=== PATIENT | male | born 1980 | race Caucasian/White ===

== ENCOUNTER 2020-08-19 11:42 | Outpatient (CLI) | payer OTHER, SELFPAY ==
--- NOTE | 2020-08-19 11:58 | ECG_ITS ---
Measurements Intervals Henry Rate: 65 P: 16 AK: 143 QRS: 120 QRSD: 113 T: 74 QT: 409 QTc: 427 Interpretive Statements SINUS RHYTHM WITH SINUS ARRHYTHMIA DELAYED PRECORDIAL R/S TRANSITION BORDERLINE T WAVE ABNORMALITY- ANTEROLAT/HIGH LAT LEADS BORDERLINE ECG Electronically Signed On 08-19-2020 13:02:31 INFORMATICS EDUCATOR by Gabino Mercer D.O.
[2020-08-19 12:50] LABS: Hematocrit 43.5 % (42.0-52.0); Mean Corpuscular HGB Conc 32.2 g/dl (32-36); Mean Corpuscular Hemoglobin 28.8 pg (26-34); Mean Corpuscular Volume 89.5 fl (80-100); Mean Platelet Volume 10.3 fl (7.4-10.4); Platelet Count Result 278 k/mm3 (150-375); Red Blood Count 4.86 M/mm3 (4.6-6.20); Red Cell Distribution Width 13.6 % (11.5-14.5)
[2020-08-19 13:35] LABS: Prostate Specific Antigen 0.5 ng/mL (< OR = 4.0)
== END 2020-08-19 11:43 | disposition home or self-care (01) ==
LOC: ANHIMG 11:44
PROVIDERS: PCP Family Medicine; Visit Provider Physician Assistant Medical
DX: R07.9 Chest pain, unspecified (principal); I10 Essential (primary) hypertension; Z12.5 Encounter for screening for malignant neoplasm of prostate
CPT/HCPCS: 36415; 84153; 84443; 85027; 93005; G0103

== ENCOUNTER 2020-09-14 08:29 | Outpatient (CLI) | payer OTHER, SELFPAY ==
--- NOTE | 2020-09-14 08:53 | ECHO_ITS ---
Patient Info Name: Mike Alicea Age: 40 years : 1980 Gender: Male Ht: 74 in Wt: 300 lbs BSA: 2.72 m2 HR: 75 bpm BP: 150 / 101 mmHg Heart Rhythm: Sinus Rhythm Technical Quality: Fair Exam Date: 09/14/2020 9:14 AM Exam Location: [facility] Pulmonary Patient Status: Outpatient Admit Date: 09/14/2020 Staff Ordering Physician: Kristy Guardado PAC Automatic Print Developer: Cooper Stafford RDCS Attending Provider: Kristy Guardado Referring Physician: Geo FLEMING; Exam Type: CA echo doppler color flow Study Info Indications R07.9 - Chest pain, unspecified Complete two-dimensional, color flow and Doppler transthoracic echocardiogram is performed. History/Risk Factors Chest pain; HTN. Summary 1. Complete two-dimensional, color flow and Doppler transthoracic echocardiogram is performed. 2. Left ventricular chamber dimension is normal. 3. Left ventricular systolic function is normal, estimated at 60-65%. 4. The left ventricular diastolic function is normal. Left Ventricle Left ventricular chamber dimension is normal. Left ventricular systolic function is normal, estimated at 60-65%. The left ventricular diastolic function is normal. Right Ventricle Right ventricular chamber dimension is normal. Right ventricular systolic function is normal. Left Atria Left atrial chamber dimension is normal. Right Atria Right atrial chamber dimension is normal. Aortic Valve The aortic valve is trileaflet. There is no aortic valve stenosis. There is no aortic valve regurgitation. Pulmonic Valve There is no pulmonic regurgitation. Mitral Valve There is no mitral valve stenosis. There is no mitral valve regurgitation. Tricuspid Valve There is no tricuspid valve regurgitation. Pericardium/Pleural There is no pericardial effusion. Inferior Vena Cava Normal inferior vena cava with >50% collapse upon inspiration consistent with normal right atrial pressure, 5 mmHg. Aorta The aortic root size at the sinus of Valsalva is normal. Left Ventricular Outflow Tract Name Value Normal LVOT 2D LVOT Diameter 2.0 cm LVOT Doppler LVOT Peak Velocity 130 cm/s LVOT Peak Gradient 7 mmHg LVOT Mean Gradient 3 mmHg LVOT VTI 26 cm LVOT VTI/AV VTI Ratio 0.8 LVOT Stroke Volume 81 ml LVOT CO 4.1 l/min LVOT CI 1.5 l/min/m2 Mitral Valve Name Value Normal MV Doppler MV Decel [place] 388 cm/s2 MV PHT 69 ms MV Area (PHT) 3.2 cm2 4.0-5.0 MV Diastolic Function
--- NOTE | 2020-09-14 08:53 | EST_ITS ---
Patient Info Name: Mike Alicea Age: 40 years : 1980 Gender: Male Ht: 74 in Wt: 300 lbs BSA: 2.72 m2 Exam Date: 09/14/2020 10:07 AM Exam Location: [facility] Stress Patient Status: Outpatient Admit Date: 09/14/2020 Staff Ordering Physician: Kristy Guardado PAC Attending Provider: Kristy Guardado Exercise Technologist: Panfilo Fink RDCS, RT Exercise Physician: Gabino Mercer DO Exam Type: CA stress test treadmill Study Info A treadmill exercise stress test was performed. Summary 1. 1. Negative Royer exercise stress test for ischemic ST changes by ECG criteria. However, he achieved only 81% MPHR for age group which decreases sensitivity of the test. He is limited by shortness of breath. 2. 2. Poor functional capacity, achieving 7 METs of workload. 3. 3. Hypertensive response to exercise. 4. 4. Appropriate HR response to exercise. 5. 5. Appropriate HR recovery at 1 minute post exercise. 6. 6. No imaging with stress testing. 7. 7. Patient informed of the above results. Protocol: Royer Stress ECG Details Stage: REST Duration (min): 2 min : 15 sec Speed (mph): 0.0 Grade (%): 0 HR (bpm): 75 SBP (mmHg): 137 DBP (mmHg): 90 METS: --- Stage: REST Duration (min): 4 min : 15 sec Speed (mph): 0.0 Grade (%): 0 HR (bpm): 82 SBP (mmHg): 137 DBP (mmHg): 90 METS: --- Stage: STAGE 1 Duration (min): 1 min : 0 sec Speed (mph): 1.7 Grade (%): 10 HR (bpm): 108 SBP (mmHg): 137 DBP (mmHg): 90 METS: --- Stage: STAGE 1 Duration (min): 2 min : 0 sec Speed (mph): 1.7 Grade (%): 10 HR (bpm): 118 SBP (mmHg): 137 DBP (mmHg): 90 METS: --- Stage: STAGE 1 Duration (min): 3 min : 0 sec Speed (mph): 1.7 Grade (%): 10 HR (bpm): 125 SBP (mmHg): 212 DBP (mmHg): 91 METS: --- Stage: STAGE 2 Duration (min): 1 min : 0 sec Speed (mph): 2.5 Grade (%): 12 HR (bpm): 136 SBP (mmHg): 212 DBP (mmHg): 91 METS: --- Stage: STAGE 2 Duration (min): 1 min : 47 sec Speed (mph): 2.5 Grade (%): 12 HR (bpm): 144 SBP (mmHg): 225 DBP (mmHg): 97 METS: --- Stage: RECOVERY Duration (min): 0 min : 12 sec Speed (mph): 1.5 Grade (%): 0 HR (bpm): 145 SBP (mmHg): 225 DBP (mmHg): 97 METS: --- Stage: RECOVERY Duration (min): 1 min : 12 sec Speed (mph): 0.0 Grade (%): 0 HR (bpm): 133 SBP (mmHg): 225 DBP (mmHg): 97 METS: --- Stage: RECOVERY Duration (min): 2 min : 12 sec Speed (mph): 0.0 Grade (%): 0 HR (bpm): 119 SBP (mmHg): 225 DBP (mmHg): 97 METS: --- Stage: RECOVERY Duration (min): 3 min : 12 sec Speed (mph): 0.0 Grade (%): 0 HR (bpm): 111 SBP (mmHg): 213 DBP (mmHg): 96 METS: --- Stage: RECOVERY Duration (min): 4 min : 12 sec Speed (mph): 0.0 Grade (%): 0 HR (bpm): 103 SBP (mmHg): 213 DBP (mmHg): 96
== END 2020-09-14 08:30 | disposition home or self-care (01) ==
PROVIDERS: PCP Family Medicine; Visit Provider Physician Assistant Medical
DX: R07.9 Chest pain, unspecified (principal); I10 Essential (primary) hypertension
CPT/HCPCS: 93017; 93306

== ENCOUNTER 2020-09-26 13:02 | Outpatient (CLI) | payer OTHER, SELFPAY ==
--- NOTE | ~2020-09-26 | XR_ITS ---
XR chest 2V 09/26/2020 13:28 Indication: Chest pain, shortness of breath and cough Procedure: PA and lateral views of the chest Comparison: Comparison to multiple prior studies sequentially, with oldest reviewed study dated 12/30. Findings: Heart size is normal. There is calcified granuloma left lower lung zone. There is a side pl ate and screws transfixing the left clavicle. No acute osseous abnormality. No focal air space diseas e, pulmonary edema, pleural effusion or suspected pneumothorax. Impression: 1: No acute cardiopulmonary disease. Reviewed, dictated and finalized at location A. CTION CONTROL PRACTITIONER Impression: 1: No acute cardiopulmonary disease.
[2020-09-26 13:26] LABS: Hematocrit 45.5 % (42.0-52.0); Hemoglobin 14.9 g/dL (14.0-18.0); Mean Corpuscular HGB Conc 32.7 g/dl (32-36); Mean Corpuscular Hemoglobin 28.7 pg (26-34); Mean Corpuscular Volume 87.7 fl (80-100); Mean Platelet Volume 9.6 fl (7.4-10.4); Platelet Count Result 297 k/mm3 (150-375); Red Blood Count 5.19 M/mm3 (4.6-6.20); Red Cell Distribution Width 13.9 % (11.5-14.5); White Blood Count 11.2 K/mm3 (4.5-10.0)
[2020-09-26 13:37] LABS: Alanine Aminotransferase 45 U/L (4-50); Albumin Level 3.8 g/dL (3.5-5.1); Alkaline Phosphatase 127 U/L (38-126); Anion Gap 4 mmol/L (8-16); Aspartate Amino Transferase 45 U/L (17-59); Bilirubin,Total 0.4 mg/dL (0.2-1.3); Blood Urea Nitrogen 8 mg/dL (9-20); Carbon Dioxide 27 mmol/L (22-30); Chloride 106 mmol/L (98-107); Cholesterol 205 mg/dL (0-200); Estimated Glomerular Filt Rate > 60; Glucose 109 mg/dL (75-110); HDL Direct 25 mg/dL; Potassium 4.1 mmol/L (3.4-5.0); Sodium 137 mmol/L (137-145); Triglycerides 154 mg/dL (<150)
[2020-09-26 13:48] LABS: LDL Cholesterol Direct 176 mg/dL
[2020-09-26 14:32] LABS: Vitamin D 25 Hydroxy 13.2 ng/mL
== END 2020-09-26 13:03 | disposition home or self-care (01) ==
LOC: ANHLAB 13:05
PROVIDERS: Physician Assistant Medical; PCP Family Medicine; Visit Provider Nurse Practitioner Family
DX: R20.2 Paresthesia of skin (principal); E55.9 Vitamin D deficiency, unspecified; I10 Essential (primary) hypertension; Z13.220 Encounter for screening for lipoid disorders; R07.9 Chest pain, unspecified; Z12.5 Encounter for screening for malignant neoplasm of prostate
CPT/HCPCS: 36415; 71046; 80053; 80061; 82306; 82607; 85027

== ENCOUNTER 2021-10-30 09:31 | Outpatient (CLI) | payer BC, SELFPAY ==
--- NOTE | ~2021-10-30 | US_ITS ---
EXAMINATION: US abdomen complete EXAM DATE: 10/30/2021 11:22 INDICATION: R10.12 - Left upper quadrant pain. TECHNIQUE: Multiple grayscale and Doppler images of the complete abdomen were obtained (by a technolo gist who performed the scan) and subsequently reviewed. Correlation is made to right upper quadrant s on2012. FINDINGS: Suboptimal exam due to patient's body habitus. The abdominal aorta is normal in caliber. Visualized portion IVC is patent. The pancreatic head a nd body are normal in appearance. The pancreatic tail is not visualized. There is echogenic liver parenchyma with poor penetration, hepatic steatosis. There are no focal philippe er lesions identified. There is no evidence of intrahepatic biliary duct dilation. Portal venous f low was seen in the hepatopedal, normal direction and has normal Doppler waveform. Common bile duct measures 5 mm, which is normal. The gallbladder fossa is unremarkable. Right kidney: There is normal contour and echogenicity. It measures 11.8 x 5.7 x 5.0 centimeters. There are no focal renal lesions identified. There is no hydronephrosis. Left kidney: There is normal contour and echogenicity. It measures 13.6 x 6.5 x 8.4 centimeters. T here are no focal renal lesions identified. There is no hydronephrosis. Spleen suboptimally visualized but dimensions provided at 15.5 x 4.6 cm. IMPRESSION: 1. Hepatic steatosis. 2. Borderline splenomegaly. Reviewed, dictated and finalized at location G. BUSINESS INTELLIGENCE CONSULTANT
== END 2021-10-30 09:32 | disposition home or self-care (01) ==
LOC: ANHIMG 09:37
PROVIDERS: PCP Family Medicine; Visit Provider Nurse Practitioner Family
DX: R10.12 Left upper quadrant pain (principal); K76.0 Fatty (change of) liver, not elsewhere classified
CPT/HCPCS: 76700

== ENCOUNTER 2021-12-14 15:04 | Outpatient (CLI) | payer BC, SELFPAY ==
[2021-12-14 15:53] LABS: Iron 41 ug/dL (49-181)
[2021-12-14 16:03] LABS: Percent Iron Saturation 12 % (20-50)
[2021-12-18 13:12] LABS: Mitochondrial (M2) Ab (IgG) <=20.0 U (<=20.0)
[2021-12-20 11:33] LABS: Tissue Transglutaminase IgA Ab <1.0 U/mL (<15.0)
[2021-12-20 12:32] LABS: Tissue Transglutaminase IgG Ab <1.0 U/mL (<15.0)
[2021-12-21 11:46] LABS: Ceruloplasmin 40 mg/dL (18-36)
[2021-12-28 23:41] LABS: ALT 38 U/L (9-46); Alpha-2-Macroglobulin 163 mg/dL (106-279); Apolipoprotein A1 107 mg/dL (94-176); Fibrosis Score 0.11; Fibrosis Stage F0; GGT 52 U/L (3-95); Haptoglobin 329 mg/dL (43-212); Necroinflammat Act Grade A0; Total Bilirubin 0.3 mg/dL (0.2-1.2)
== END 2021-12-14 15:05 | disposition home or self-care (01) ==
LOC: ANHLAB 15:08
PROVIDERS: PCP Family Medicine; Visit Provider Internal Medicine Gastroenterology
DX: R74.8 Abnormal levels of other serum enzymes (principal)
CPT/HCPCS: 36415; 81596; 82104; 82390; 82728; 83516; 83520; 83540; 83550

== ENCOUNTER 2024-02-05 17:45 | Emergency (ER) | payer BC, SELFPAY ==
[2024-02-05 17:54] VITALS: BP 149/104; PULSE 73; RESP 16; TEMP 36.4; O2SAT 98
--- NOTE | 2024-02-05 17:59 | ED.URI ---
HPI - URI/Sore Throat General Chief Complaint: Upper Respiratory Infection Stated Complaint: SORE IN TOP OF MOUTH/SINUS PAIN Time Seen by Provider: 02/05/24 17:55 Source: patient and RN notes reviewed Mode of arrival: ambulatory Limitations: no limitations History of Present Illness HPI Narrative: 43-year-old male presents with concern for sinus pain this started this morning in the sore on top of his mouth this started 2 days ago. Reports some nasal drainage. Reports general malaise. Denies fever, aches, chills. Denies taking any medication for his symptoms other than zinc and vitamin-C. MD elicited complaint: sinus pain Related Data Allergies Allergy/AdvReac Type Severity Reaction Status Date / Time sertraline Allergy Unknown Unknown Verified 02/05/24 18:06 Review of Systems Review of Systems: CONSTITUTIONAL: Reports malaise. Denies chills, sweats, or fever. EYES: Denies visual changes, redness, or discharge. ENT: Reports rhinorrhea, congestion, sinus pain CARDIOVASCULAR: Denies chest pain, palpitations, or edema. RESPIRATORY: Denies cough. Denies dyspnea. GASTROINTESTINAL: Denies abdominal pain, nausea, vomiting, diarrhea SKIN: Denies rash or itching. MUSCULOSKELETAL: Denies myalgia. NEUROLOGIC: Denies headache. All systems reviewed & are unremarkable except as noted in HPI and below PMFSH Past Medical History Medical History BMI 38.0-38.9,adult Hepatic steatosis Left sided abdominal pain Morbid obesity Splenomegaly Tobacco abuse Family History Family History Father Hypertension Family history of alcoholism Cerebrovascular accident Family history of coronary artery disease Mother Family history of lung cancer Sibling No problems noted. Other Family history of malignant neoplasm Social History Social History Smoking packs per day: 2 Smoking cigarettes per day: 40.0 Years smoked: 22 Smoking pack-years: 44.00 Alcohol intake: current Comments At time of signature, agree with nursing past medical, surgical, social and family history. There is no relevant family history pertinent to the presenting complaint Exam Narrative: GENERAL: Well-appearing, well-nourished, and in no acute distress. HEAD: Normocephalic EYES: PERRLA, conjunctivae clear ENT: Nares clear. Mucous membranes moist. TM pearly marroquin with dull light reflex bilaterally; no tragal tenderness. Oropharynx not erythematous without lesions. Tonsils not enlarged and without exudate, no drooling, no hoarseness, no trismus, uvula midline. NECK: Supple. No lymphadenopathy CHEST: Clear to auscultation, breath sounds equal. No wheezing, rhonchi, rales, or stridor. No respiratory distress, speaks in full sentences. HEART: Regular rate and rhythm. No murmur heard. SKIN: Warm, dry, no rash. NEURO: Alert and oriented x3. PSYCH: Normal mood and affect Course Course Emergency Course: Patient is aware of diagnosis, understands and agrees to treatment plan. Anticipatory guidance given. Patient agrees to follow-up as directed and is aware of reasons to seek care at the emergency department. Portions of this record may have been created with voice recognition software Level of Care: Express Care Visit Vital Signs Vital signs: Vital Signs Temperature 97.6 F 02/05/24 17:54 Pulse Rate 73 02/05/24 17:54 Respiratory Rate 16 02/05/24 17:54 Blood Pressure 149/104 H 02/05/24 17:54 Pulse Oximetry 98 02/05/24 17:54 Temperature 97.6 F 02/05/24 17:54 Pulse Rate 73 02/05/24 17:54 Respiratory Rate 16 02/05/24 17:54 Blood Pressure 149/104 H 02/05/24 17:54 Pulse Oximetry 98 02/05/24 17:54 Reviewed. MDM - URI/Sore Throat MDM Narrative Medical decision making narrative: Differential diagnosi
== END 2024-02-05 18:26 | disposition home or self-care (01) ==
PROVIDERS: Emergency Provider Nurse Practitioner; PCP Family Medicine
DX: J06.9 Acute upper respiratory infection, unspecified (principal); F17.210 Nicotine dependence, cigarettes, uncomplicated; K76.0 Fatty (change of) liver, not elsewhere classified; E66.01 Morbid (severe) obesity due to excess calories; Z68.41 Body mass index [BMI] 40.0-44.9, adult
CPT/HCPCS: 87804; 99213; G0463

== ENCOUNTER 2024-12-19 20:19 | Emergency (ER) | payer SELFPAY ==
--- NOTE | ~2024-12-19 | CT_ITS ---
Clinical Indication: Dyspnea CT Scan of the Chest with Contrast: Technique: Contiguous sections were acquired throughout the chest after intravenous administration of 100 cc of Omnipaque 350. Dose reduction technique was used on this scan by utilizing automated expos ure control and iterative reconstruction technique. The dose-length product (DLP) was 984.44 mGy-cm. Findings: There is no evidence of any significant mediastinal, hilar or axillary lymphadenopathy. Large calcifi ed left hilar lymph node present. There is no filling defect in the pulmonary arterial tree to sugges t pulmonary embolus. There is no evidence of aortic dissection or aneurysm. There is no evidence of pleural or pericardial effusion. 7 mm pleural-based nodule present in the posterior left lower lobe (axial image 99). Calcified left l ower lobe granulomas present. Images through the upper abdomen reveal 3.5 cm low-density left adrenal nodule, compatible adenoma. S hotty epigastric/peripancreatic lymph nodes are present. Impression: No evidence of pulmonary embolus, aortic dissection, or aortic aneurysm. 7 mm pleural-based nodule left lower lobe. According to Fleischner Society criteria, for a low-risk p atient, recommend follow-up CT scan in 6-12 months, then consider additional 18-[address] For a hi gh-risk patient, follow-up CT scans at both 6-12 months and 18-24 months are recommended. Evidence of prior granulomatous disease. Reviewed, dictated and finalized at [facility]. Impression: No evidence of pulmonary embolus, aortic dissection, or aortic aneurysm. 7 mm pleural-based nodule left lower lobe. According to Fleischner Society crit erlilia, for a low-risk patient, recommend follow-up CT scan in 6-12 months, then consider additional 18-[address] For a high-risk patient, follow-up CT scans at both 6-12 months and 18-24 months are recommended. Evidence of prior granulomatous disease.
--- NOTE | ~2024-12-19 | XR_ITS ---
XR chest 2V Ordering provider: Kiran Phillips MD History: 44 years Male with . SOB . Comparison: September 26, 2020 FINDINGS: MEDIASTINUM: The cardiac silhouette is not enlarged. Left hilar opacity is noted which is unchanged f rom previous examination LUNGS: No effusions or pneumothorax. Opacification in the left lung base is seen suggestive of atelec tasis versus pneumonia. OTHER: No free air under the diaphragm. Postoperative changes in the left clavicle IMPRESSION: Atelectasis versus pneumonia in the left lung base. Follow-up advised. Left hilar opacity unchanged from previous examination. Reviewed, dictated and finalized at location A. STICS TEAM LEAD
[2024-12-19 20:21] VITALS: BP 224/95; PULSE 103; RESP 18; TEMP 36.4; O2SAT 99
--- NOTE | 2024-12-19 20:21 | ECG_ITS ---
Test Date: 2024-12-19 20:29:41 Measurements Intervals [place] Rate: 81 P: 36 MI: 165 QRS: 241 QRSD: 109 T: 80 QT: 382 QTc: 444 Interpretive Statements SINUS RHYTHM INDETERMINATE AXIS INCOMPLETE RIGHT BUNDLE BRANCH BLOCK ABNORMAL ECG No previous ECG available for comparison Electronically Signed On 12-20-2024 07:57:29 CDT by Vijay Saravia M.D.
[2024-12-19 20:43] LABS: Basophils Absolute Auto 0.1 K/mm3 (0.0-0.1); Basophils Percent Auto 1.1 % (0.2-1.2); Eosinophils Absolute Auto 0.2 K/mm3 (0-0.3); Eosinophils Percent Auto 2.2 % (0-4.4); Hematocrit 44.7 % (42.0-52.0); Hemoglobin 14.8 g/dL (14.0-18.0); Immature Granulocyte Absolute 0.03 K/mm3 (0.00-0.031); Immature Granulocyte Percent A 0.4 % (0-0.5); Lymphocytes Absolute Auto 2.55 K/mm3 (0.9-3.2); Lymphocytes Percent Auto 29.8 % (18.3-44.2); Mean Corpuscular HGB Conc 33.1 g/dl (32-36); Mean Corpuscular Hemoglobin 29.2 pg (26-34); Mean Corpuscular Volume 88.2 fl (80-100); Mean Platelet Volume 10.2 fl (7.4-10.4); Monocytes Absolute Auto 0.4 K/mm3 (0.1-0.6); Monocytes Percent Auto 5.1 % (2.6-8.5); Neutrophils Absolute Auto 5.3 K/mm3 (1.3-6.7); Neutrophils Percent Auto 61.4 % (45.5-73.1); Platelet Count Result 224 k/mm3 (150-375); Red Blood Count 5.07 M/mm3 (4.6-6.20); Red Cell Distribution Width 13.6 % (11.5-14.5); White Blood Count 8.6 K/mm3 (4.5-10.0)
[2024-12-19 20:54] LABS: Alanine Aminotransferase 52 U/L (6-50); Albumin Level 4.5 g/dL (3.5-5.1); Alkaline Phosphatase 101 U/L (38-126); Anion Gap 10 mmol/L (4-12); Aspartate Amino Transferase 39 U/L (17-59); Bilirubin,Total 0.5 mg/dL (0.2-1.3); Blood Urea Nitrogen 11 mg/dL (9-20); Calcium 9.5 mg/dL (8.4-10.2); Carbon Dioxide 29 mmol/L (22-30); Chloride 102 mmol/L (98-107); Estimated CRCL calculation 156 ml/min; Estimated Glomerular Filt Rate > 60; Glucose 119 mg/dL (65-110); Potassium 3.8 mmol/L (3.4-5.0); Sodium 141 mmol/L (137-145)
--- NOTE | 2024-12-19 21:11 | ED.SOB ---
HPI - SOB/Dyspnea General Chief Complaint: Shortness of Breath/Dyspnea Stated Complaint: Shortness of breath, hands tingling, HTN Time Seen by Provider: 12/19/24 20:54 Source: patient Mode of arrival: ambulatory Limitations: no limitations History of Present Illness HPI Narrative: This is a 44-year-old male reports a history pre diabetes, who presents to the emergency department complaining of dyspnea on exertion and shortness of breath for the past week. The patient states he has felt short of breath after walking approximately 2-3 blocks. He states while at rest today he felt some shortness of breath. He denies chest pain or loss of consciousness. States he has had lower extremity swelling for years that is not recently changed. He denies any known sick contacts or recent travel. He has no other complaints at this time. Related Data Allergies Allergy/AdvReac Type Severity Reaction Status Date / Time sertraline Allergy Unknown Unknown Verified 12/19/24 20:20 Review of Systems Review of Systems: All systems reviewed & are unremarkable except as noted in HPI and below PMFSH Past Medical History Medical History Hepatic steatosis Splenomegaly Left sided abdominal pain Morbid obesity Tobacco abuse BMI 38.0-38.9,adult Family History Family History Father Hypertension Family history of alcoholism Cerebrovascular accident Family history of coronary artery disease Mother Family history of lung cancer Sibling No problems noted. Other Family history of malignant neoplasm Social History Social History Smoking packs per day: 2 Smoking cigarettes per day: 40.0 Years smoked: 22 Smoking pack-years: 44.00 Alcohol intake: current Exam Narrative: GENERAL: Well-developed, well-nourished, and in no acute distress. HEAD: Normocephalic, atraumatic. EYES: PERRLA and EOMI. NECK: Supple. No JVD CHEST: Clear to auscultation. No respiratory distress. No wheezes rales or rhonchi HEART: Regular rate and rhythm. No murmur heard. Normal peripheral pulses. ABDOMEN: Soft, nontender, nondistended, normal active bowel sounds. EXTREMITIES: Normal range of motion. Trace bilateral lower extremity edema SKIN: Warm, dry, no rash. NEURO: Alert and oriented x3. No focal deficit. Moving all 4 limbs spontaneously PSYCH: Normal mood and affect. Course Course Emergency Course: 21:13 - CBC unremarkable. Chemistries within normal limits. Chest x-ray showed consolidation in left lower lobe concerning for atelectasis versus pneumonia. Concerning the patient's symptoms I have increased suspicion for pneumonia. EKG not concerning for ischemia. 00:14 - D-dimer positive. Stat rad interpretation of CTA chest was degraded by motion. There is ?no large or central pulmonary embolism. Limited evaluation for small distal pulmonary emboli due to motion.? No other acute findings are noted. By my review, there appears to be a nodule versus granuloma in the left hilum. BNP and troponin negative. I do not suspect CHF or ACS cause of the patient's symptoms. Will treat for pneumonia with recommendation for primary care follow-up. On review of the patient's monitor, his blood pressure improved to 150s over 80s. I discussed the findings and recommendations with the patient. Discussed return and emergency precautions including signs/symptoms of ACS and respiratory distress. The patient voiced understanding and agreement with the plan. All questions answered to his satisfaction. Vital Signs Vital signs: Vital Signs Temperature 97.6 F 12/19/24 20:21 Pulse Rate 103 H 12/19/24 20:21 Respiratory Rate 18 12/19/24 20:21 Blood Pressure 224/95 H 12/19/24 20:21 Pulse Oximetry 99 12/19/24 20:21 Oxygen Delivery Room Air 12/19/24 20:21 Temperature 97.6 F 12/19/24 20:21 Pulse Rate 76 12/20/24 00:33 Respiratory Rate 20 12/20/24 00:33 Blood Pressure 156/92 H 12/20/24 00:33 Pulse Oximetry 97 12/20/24 00:33 Oxygen Delivery Room Air 12/19/24 21:40 MDM - SOB/Dyspnea MDM Narrative Medical decision making narrative: Plan: Labs, EKG, troponin, BNP, blood pressure control, imaging, reassess Differential Diagnosis Differential diagnosis: Likely congestive heart failure and other (Pneumonia, COVID, influenza, RSV, ACS, metabolic abnormality, other) Lab Data 12/19/24 20:37 12/19/24 20:37 Labs: Lab Results 03/08/25 03/08/25 Range/Units 20:36 20:37 WBC 8.6 (4.5-10.0) K/mm3 RBC 5.07 (4.6-6.20) M/mm3 Hgb 14.8 (14.0-18.0) g/dL Hct 44.7 (42.0-52.0) % MCV 88.2 (80-100) fl MCH 29.2 (26-34) pg MCHC 33.1 (32-36) g/dl RDW 13.6 (11.5-14.5) % Plt Count 224 (150-375) k/mm3 MPV 10.2 (7.4-10.4) fl Immature Gran % (Auto) 0.4 (0-0.5) % Neut % (Auto) 61.4 (45.5-73.1) % Lymph % (Auto) 29.8 (18.3-44.2) % Atkinson % (Auto) 5.1 (2.6-8.5) % Eos % (Auto) 2.2 (0-4.4) % Baso % (Auto) 1.1 (0.2-1.2) % Lymph # (Auto) 2.55 (0.9-3.2) K/mm3 Atkinson # (Auto) 0.4 (0.1-0.6) K/mm3 Eos # (Auto) 0.2 (0-0.3) K/mm3 Baso # (Auto) 0.1 (0.0-0.1) K/mm3 Abs Immat Gran (auto) 0.03 (0.00-0.031) K/mm3 Absolute Neuts (auto) 5.3 (1.3-6.7) K/mm3 Absolute Nucleated RBC 0.000 (0.0-0.012) K/mm3 Nucleated RBC % 0.0 (0.0-0.2) % D-Dimer 0.66 H (<0.48) ug/mL Sodium 141 (137-145) mmol/L Potassium 3.8 (3.4-5.0) mmol/L Chloride 102 (98-107) mmol/L Carbon Dioxide 29 (22-30) mmol/L Anion Gap 10 (4-12) mmol/L BUN 11 (9-20) mg/dL Creatinine 0.79 (0.7-1.3) mg/dL Estim Creat Clear Calc 156 ml/min Estimated GFR > 60 (59 - ) Glucose 119 H (65-110) mg/dL Calcium 9.5 (8.4-10.2) mg/dL Total Bilirubin 0.5 (0.2-1.3) mg/dL AST 39 (17-59) U/L ALT 52 H (6-50) U/L Alkaline Phosphatase 101 (38-126) U/L Troponin I < 0.012 (0.000-0.034) ng/mL NT-Pro-B Natriuret Pep < 20 (19.9-100) pg/mL Total Protein 8.0 (6.3-8.2) g/dL Albumin 4.5 (3.5-5.1) g/dL ECG Data EKG #1: Attestation: I personally reviewed and interpreted this ECG as follows: ECG completion date: 12/19/24 ECG completion time: 20:29 Prior ECG tracings: available for review Interpretation: Sinus rhythm, rate 81, left axis deviation, incomplete right bundle-branch block, no ST segment elevations or T-wave inversions concerning for ischemia, normal intervals with QTC of 444 Discharge Plan Discharge Clinical Impression: Elevated blood pressure reading, Dyspnea on exertion, Consolidation of left lower lobe of lung Patient Disposition: Home, Self-Care Condition: Stable Instructions: Antibiotic Form, Dyspnea (ED) Additional Instructions: You were seen in the emergency department. Your labs and EKG are not concerning for injury to the heart. A BNP was not concerning for heart failure. Chest x-ray showed changes that may be consistent with pneumonia in the left lung base. A CT scan did not demonstrate an obvious pulmonary embolism though appears to demonstrate a lung nodule. I recommend a course of antibiotics and follow-up with your primary care doctor. If you develop no worsening difficulty breathing, chest pain, loss of consciousness, or if you have other emergent concerns for life, limb, or eyesight, return to the emergency department. Patient Language: Czech Prescriptions: New amlodipine [Norvasc] 10 mg tablet 10 mg PO DAILY Qty: 30 0RF azithromycin 250 mg tablet 250 mg PO DAILY 4 Days Qty: 4 0RF Rx Instructions: start on day 2 of therapy No Action pseudoephedrine HCl [12 Hour Decongestant] 120 mg tablet extended release 120 mg PO Q12H PRN (Reason: nasal congestion) Qty: 12 0RF fluticasone propionate [Flonase Allergy Relief] 50 mcg/actuation spray,suspension 2 spray NASAL DAILY 14 Days Qty: 15.8 0RF Rx Instructions: administer into each nostril Follow-up/Referrals: Samy Hendrickson MD [Primary Care Provider] - 1 Week Time of Disposition: 00:18
[2024-12-19] MEDS: amLODIPine BESYLATE 10 MG TABLET PO (21:15)
[2024-12-19 21:38] LABS: D Dimer 0.66 ug/mL (<0.48)
[2024-12-19 21:40] VITALS: O2SAT 97
[2024-12-19 21:47] LABS: NT Pro B Type Natriuretic Pept < 20 pg/mL (19.9-100); Troponin I < 0.012 ng/mL (0.000-0.034)
[2024-12-20 00:08] VITALS: BP 163/86; PULSE 71; RESP 18; O2SAT 97
[2024-12-20 00:09] VITALS: PULSE 74
[2024-12-20] MEDS: AZITHROMYCIN 250 MG TABLET 500 MG PO (00:32)
[2024-12-20 00:33] VITALS: BP 156/92; PULSE 76; RESP 20; O2SAT 97
== END 2024-12-20 00:35 | disposition home or self-care (01) ==
PROVIDERS: Emergency Provider Preventive Medicine Aerospace Medicine; PCP Family Medicine
DX: J18.1 Lobar pneumonia, unspecified organism (principal); R03.0 Elevated blood-pressure reading, without diagnosis of hypertension; R06.00 Dyspnea, unspecified; F17.210 Nicotine dependence, cigarettes, uncomplicated; E66.01 Morbid (severe) obesity due to excess calories; Z68.41 Body mass index [BMI] 40.0-44.9, adult
CPT/HCPCS: 36415; 71046; 71275; 80053; 83880; 84484; 85025; 85380; 93005; 99284; A9270; Q9967

== ENCOUNTER 2025-01-13 12:56 | Outpatient (CLI) | payer BC, SELFPAY ==
--- NOTE | 2025-01-13 17:31 | WPDPFTINT ---
PFT Procedure Performed PFT Procedure Performed Spirometry with Pre/Post Bronchodilator Plethysmography (Lung Vol) Diffusing Cap (DLCO) Flow Vol Loop PFT Interpretation This is a pulmonary function test with pre and post-bronchodilator spirometry, plethysmography and diffusing capacity. The test was performed and results interpreted in accordance with the 2019 and 2005 ATS/ERS Task Force guidelines respectively using the Global Lung Function Initiative-2012 reference equations. Patient demonstrated good effort and cooperation. Reproducibility criteria were met. The quality of the pre bronchodilator spirometry maneuver was Grade A and post bronchodilator spirometry maneuver was Grade A. Findings: Spirometry: The contour the inspiratory and expiratory flow tracing are normal. The pre bronchodilator FVC is 4.66 L, 79% predicted. The pre bronchodilator FEV1 is 3.36 L, 73% predicted. The pre bronchodilator FEV1: FVC ratio 72%. The post bronchodilator FVC is 5.00 L, representing a 7% increase. The post bronchodilator FEV1 is 3.65 L, representing a 9% increase. The post bronchodilator FEV1: FVC ratio is 73%. Plethysmography: The total lung capacity is 7.50 L, 97% predicted. The functional residual capacity is 3.62 L, 91% predicted. The residual volume is 2.80 L, 130% predicted. Diffusing capacity: The diffusing capacity unadjusted for hemoglobin and carboxyhemoglobin is 27.0, 81% predicted. The diffusing capacity adjusted for alveolar volume is 4.11, 92% predicted. Impression: The FEV1 is less than 80% predicted and the FEV1: FVC ratio is greater than 70% consistent with Preserved Ratio Impaired Spirometry (PRISm) with a normal FVC. The spirometry is normal without evidence of an obstructive abnormality. There is no significant improvement after inhaling a single dose of albuterol. The lung volumes are normal. The diffusing capacity is normal. There are no prior studies for comparison
== END 2025-01-13 12:57 | disposition home or self-care (01) ==
LOC: ANHCARD 12:58
PROVIDERS: PCP Family Medicine; Visit Provider Physician Assistant Medical
DX: R00.2 Palpitations (principal); R06.02 Shortness of breath
CPT/HCPCS: 93242; 94060; 94726; 94729

== ENCOUNTER 2025-05-17 18:54 | Emergency (ER) | payer BC, SELFPAY ==
--- NOTE | 2025-05-17 19:00 | ED_ITS ---
HPI - Dental/Oral General Chief complaint: Dental/Oral Stated complaint: Tooth Pain Time Seen by Provider: 05/17/25 19:00 Source: patient, RN notes reviewed and old records reviewed Mode of arrival: ambulatory Limitations: no limitations History of Present Illness HPI Narrative: 44-year-old male presents to [facility] with complaints of dental pain. Symptoms started 1-2 days ago. Swelling started this morning. Very poor dentition, swelling to the right lower jaw. Related Data Allergies Allergy/AdvReac Type Severity Reaction Status Date / Time sertraline Allergy Unknown Unknown Verified 05/17/25 18:58 Review of Systems Review of Systems: All systems reviewed & are unremarkable except as noted in HPI and below Constitutional: Constitutional: Reports no additional constitutional complaints ENT: Reports as per HPI and Reports dental pain Cardiovascular: Cardiovascular: Reports no additional cardiovascular complaints, Denies chest pain and Denies dyspnea Respiratory: Respiratory: Reports no additional respiratory complaints, Denies chest congestion, Denies cough and Denies dyspnea Musculoskeletal: Musculoskeletal: Reports no additional musculoskeletal complaints Integumentary/Breasts: Skin/Breast: Reports system reviewed and no additional complaints, except as docu PMFSH Past Medical History Medical History Hepatic steatosis Splenomegaly Left sided abdominal pain Morbid obesity Tobacco abuse BMI 38.0-38.9,adult Family History Family History Father Hypertension Family history of alcoholism Cerebrovascular accident Family history of coronary artery disease Mother Family history of lung cancer Sibling No problems noted. Other Family history of malignant neoplasm Social History Social History Smoking packs per day: 2 Smoking cigarettes per day: 40.0 Years smoked: 22 Smoking pack-years: 44.00 Smoking status: Current every day smoker Alcohol intake: current Comments At the time of my signature, I reviewed and agree with the nursing past medical, surgical, social, and family history. There is no relevant family history pertinent to the patient complaint. Exam Const: General: cooperative, healthy appearing, comfortable, no acute distress, well developed, alert and well nourished Nutritional Appearance: well nourished and obese Orientation/consciousness: patient oriented x3 Limitations: no limitations HENMT: Head: normal to inspection Mouth: Yes Normal oral and palatal mucosa present, Yes lip normal, Yes tongue normal and Yes moist mucous membranes Teeth and gingiva: gingiva abnormal edematous (Right lower) and poor dentition Other: Multiple decayed teeth, swelling to the gingiva. Swelling to the jaw line without increased erythema. Eyes: General: appearance normal, both eyes and all related structures Alignment and Position: alignment normal Neck: Neck: normal visual inspection, full ROM, no lymphadenopathy and no meningeal signs Chest: Chest palpation & inspection: normal inspection of the chest Resp: Effort & Inspection: normal respiratory effort and able to speak in c omplete sentences Auscultation: clear to auscultation bilaterally, no crackles, no rales, no rhonchi and no wheezes Cardio: Rate: regular rate Skin: General skin exam: normal color and no rashes or lesions noted Neuro: General: patient oriented x3, gait normal, moves all extremities and no meningeal signs Cognition (Neuro): normal cognition Speech: normal speech Gait exam (Neuro): Normal gait present Extrem: General: normal to inspection, full ROM, capillary refill normal and normal gait Psych: Appearance: grossly normal and well kempt Mental Status: mental status grossly normal Speech and movement: Normal speech and movement present and Clear speech present Affect: normal affect Attitude: cooperative Course Course Level of Care: Express Care Visit Vital Signs Vital signs: Vital Signs Temperature 97.2 F L 05/17/25 19:01 Pulse Rate 81 05/17/25 19:01 Respiratory Rate 20 05/17/25 19:01 Blood Pressure 173/106 H 05/17/25 19:01 Pulse Oximetry 98 05/17/25 19:01 Oxygen Delivery Room Air 05/17/25 19:01 Temperature 97.2 F L 05/17/25 19:01 Pulse Rate 81 05/17/25 19:01 Respiratory Rate 20 05/17/25 19:01 Blood Pressure 173/106 H 05/17/25 19:01 Pulse Oximetry 98 05/17/25 19:01 Oxygen Delivery Room Air 05/17/25 19:01 Reviewed MDM - Dental/Oral MDM Narrative Medical decision making narrative: Patient sitting exam room. Patient is nontoxic, vitals stable. Patient presents with jaw swelling that started this morning dental pain started yesterday. Patient appropriate for outpatient treatment with close follow-up, antibiotics Dental list given Has a follow-up with primary care provider tomorrow Discharge instructions reviewed with patient, as well as provided in writing per nursing staff. The instructions also include specific and strict return/GO TO THE ER as well as f/u information. All questions have been answered, and the patient deny any further questions with discharge and discharge plan. Some parts of this dictation were generated by voice recognition software and may contain typographical and/or grammatical inaccuracies. Differential Diagnosis Differential diagnosis: Likely gingival abscess, dental caries, toothache and dental abscess Critical Care Time Critical Care Time Critical Care Time: No Discharge Plan Discharge Clinical Impression: Dental decay, Dental infection Patient Disposition: Home Condition: Stable Instructions: Dental Abscess (ED) Additional Instructions: Finish the entire course of antibiotics Good oral hygiene, brushing her teeth twice a day and using a good mouthwash at least twice a day is very important Apply ice to face to help with pain. Take Tylenol alternating with Motrin as needed for pain. You can alternate every 4 hours Contact your dry transfer man let them know about the dental infection. Follow-up with your primary care provider. Today your blood pressure was 173/106. You need to follow-up with a dental provider as soon as possible for further e valuation and treatment. A list of dental providers has been given to you Follow up with a Primary Care Provider (PCP) about medical needs. A PCP can help keep you healthy by preventive medicine and screening. Go to the ER for New or worsening symptoms. Patient Language: Algerian Prescriptions: New penicillin V potassium 500 mg tablet 500 mg PO QID 7 Days Qty: 28 0RF No Action amlodipine [Norvasc] 10 mg tablet 10 mg PO DAILY Qty: 90 0RF Follow-up/Referrals: Samy Hendrickson MD [Primary Care Provider] - 1 Week (express care follow up dental infection and blood pressure check) Stand Alone Forms: Work/School Release IP Time of Disposition: 19:07
[2025-05-17 19:01] VITALS: BP 173/106; PULSE 81; RESP 20; TEMP 36.2; O2SAT 98
== END 2025-05-17 19:10 | disposition home or self-care (01) ==
PROVIDERS: Emergency Provider Nurse Practitioner; PCP Family Medicine
DX: K02.9 Dental caries, unspecified (principal); K04.7 Periapical abscess without sinus; F17.210 Nicotine dependence, cigarettes, uncomplicated
CPT/HCPCS: 99213; G0463

== ENCOUNTER 2025-06-07 00:43 | Day surgery (SDC) | payer BC, SELFPAY ==
[2025-06-04 15:35] VITALS: BMI 45.0
[2025-06-07] VITALS (16 sets, daily range): BP systolic 132–180; BP diastolic 65–93; PULSE 77–89; RESP 14–18; TEMP 36.4; O2SAT 92–98; BMI 42.6
--- OUTSIDE RECORDS SUMMARY | 2025-06-07 00:46 | XMS_ITS | Clinical Summary ---
Author Organization [facility] [address] [place] [address] Address [address] [facility] [address] [place] [address] Care Team Providers Care Student Financial Aid Manager Name Role Phone Samy Hendrickson MD Primary Care Provider [phone] Allergies No known active allergies Medications amLODIPine (NORVASC) 10 mg tablet Take 1 tablet (10 mg total) by mouth daily 02/27/2025 Active Active Problems Problem Noted Date Diagnosed Date Chest pain 03/19/2025 Shortness of breath 03/19/2025 Supraventricular tachycardia, unspecified 2024 Encounters Date Type Department Care Team Description 05/12/2025 Telephone [facility] Cardiology at [address] [place] [address] Vijay Saravia MD 05/11/2025 11:15 AM CDT Office Visit [facility] Cardiology at [address] [place] [address] Vijay Saravia MD Abnormal cardiovascular stress test (Primary Dx) 05/11/2025 Telephone [facility] Cardiology [address] [place] [address] [address] [place] [address] Vijay Saravia MD Cardiac Cath Order ; Hypertension 03/23/2025 11:00 AM CDT Ancillary Procedure [facility] Cardiology at [address] [place] [address] Chest pain, unspecified type; Shortness of breath 03/19/2025 10:00 AM CDT Office Visit [facility] Cardiology [address] [facility] [address] [facility] [place] [address] Vijay Saravia MD Lipid screening (Primary Dx); Chest pain, unspecified type; Cardiac arrhythmia due to premature depolarization, unspecified type; Supraventricular tachycardia, unspecified; Shortness of breath from Last 3 Months Family History Medical History Relation Name Comments Heart disease Father Lung cancer Mother Relation Name Status Comments Father Mother Social History Tobacco Use Types Packs/Day Years Used Date Smoking Tobacco: Every Day Cigarettes Tobacco Cessation:Ready to Q uit: Not Asked; Counseling Given: Not Answered Sex and Gender Information Value Date Recorded Sex Assigned at Not on file Legal Sex Male 12:00 PM CDT Gender Identity Not on file Sexual Orientation Not on file Obstetrics History Last Filed Vital Signs Vital Sign Reading Time Taken Comments Blood Pressure 152/90 05/11/2025 11:10 AM CDT Pulse 101 05/11/2025 11:10 AM CDT Temperature - - Respiratory Rate 18 03/19/2025 10:05 AM CDT Oxygen Saturation 96% 05/11/2025 11:10 AM CDT Inhaled Oxygen Concentration - - Weight 156 kg (343 lb 14.4 oz) 05/11/2025 11:10 AM CDT Height 188 cm (6' 2) 05/11/2025 11:10 AM CDT Body Mass Index 44.15 05/11/2025 11:10 AM CDT Plan of Treatment Health Maintenance Due Date Last Done Comments Colon Cancer Screening-Colonoscopy 1980 Depression Screening 1979 Hepatitis C Screening 1979 Hepatitis B Screening 1997 Regular Well Visit/Exam 18-64 1997 Pneumococcal vaccine <65 (1 of 2 - PCV) 1998 DTaP/Tdap/Td Vaccine (1 - Tdap) 04/20/2004 4 HPV Vaccines (1 - 3-dose SCDM series) 2006 Covid-19 Vaccine (3 - season) 2024, 08/10/2021 Influenza Vaccine (#1) 2025 08/10/2021 Procedures Procedure Name Priority Date/Time Associated Diagnosis Comments NM MPI SPECT (REST AND/OR STRESS) MULTIPLE STUDIES Schedule Routine, Read Routine (OP Routine) 03/26/2025 8:39 AM CDT Chest pain, unspecified type Shortness of breath POCT LIPID PANEL Routine 03/19/2025 10:16 AM CDT Lipid screening ELECTROCARDIOGRAM REPORT Routine 03/19/2025 10:09 AM CDT Supraventricular tachycardia, unspecified from Last 3 Months Results * NM MPI SPECT (Rest and/or Stress) Multiple Studies (03/26/2025 8:39 AM CDT) Anatomical Region Laterality Modality Body N/A Electrocardiogra phy 03/23/2025 1:02 PM CDT Narrative 03/23/2025 6:02 PM CDT [facility] Cardiology [address] [facility] [address] [address] [address] [facility] [address], [place] [address] [address] [place] [address] P:[phone] P:[phone] MPI Imaging Report Patient Name: WANDA ALICEA : 1980 Study Date: 03/23/2025 1:02:00 PM Gender: M [facility] Location: [facility] Provider: VIJAY SARAVIA Height(Cm): 188 BSA: Weight(Kg): 156.5 Heart Rate: 149 BMI: 44.28 Order Provider: VIJAY SARAVIA PHYSICIAN: Primary Care Physician: Dr. Hendrickson. [facility] Physician: Vijay Saravia M.D.,F.A.C.C. Stress Supervision: Darshan Li M.D. Stress Interpreting Physician: Darshan Li M.D. Image Interpreting Physician: Darshan Li M.D. PROCEDURES: Pharmacologic SPECT Report: Myocardial perfusion imaging with Tc99M Sestamibi SPECT at rest and stress post regadenoson (Lexiscan) infusion. INDICATIONS: Hypertension, Diabetes, Family Hx CAD, High Cholesterol, Smoker, R07.9 Chest pain, unspecified, and R06.02 Shortness of breath. FINDINGS: Procedural Findings: One day rest/stress was used. Tc99m Sestamibi injected IV at rest was 11.7 millicuries 34.9 millicuries of Tc99M Sestamibi injected IV during Lexiscan stress Lexiscan 0.4mg given IV over 10 seconds with low level exercise: 1.2 MPH Patient had no symptoms during stress test. Baseline heart rate was 71 BPM Maximum Heart Rate Achieved was: 115 BPM Baseline blood pressure was 138/88 mmHg Post Stress Blood Pressure was 140/86 mmHg Termination: Protocol complete. Resting ECG: Normal sinus rhythm, IVCD, RAD. Post ECG: Less than 1 mm horizontal inf/lat ST depression. Findings are borderline/equivocal for ischemia. Arrhythmia: No arrhythmias seen. Perfusion Findings: Abnormal perfusion imaging - see below. Technical quality of study is excellent. Left ventricle cavity size at rest is normal. Left ventricle cavity size with stress is unchanged. A TID of 0.91 was automatically calculated. defect 1: Size is medium. Severity is moderate. Location of defect is in the mid inferolateral segment, apical lateral segment and apex. Reversibility is full. Type of defect is ischemia. LV Function: Global left ventricular function is normal. Left ventricular ejection fraction is 61 %. CONCLUSIONS: Stress ECG shows less than 1 mm horizontal inf/lat ST depression. Findings are borderline/equivocal for ischemia. Global left ventricular function is normal. Left ventricular ejection fraction is 61 %. Size is medium. Severity is moderate. Location of defect is in the mid inferolateral segment, apical lateral segment and apex. Reversibility is full. Type of defect is ischemia. Myocardial perfusion imaging is abnormal. Ischemia present. Attenuation correction utilized for the interpretation of this study. Electronically Signed By: Immanuel Li MD 03/23/2025 5:04:44 PM CDT Electronically Signed By: Immanuel Li MD 03/23/2025 5:04:44 PM CDT Procedure Note Immanuel Li MD - 03/23/2025 [facility] Cardiology [address], [place] [address] [address] [facility] [address], [place] [address], [place] [address] P:[phone] P:[phone] MPI Imaging Report Patient Name: WANDA ALICEA : 1980 Study Date: 03/23/2025 1:02:00 PM Gender: M Tech: NANCY LE Location: [facility] Provider: VIJAY SARAVIA Height(Cm): 188 BSA: Weight(Kg): 156.5 Heart Rate: 149 BMI: 44.28 Order Provider: VIJAY SARAVIA PHYSICIAN: Primary Care Physician: Dr. Hendrickson. [facility] Physician: Vijay Saravia M.D.,F.A.C.C. Stress Supervision: Darshan Li M.D. Stress Interpreting Physician: Darshan Li M.D. Image Interpreting Physician: Darshan Li M.D. PROCEDURES: Pharmacologic SPECT Report: Myocardial perfusion imaging with Tc99M Sestamibi SPECT at rest and stresspost regadenoson (Lexiscan) infusion. INDICATIONS: Hypertension, Diabetes, Family Hx CAD, High Cholesterol, Smoker, R07.9Chest pain, unspecified, and R06.02 Shortness of breath. FINDINGS: Procedural Findings: One day rest/stress was used. Tc99m Sestamibi injected IV at rest was 11.7 millicuries 34.9 millicuries of Tc99M Sestamibi injected IV during Lexiscan stress Lexiscan 0.4mg given IV over 10 seconds with low level exercise: 1.2MPH Patient had no symptoms during stress test. Baseline heart rate was 71 BPM Maximum Heart Rate Achieved was: 115 BPM Baseline blood pressure was 138/88 mmHg Post Stress Blood Pressure was 140/86 mmHg Termination: Protocol complete. Resting ECG: Normal sinus rhythm, IVCD, RAD. Post ECG: Less than 1 mm horizontal inf/lat ST depression. Findings areborderline/equivocal for ischemia. Arrhythmia: No arrhythmias seen. Perfusion Findings: Abnormal perfusion imaging - see below. Technical quality of study isexcellent. Left ventricle cavity size at rest is normal. Left ventricle cavity size withstress is unchanged. A TID of 0.91 was automatically calculated. defect 1: Size is medium. Severity is moderate. Location of defect is in the midinferolateral segment, apical lateral segment and apex. Reversibility is full. Type ofdefect is ischemia. LV Function: Global left ventricular function is normal. Left ventricular ejectionfraction is 61 %. CONCLUSIONS: Stress ECG shows less than 1 mm horizontal inf/lat ST depression. Findingsare borderline/equivocal for ischemia. Global left ventricular function is normal. Left ventricular ejectionfraction is 61 %. Size is medium. Severity is moderate. Location of defect is in the midinferolateral segment, apical lateral segment and apex. Reversibility is full. Type ofdefect is ischemia. Myocardial perfusion imaging is abnormal. Ischemia present. Attenuation correction utilized for the interpretation of this study. Electronically Signed By: Immanuel Li MD 03/23/2025 5:04:44 PM CDT Electronically Signed By: Immanuel Li MD 03/23/2025 5:04:44 PM CDT Vijay Saravia MD [facility] PROCEDURES Final Result * (ABNORMAL) POCT lipid panel (03/19/2025 10:16 AM CDT) Cholesterol, POC 227 <200 MG/DL HDL, POC 22(A) >=40 mg/dL Triglycerides, POC 276(A) <=149 mg/dL LDL Cholesterol POC 150(A) <=129 mg/dL Chol/HDL Ratio, POC 10.3 NONE Non-HDL Cholesterol, POC 205 NONE mg/dL Cholesterol Total, POC 227(A) 30 - 199 mg/dL Capillary blood 03/19/2025 1 0:16 AM CDT Vijay Saravia MD POINT OF CARE TEST ORDER ALBERTO Final Result * Electrocardiogram Report (03/19/2025 10:09 AM CDT) Vijay Saravia MD ECG ORDERABLES Final Re sult from Last 3 Months Insurance [employer] Care Teams Student Financial Aid Manager Relationship Specialty Start Date End Date Samy Hendrickson MD [address] [address] PCP - General Family Medicine 02/22/25
--- NOTE | 2025-06-07 08:53 | P.SEDATION_ITS ---
Moderate Sedation Note-Pt Data Patient Data Allergies Allergy/AdvReac Type Severity Reaction Status Date / Time sertraline Allergy Unknown Unknown Verified 06/07/25 08:39 Home Medications ?Medication ?Instructions ?Recorded ?Confirmed ?Type amlodipine 10 mg tablet (Norvasc) 10 mg PO DAILY #90 t abs 02/28/25 06/07/25 Rx metoprolol succinate 25 mg 25 mg PO DAILY #90 tabs 05/0706/07/25 Rx tablet,extended release 24 hr aspirin 81 mg tablet,delayed 81 mg PO DAILY 06/07/25 0 06/07/25 History release (Adult Low Dose Aspirin) Sedation/Anesthesia: No previous sedation/anesthesia problems (including family history). [facility] Past Medical History Medical History Hepatic steatosis Splenomegaly Left sided abdominal pain Morbid obesity Tobacco abuse BMI 38.0-38.9,adult Family History Family History Father Hypertension Family history of alcoholism Cerebrovascular accident Family history of coronary artery disease Mother Family history of lung cancer Sibling No problems noted. Other Family history of malignant neoplasm Social History Social History Smoking packs per day: 2 Smoking cigarettes per day: 40.0 Years smoked: 22 Smoking pack-years: 44.00 Smoking status: Current every day smoker Tobacco type: cigarettes Alcohol intake: current Substance use: never Living arrangements: with family Spiritual care concerns: No Mod Sed Physical Exam Physical Exam Pre Procedural Exam: Normal: Lungs, Heart Size, Heart Rate and Heart Rhythm Hours since solid foods: 12 Hours since liquid intake: 12 Mallampati Classification: class III Internal Medicine - PN: Obj Da Vital Signs Vital Signs: Vital Signs - 24 hr 06/07/25 08:41 Temperature 36.4 C Pulse Rate 86 Respiratory Rate 14 Blood Pressure 153/93 H Pulse Oximetry 98 Oxygen Delivery Room Air ASA Classification/Sedation ASA Classification/Sedation ASA Class: III Emergent: No Risks: Risks, benefits and alternatives explained and patient/family accepted plan for sedation. Patient re-evaluated immediately prior to sedation.
--- NOTE | 2025-06-07 08:53 | WPDHPUPDATE1 ---
History and Physical Update Update Date/Time: 06/07/25 08:53 History and Physical has been reviewed, including an updated exam of the patient. There are NO changes in the patient's condition. Risks, benefits, and alternatives have been discussed and questions answered. Patient agrees to proceed with procedure.
[2025-06-07 09:13] LABS: Hematocrit 42.0 % (42.0-52.0); Hemoglobin 13.8 g/dL (14.0-18.0); Immature Granulocyte Percent A 0.3 % (0-0.5); Lymphocytes Absolute Auto 2.74 K/mm3 (0.9-3.2); Mean Corpuscular HGB Conc 32.9 g/dl (32-36); Mean Corpuscular Hemoglobin 29.3 pg (26-34); Mean Corpuscular Volume 89.2 fl (80-100); Nucleated Red Blood Cells Absolute Auto 0.000 K/mm3 (0.0-0.012); Nucleated Red Blood Cells Perc 0.0 % (0.0-0.2); Platelet Count Result 237 k/mm3 (150-375); Red Blood Count 4.71 M/mm3 (4.6-6.20); White Blood Count 10.6 K/mm3 (4.5-10.0)
[2025-06-07 09:35] LABS: Anion Gap 6 mmol/L (4-12); Blood Urea Nitrogen 13 mg/dL (9-20); Calcium 9.4 mg/dL (8.4-10.2); Carbon Dioxide 27 mmol/L (22-30); Chloride 106 mmol/L (98-107); Estimated CRCL calculation 167 ml/min; Estimated Glomerular Filt Rate > 60; Glucose 107 mg/dL (65-110); Potassium 3.7 mmol/L (3.4-5.0); Sodium 139 mmol/L (137-145)
--- NOTE | 2025-06-07 10:52 | P.PCNCC_ITS ---
Cardiac Cath Procedure Note Date of procedure:: 06/07/25 Performing physician:: CATHETERIZATION LABORATORY REPORT Procedure Date: 06/07/2025 Referring Physician: Dr. Saravia Anesthesia: Versed and Fentanyl were ordered and given in my presence at 1035, procedure ended at 1047. Supervision of nurse, Panfilo Neff monitored moderate sedation with 2mg Versed and 100mcg Fentanyl was provided for 12 minutes. Pre-op Diagnosis: Abnormal nuclear stress test Post-op Diagnosis: Abnormal nuclear stress test Procedure(s): Left heart catheterization with coronary angiography Access Site: Right radial artery Brief History and Clinical Indications: All risks, benefits and alternatives to left heart catheterization with or without percutaneous coronary intervention was discussed at length with the patient. Risk of complications including but not limited to bleeding, infection, arrhythmia, stroke, worsening kidney function, blood loss, groin hematoma, limb loss, emergency coronary artery bypass grafting, and even were discussed with the patient and all questions were answered. The patient understood and wished to proceed. Time out called, patient name, date of , medical record number, allergies, procedure performed, identify Automation Test Engineer, patient and staff member concurred with accurate data, procedure carried on. Findings: LEFT HEART CATHETERIZATION FINDINGS: 1. Left main: The left main coronary artery is long with diffuse 20% stenosis. 2. Left anterior descending: The LAD at its ostium has 90% stenosis. The mid LAD has 70% stenosis. The remainder of the vessel has luminal irregularities. The 1st diagonal branch is moderate caliber vessel with luminal irregularities. 3. Left circumflex: The left circumflex artery and the main marginal branches have diffuse 10-30% stenosis. 4. Right coronary artery: The RCA is a large dominant vessel. The proximal RCA has 40% stenosis. The mid RCA has 60% stenosis at the takeoff of a marginal branch. The remainder of the vessels and its branches have luminal irregularities. 5. Left ventricle: A. End-diastolic pressure 14 mmHg. B. LV gram deferred. C. No significant gradient across aortic valve on catheter pullback. 6. Opening AO pressure 110/70 and closing AO pressure 112/78 Description of Procedure: Informed consent signed and placed in the chart. Patient transferred to manager cath lab room. Prepped and draped in usual sterile fashion. 2% lidocaine injected subcutaneously in right wrist area. 22-gauge venipuncture catheter used to access the right radial artery with the Seldinger technique. 6-FR slender sheath placed in right radial artery. Nitroglycerin 200mcg, Verapamil 2.5mg, and Heparin 5000U was given intraarterial through the sheath. J wire advanced under fluoroscopy. 5F Ultra diagnostic catheter engaged Left Main Coronary Artery and Right Coronary Artery. Multiple orthogonal angiogram obtained and reviewed. The same 5F Ultra diagnostic catheter crossed aortic valve to obtain LVEDP, LV angiogram deferred. Hemostasis was achieved by application of TR band. Assessment: Two vessel CAD Post Operative Condition: Stable No significant blood loss Disposition: Home Plan: The patient will be monitored in the recovery area. Will refer for surgical revascularization given the location of the LAD lesion. The above findings were discussed with the referring physician. Continue aggressive medical therapy and risk factor modification. Aaron Em Interventional Cardiology
[2025-06-07] MEDS: SODIUM CHLORIDE 0.9% IV 1,000 ML 125 ML IV CONT (11:21)
== END 2025-06-07 14:51 | disposition home or self-care (01) ==
PROVIDERS: PCP Family Medicine; Visit Provider Internal Medicine
PROC: 4A023N7 Measurement of Cardiac Sampling and Pressure, Left Heart, Percutaneous Approach (ICD-10-PCS; CPT 93452; principal; 2025-06-07 10:00)
DX: I25.10 Atherosclerotic heart disease of native coronary artery without angina pectoris (principal); F17.210 Nicotine dependence, cigarettes, uncomplicated; Z79.82 Long term (current) use of aspirin; Z80.1 Family history of malignant neoplasm of trachea, bronchus and lung; Z82.49 Family history of ischemic heart disease and other diseases of the circulatory system
CPT/HCPCS: 36415; 80048; 85025; 93458; C1769; C1887; C1894; J1644; J2003; J2250; J2305; J3010; J7030; J7040

== ENCOUNTER 2025-08-22 09:07 | Emergency (ER) | payer BC, SELFPAY ==
--- NOTE | ~2025-08-22 | XR_ITS ---
Examination: XR chest 2V Clinical History: SOB, pt had double bypass surgery 07/16/25 Comparison: 12/19/2024 Technique: PA and Lateral Findings: Cardiomediastinal silhouette normal size and configuration. Lungs clear. No acute bony abnormality. IMPRESSION: 1. No acute cardiopulmonary findings. Reviewed, dictated and finalized at location R. HODRAMATIST
--- NOTE | ~2025-08-22 | CT_ITS ---
CTA CHEST CLINICAL HISTORY: d dimer, bypass surgery 07/16 . COMPARISON: Chest x-ray today CTA chest 12/19/2024 TECHNIQUE: Helical CTA performed from thoracic inlet to upper abdomen IV contrast information not listed in PACS Coronal, sagittal reformats. Multiplanar MIPS CT images acquired with automatic exposure control for dose reduction DLP: 1181 mGy-cm FINDINGS: Significant respiratory motion artifact. Pulmonary arteries: No PE identified. Thoracic Aorta: No dissection or aneurysm. Heart/pericardium: Moderate pericardial fluid. RV/LV ratio: Normal. Lungs/Pleura: Unchanged 7 mm pleural-based nodule posterior left lower lobe. Tracheobronchial tree: Patent. Nodes: No enlarged nodes. Large calcification left hilum. Bones: No acute bony abnormality. Soft tissues: Unremarkable. Visualized upper abdomen: Hepatomegaly, with steatosis, and nodular contour. Hepatic vein contrast reflux. IMPRESSION: 1. No PE. 2. Moderate pericardial fluid. 3. Suspect right heart dysfunction. 4. Unchanged 7 mm nodule left lung. Recommend repeat CT chest in 18 months. Reviewed, dictated and finalized at location [facility]
--- OUTSIDE RECORDS SUMMARY | 2025-08-22 09:10 | XMS_ITS | Clinical Summary ---
Author Organization [facility] [address] Address [address] [place] [address] Care Team Providers Care Manager Ems Name Role Phone Samy Hendrickson MD Primary Care Provider [phone] Vijay Saravia MD Unavailable [phone] Allergies Active Allergy Reactions Criticality Noted Date Comments Sertraline Unknown 07/02/2025 Medications atorvastatin (LIPITOR) 40 mg tabletIndicatio ns:coronary artery disease Take 1 tablet by mouth daily 06/07/20 25 Active omega 3-rvu-uro-fish oil 1,200 (144-216) mg capsuleIndicati ons:hypertrigly ceridemia Take 1 capsule by mouth daily Active multivitamin with minerals tabletIndicatio ns:Vitamin Deficiency Prevention Take 1 tablet by mouth daily Active aspirin 81 mg chewable tabletIndicatio ns:Myocardial Reinfarction Prevention Take 1 tablet by mouth daily Active clopidogreL (PLAVIX) 75 mg tabletIndicatio ns:Myocardial Reinfarction Prevention Take 1 tablet (75 mg total) by mouth daily 30 tablet 11 07/20/20 25 026 Active acetaminophen 500 mg capsuleIndicati ons:Pain Take 2 capsules (1,000 mg total) by mouth every 6 (six) hours 07/20/20 25 Active metoprolol tartrate (LOPRESSOR) 50 mg immediate release tabletIndicatio ns:hypertension Take 1 tablet (50 mg total) by mouth 2 (two) times a day 60 tablet 1 07/20/20 25 025 Active metFORMIN (GLUCOPHAGE) 500 mg tabletIndicatio ns:type 2 diabetes mellitus Take 1 tablet (500 mg total) by mouth 2 (two) times a day with meals 60 tablet 07/20/20 Active Additional Information Patient taking differently:500 mg oralDaily, 1 tablet daily, Indications: type 2 diabetes mellitus, Reported on 08/18/2025 semaglutide (OZEMPIC) 0.25 mg or 0.5 mg (2 mg/3 mL) pen injector injectionIndica tions:Weight Loss Management for Obese Patient (BMI >= 30) Inject 0.25 mg under the skin once a week. Indications: weight loss management for a person with obesity 08/13/20 Active Accu-Chek Guide test strips strip 07/26/20 Active Accu-Chek Guide Glucose Meter misc 07/26/20 Active Accu-Chek Softclix Lancets lancets 07/26/20 Active gabapentin (NEURONTIN) 300 mg capsuleIndicati ons:Postoperati ve Acute Pain Take 1 capsule (300 mg total) by mouth 3 (three) times a day 90 capsule 08/20/20 25 Active dextromethorpha n-guaiFENesin (ROBITUSSIN-DM) 2-20 mg/mL liquidIndicatio ns:Cough Take 10 mL by mouth every 4 (four) hours as needed for cough 07/20/20 25 Discontinu ed(Therapy completed) furosemide (LASIX) 40 mg tabletIndicatio ns:Edema Take 1 tablet (40 mg total) by mouth daily for 7 days 7 tablet 07/20/20 25 Discontinu ed(Therapy completed) gabapentin (NEURONTIN) 300 mg capsuleIndicati ons:Postoperati ve Acute Pain Take 1 capsule (300 mg total) by mouth 3 (three) times a day 90 capsule 07/20/20 25 025 Discontinu ed(Reorder ) hydrocortisone (ANUSOL-HC) 25 mg suppositoryIndi cations:Hemorrh oids Insert 1 suppository (25 mg total) into the rectum 2 (two) times a day for 6 days 12 suppository 07/20/20 25 025 Discontinu ed(Therapy completed) methocarbamoL (ROBAXIN) 750 mg tabletIndicatio ns:Muscle Spasm Take 1 tablet (750 mg total) by mouth 3 (three) times a day as needed for muscle spasms for up to 10 days 30 tablet 07/20/20 25 Discontinu ed(Reorder ) oxyCODONE (ROXICODONE) 5 mg immediate release tabletIndicatio ns:Pain Take 1 tablet (5 mg total) by mouth every 6 (six) hours as needed for pain for up to 5 days 20 tablet 07/20/20 25 Discontinu ed(Therapy completed) polyethylene glycol (MIRALAX) 17 gram packetIndicatio ns:constipation Take 1 packet (17 g total) by mouth daily 07/20/20 25 Discontinu ed(Therapy completed) potassium chloride ER (KLOR-CON) 20 mEq CR tablet Take 2 tablets (40 mEq total) by mouth daily for 7 days 14 tablet 07/20/20 25 Discontinu ed(Therapy completed) methocarbamoL (ROBAXIN) 750 mg tabletIndicatio ns:Muscle Spasm Take 1 tablet (750 mg total) by mouth 3 (three) times a day as needed for muscle spasms for up to 22 days 30 tablet 07/28/20 25 025 Additional Information Patient not taking.Reported on 08/18/2025 Active Problems Problem Noted Date Diagnosed Date Tobacco abuse 07/16/2025 Morbid obesity 07/16/2025 Hx of CABG 07/16/2025 Hypertension 07/16/2025 Hepatic steatosis 07/16/2025 Prediabetes 07/16/2025 Coronary artery disease 07/06/2025 Chest pain 03/19/2025 Shortness of breath 03/19/2025 Supraventricular tachycardia, unspecified 2024 Encounters Date Type Department Care Team Description 08/20/2025 8:30 AM BUTTER FAT TESTER Home Care Visit [facility] [address] [address] [address] [place] [address] Emily Simpson, PT PT HOME VISIT 08/20/2025 Orders Only [facility] Medicine Cardiology [address] [facility] [address] 8th [place] [address] [place] [address] Clary Bo NP 08/18/2025 1:30 PM BUTTER FAT TESTER Office Visit [facility] Medical Group Cardiology [address] [facility] [address] [address] Radha Mary NP Coronary artery disease involving coronary bypass graft of ho-chunk heart without angina pectoris (Primary Dx); Primary hypertension; Tobacco abuse; Mixed hyperlipidemia 08/17/2025 3:30 PM BUTTER FAT TESTER Home Care Visit [address] [address] [address] [place] [address] Emily Simpson, PT PT HOME VISIT 08/13/2025 8:30 AM CDT Home Care Visit [address] [address] [place] [address] Emily Simpson, PT PT HOME VISIT 08/11/2025 10:00 AM CDT Home Care Visit [address] [address] [place] [address] Emily Sipmson, PT PT HOME VISIT 08/10/2025 Telephone [facility] [address] [place] [address] Office [address], [address] [place] [address] Elen Oconnell CMA 08/06/2025 9:30 AM CDT Home Care Visit [address] [address] [address] [place] [address] Emily Simpson, PT PT HOME VISIT 08/05/2025 11:00 AM CDT Office Visit [facility] [address] [place] [address] Office [address], [address] [place] [address] Fabien Galeas, JARVIS Follow-up examination following surgery (Primary Dx); S/P CABG x 2 08/05/2025 10:48 AM CDT - 08/05/2025 11:59 PM CDT Hospital Encounter [facility] Cardiac Testing [address] [place] [address] Coronary artery disease involving ho-chunk coronary artery of ho-chunk heart with refractory angina pectoris Discharge Disposition: Discharge to home or self care 08/05/2025 10:14 AM CDT - 08/05/2025 11:59 PM CDT Hospital Encounter [facility] Diagnostic Imaging [address] [place] [address] Coronary artery disease involving ho-chunk coronary artery of ho-chunk heart with refractory angina pectoris Discharge Disposition: Discharge to home or self care 08/04/2025 10:00 AM CDT Home Care Visit [address] [place] [address] Sandro Blank, RN SN DISCIPLINE DISCHARGE 08/03/2025 10:30 AM CDT Home Care Visit [address] [place] [address] Emily Simpson, PT PT HOME VISIT 08/02/2025 9:30 AM CDT Home Care Visit [address] [place] [address] Sandro Blank, HECTOR SN HOME VISIT 07/30/2025 [facility] [address] [place] [address] [address], [address] [place] [address] Sade Lee MA 07/29/2025 12:30 PM CDT Home Care Visit [address] [place] [address] Sandro Blank RN SN HOME VISIT 07/29/2025 9:00 AM CDT Home Care Visit [address] [place] [address] Emily Simpson, PT PT HOME VISIT 07/29/2025 Telephone [facility] [address] [place] [address] Office [address], [address] [place] [address] Fabien Galeas, PRICE LISTER 07/29/2025 Telephone [facility] [address] [place] [address] Office [address], [address] [place] [phone] Fabien Galeas, PRICE LISTER 07/28/2025 Orders Only [facility] [address] Medical Office Building 2, [address] [place] [address] Fabien Galeas, JARVIS Acute post-operative pain (Primary Dx) 07/27/2025 Home Care Visit [address] [address] [place] [address] Sandro Blank, RN CASE COMMUNICATION 07/26/2025 12:30 PM CDT Home Care Visit [address] [address] [place] [address] Emily Simpson, PT PT INITIAL EVALUATION 07/26/2025 Home Care Visit [address] [address] [place] [address] Rosina Burnett, RN WOCN CONSULT 07/26/2025 Orders Only [facility] Medicine Cardiothoracic Surgery [address] 8[address] Room [address] [place] [phone] Fabien Galeas, JARVIS Coronary artery disease involving ho-chunk coronary artery of ho-chunk heart with refractory angina pectoris (Primary Dx) 07/25/2025 9:30 AM CDT Home Care Visit [address] [place] [address] Renetta Lee, HECTOR SN OASIS START OF CARE 07/25/2025 Plan of Care Documentation [address] [address] [place] [address] 07/21/2025 Telephone [facility] Home Care Services [address] [place] [address] [address] [place] [address] Thania Bo 07/21/2025 Telephone [facility] Home Care Services [address] [place] [address] [address] [place] [address] Thania Bo 07/16/2025 7:30 AM CDT - 07/16/2025 2:33 PM CDT Surgery [facility] OR [facility] [place] [address] Faby Medina MD MEDIAN STERNOTOMY, CORONARY ARTERY BYPASS GRAFT TIMES TWO, BILATERAL INTERNAL MAMMARY ARTERIES, LEFT ATRIAL APPENDAGE LIGATION [[id number] (CPT )] 07/16/2025 7:30 AM CDT Anesthesia Event [facility] OR [address] [place] [address] Immanuel Canales MD Taylor-White, Carlotta A., NP 07/16/2025 6:30 AM CDT Ancillary Procedure [facility] OR [address] [place] [address] 07/16/2025 5:26 AM CDT - 07/20/2025 5:05 PM CDT Hospital Encounter [address] [address] Faby Medina MD Saravanan, Pathanjali, MD Saturno Arias, MD Jose C Mishra, Saad Veronica MD Coronary artery disease involving ho-chunk coronary artery of ho-chunk heart, unspecified whether angina present (Primary Dx); Coronary artery disease involving coronary bypass graft of ho-chunk heart, unspecified whether angina present; Chest pain due to myocardial ischemia, unspecified ischemic chest pain type Discharge Disposition: Discharge to home or self care 07/15/2025 8:06 AM CDT - 07/15/2025 11:59 PM CDT Hospital Encounter [facility] [address] [place] [phone] Encounter for preprocedural cardiovascular examination Discharge Disposition: Discharge to home or self care 07/15/2025 8:00 AM CDT - 07/15/2025 11:59 PM CDT Hospital Encounter [facility] [address] [place] [phone] Encounter for other preprocedural examination Discharge Disposition: Discharge to home or self care 07/09/2025 Telephone [facility] [address] [facility] Medical Office Building 2, [address] [place] [address] Elen Oconnell CMA 07/08/2025 10:18 AM CDT - 07/08/2025 11:59 PM CDT Hospital Encounter [facility] ED Diagnostic Imaging [address] [place] [phone] Discharge Disposition: Discharge to home or self care 07/08/2025 10:00 AM CDT Pre-Admission Testing [facility] PreAdmission Testing [address] [place] [address] Pre-op testing (Primary Dx); 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; Pre-diabetes; Morbid obesity (HCC) 07/08/2025 8:00 AM CDT - 07/08/2025 11:59 PM CDT Hospital Encounter [facility] Cardiac Testing [address] [place] [address] Coronary artery disease, unspecified vessel or lesion type, unspecified whether angina present, unspecified whether ho-chunk or transplanted heart Discharge Disposition: Discharge to home or self care 07/07/2025 Orders Only [facility] PreAdmission Testing [address] [place] [address] Melania Lee RN Pre-op testing (Primary Dx) 07/06/2025 11:30 PM CDT Office Visit [facility] [address] [place] [address] Office [address], [address] [place] [address] Faby Medina MD Coronary artery disease involving ho-chunk coronary artery of ho-chunk heart with refractory angina pectoris (Primary Dx) 07/06/2025 Telephone [facility] [address] [place] [address] Office [address], [address] [place] [address] Elen Oconnell [facility] 07/06/2025 Telephone [facility] [address] [place] [address] Office [address], [address] [place] [address] Elen Oconnell CMA 07/06/2025 Orders Only [facility] [address] [place] [address] Office [address], [address] [place] [address] Faby Medina MD Encounter for preprocedural cardiovascular examination (Primary Dx); Encounter for other preprocedural examination 07/06/2025 Orders Only [facility] [address] Medical Office Building 2, [address] [place] [address] Fabien Galeas NP 07/05/2025 [facility]phone [facility] [address] [place] [address] Medical Office Building 2, [address] [place] [address] Elen Oconnell CMA 07/02/2025 Telephone [facility] [address] [place] [address] Medical Office Building 2, [address] [place] [address] Elen Oconnell CMA 07/02/2025 Orders Only [facility] [address] [place] [address] Medical Office [address] 2, [address] [place] [address] Faby Medina MD 07/02/2025 Orders Only [facility] [address] [place] [address] Medical Office Building 2, [address] [place] [phone] Faby Medina MD Coronary artery disease, unspecified vessel or lesion type, unspecified whether angina present, unspecified whether ho-chunk or transplanted heart (Primary Dx) 07/01/2025 Telephone [facility] [address] [place] [address] Medical Office [address] 2, [address] [place] [address] Elen Oconnell CMA 06/30/2025 9:53 AM CDT - 06/30/2025 11:59 PM CDT Hospital Encounter [facility] Radiology [facility] [address] [place] [address] Discharge Disposition: Discharge to home or self care 06/30/2025 Orders Only [facility] [address] [place] [address] Medical Office [address] 2, [address] [place] [address] Faby Medina MD 06/28/2025 Telephone [facility] Medicine Cardiothoracic Surgery [address] [facility] 8th Floor [address] [place] [address] Elen Oconnell CMA 06/09/2025 Orders Only [facility] Medical Group Cardiology [address] [place] [address] Aaron Em MD 06/08/2025 Telephone [facility] Medical Group Cardiology [address] [place] [address] Aarno Em MD 06/07/2025 Orders Only [facility] Health Information Management [address] [place] [address] Scanning, Provider from Last 3 Months Surgical History Surgery Date Site/Laterality Comments CARDIAC CATHETERIZATION 06/07/2025 LAPAROSCOPIC CHOLECYSTECTOMY 10/14/2013 - 10/13/2014 ORIF CLAVICLE FRACTURE 10/14/2010 - 10/13/2011 Left CORONARY ARTERY BYPASS GRAFT 07/16/2025 Chest/N/A Procedure: MEDIAN STERNOTOMY, CORONARY ARTERY BYPASS GRAFT TIMES TWO, BILATERAL INTERNAL MAMMARY ARTERIES, LEFT ATRIAL APPENDAGE LIGATION; Surgeon: Faby Medina MD; Location: [facility]; Service: Cardiothoracic; Laterality: N/A; Medical devices from this surgery are in the Medical Devices section. Medical History Medical History Date Comments Hepatic steatosis Splenomegaly Morbid obesity (HCC) Tobacco abuse Hypertension Pneumonia Pre-diabetes Dyspnea on exertion Palpitations Pulmonary nodule Supraventricular tachycardia Sleep apnea Abnormal cardiovascular stress test Family History Medical History Relation Name Comments Alcohol abuse Father Coronary artery disease Father Heart disease Father Hypertension Father Stroke Father Lung cancer Mother Relation Name Status Comments Father Mother Social History Tobacco Use Types Packs/Day Years Used Date Smoking Tobacco: Every Day Cigarettes 2 22.9 Started: 2002 Tobacco Cessation:Ready to Q uit: Not Asked; Counseling Given: Not Answered Alcohol Use Standard Drinks/Week Comments Never 0 (1 standard drink = 0.6 oz pur e alcohol) OASIS D0700: Social Isolation Answer Da te Recorded Frequency of experiencing loneliness or isolatio n Never 07/25/2025 OASIS A1250: Transportation Answer Date Recorded Lack of Transportation (Medical) No 07/25/2025 Lack of Transportation (Non-Medical) No 07/25/2025 Patient Unable or Declines to Respond No 07/25/2025 OASIS B1300: Health Literacy Answer Yahir e Recorded Frequency of needing help to read materials from doctor or pharmacy Never 07/25/2025 Social Connection and Isolation Panel Answer Date Recorded In a typical week, how many times do you talk on the phone with family, friends, or neighbors? Three times a week 07/19/2025 How often do you get togethe r with friends or relatives? Three times a week 07/19/2025 How often do you attend chur ch or buddhism services? Never 07/19/2025 Do you belong to any clubs o r organizations such as hinduism groups, unions, fraternal or athletic groups, or school groups? No 07/19/2025 How often do you attend meet ings of the clubs or organizations you belong to? Never 07/19/2025 Are you , , di vorced, , never , or living with a partner? Never 07/19/2025 AUDIT-C Answer Date Recorded Q1: How often do you have a drink containing alcohol? Never 07/08/2025 Q2: How many drinks containi ng alcohol do you have on a typical day when you are drinking? Patient does not drink Q3: How often do you have si x or more drinks on one occasion? Never 07/08/2025 Overall Financial Resource Strain (CARDIA) Answe r Date Recorded How hard is it for you to pa y for the very basics like food, housing, medical care, and heating? Not very hard 07/19/2025 Hunger Vital Sign Answer Date Recorded Within the past 12 months, y ou worried that your food would run out before you got the money to buy more. Never true 07/19/20 25 Within the past 12 months, t he food you bought just didn't last and you didn't have money to get more. Never true 07/19/2025 PRAPARE - Transportation Answer Date Re corded In the past 12 months, has l ack of transportation kept you from medical appointments or from getting medications? No 03/2025 In the past 12 months, has l ack of transportation kept you from meetings, work, or from getting things needed for daily living? No 07/19/2025 Housing Stability Vital Sign Answer Yahir e Recorded In the last 12 months, was t here a time when you were not able to pay the mortgage or rent on time? No 07/19/2025 In the past 12 months, how m any times have you moved where you were living? 0 07/19/2025 At any time in the [facility] 12 [facility], were you homeless or living in a senior care (including now)? No 07/19/2025 [facility] Utilities Answer Date Recorded In the past 12 months has th [employer] electric, gas, oil, or water company threatened to shut off services in your home? No 07/19/2025 Personal Safety Answer Date Recorded Have you ever been in or are you currently in a harmful physical or emotional relationship or is someone making you feel afraid or unsafe? Denies 07/16/2025 Sex and Gender Information Value Date Recorded Sex Assigned at Not on file Legal Sex Male 12:00 PM CDT Gender Identity Not on file Sexual Orientation Not on file Last Filed Vital Signs Vital Sign Reading Time Taken Comments Blood Pressure 128/70 08/20/2025 8:44 AM BUTTER FAT TESTER Pulse 63 08/20/2025 8:44 AM BUTTER FAT TESTER Temperature 36.4 C (97.5 F) 08/20/2025 8:44 AM BUTTER FAT TESTER Respiratory Rate 18 08/20/2025 8:44 AM BUTTER FAT TESTER Oxygen Saturation 95% 08/20/2025 8:44 AM BUTTER FAT TESTER Inhaled Oxygen Concentration - - Weight 150.1 kg (331 lb) 08/18/2025 1:28 PM BUTTER FAT TESTER Height 188 cm (6' 2) 08/18/2025 1:28 PM BUTTER FAT TESTER Body Mass Index 42.5 08/18/2025 1:28 PM BUTTER FAT TESTER Plan of Treatment Health Maintenance Due Date Last Done Comments Colon Cancer Screening-Colonoscopy 1979 Depression Screening 1979 Hepatitis C Screening 1979 Hepatitis B Screening 1997 Regular Well Visit/Exam 18-64 1997 Pneumococcal vaccine <65 (1 of 2 - PCV) 1998 DTaP/Tdap/Td Vaccine (1 - Tdap) 04/20/2004 04/19/2004 Covid-19 Vaccine (3 - 2024-2 6 season) 2025 08/31/2021, 08/10/2021 Influenza Vaccine (#1) 2025 08/10/2021 HPV Vaccines Aged Out No longer eligi ble based on patient's age to complete this topic Medical Devices Implanted Type Area Administrative Staff Supervisor Device Identifier Shelf Expiration Date Model / Serial / Lot Atricure Device Left Atrial Appendage Malleable Shaft 180 Degree Rotation White Atriclip Flex V 35mm [id number] [id number] - [id number] Implanted:Qty: 1 on 07/16/2025 by Faby Medina MD at [facility] N/A: Heart Atricure [id number] 04/13/2028 [id number] / / [id number] Abyrx Putty Bone Cardio [address] Resorbable Hemostatic Syn [id number] - [id number] Implanted:Qty: 1 on 07/16/2025 by Faby Medina MD at [facility] N/A: Sternum Abyrx [id number] 01/12/2028 [id number] 1CT / [employer] Device Closure Fibertape Sternal Cerclage Cutting Needle [id number] - [id number] Implanted:Qty: 3 on 07/16/2025 by Faby Medina MD at [facility] N/A: Sternum [employer] [id number] 05/13/2030 [id number] / / [id number] Procedures Procedure Name Priority Date/Time Associated Diagnosis Comments ECG 12-LEAD Routine 08/05/2025 10:54 AM CDT Coronary artery disease involving ho-chunk coronary artery of ho-chunk heart with refractory angina pectoris XR CHEST PA LATERAL 2 VIEWS Schedule Routine, Read Routine (OP Routine) 08/05/2025 10:23 AM CDT Coronary artery disease involving ho-chunk coronary artery of ho-chunk heart with refractory angina pectoris INFECTION PREVENTION THAIS AURIS PCR, SURVEILLANCE Routine 07/20/2025 4:25 PM CDT POCT GLUCOSE DEVICE Routine 07/20/2025 11:50 AM CDT XR CHEST PA LATERAL 2 VIEWS IP Routine 07/20/2025 9:29 AM CDT POCT GLUCOSE DEVICE Routine 07/20/2025 8 :12 AM CDT EGFR Routine 07/20/2025 2:35 AM CDT PHOSPHORUS Routine 07/20/2025 2:35 AM CDT MAGNESIUM Routine 07/20/2025 2:35 AM CDT BASIC METABOLIC PANEL Routine 07/20/2025 2:35 AM CDT CBC WITHOUT DIFFERENTIAL Routine 07/20/2025 2:35 AM CDT POCT GLUCOSE DEVICE Routine 07/19/2025 8 :01 PM CDT POCT GLUCOSE DEVICE Routine 07/19/2025 4 :19 PM CDT PHOSPHORUS Routine 07/19/2025 2:14 PM CDT POCT GLUCOSE DEVICE Routine 07/19/2025 11:25 AM CDT POCT GLUCOSE DEVICE Routine 07/19/2025 7 :33 AM CDT XR CHEST 1 VIEW IP Routine 07/19/2025 5:43 AM CDT POCT GLUCOSE DEVICE Routine 07/19/2025 5 :18 AM CDT EGFR Routine 07/19/2025 2:49 AM CDT DIFFERENTIAL AUTO Routine 07/19/2025 2:4 9 AM CDT COMPREHENSIVE METABOLIC PANEL Routine 07/19/2025 2:49 AM CDT CBC WITH AUTO DIFFERENTIAL Routine 07/19/2025 2:49 AM CDT PHOSPHORUS Routine 07/19/2025 2:49 AM CDT MAGNESIUM Routine 07/19/2025 2:49 AM CDT POCT GLUCOSE DEVICE Routine 07/19/2025 12:14 AM CDT POCT GLUCOSE DEVICE Routine 07/18/2025 9 :03 PM CDT POCT GLUCOSE DEVICE Routine 07/18/2025 4 :28 PM CDT POCT GLUCOSE DEVICE Routine 07/18/2025 11:15 AM CDT POCT GLUCOSE DEVICE Routine 07/18/2025 8 :30 AM CDT POC BLOOD GAS AND CHEMISTRIES, ARTERIAL Routine 07/18/2025 8:27 AM CDT CRITICAL CARE Routine 07/18/2025 7:30 AM CDT Coronary artery disease involving ho-chunk coronary artery of ho-chunk heart, unspecified whether angina present XR CHEST 1 VIEW IP Routine 07/18/2025 5:03 AM CDT EGFR Routine 07/18/2025 2:35 AM CDT PHOSPHORUS Routine 07/18/2025 2:35 AM CDT MAGNESIUM Routine 07/18/2025 2:35 AM CDT BASIC METABOLIC PANEL Routine 07/18/2025 2:35 AM CDT CBC WITHOUT DIFFERENTIAL Routine 07/18/2025 2:35 AM CDT CRITICAL CARE Routine 07/18/2025 1:59 AM CDT Coronary artery disease involving ho-chunk coronary artery of ho-chunk heart, unspecified whether angina present POCT GLUCOSE DEVICE Routine 07/17/2025 8 :26 PM CDT POCT GLUCOSE DEVICE Routine 07/17/2025 5 :22 PM CDT POCT GLUCOSE DEVICE Routine 07/17/2025 11:30 AM CDT LIPID PANEL STAT 07/17/2025 11:26 AM CDT POCT GLUCOSE DEVICE Routine 07/17/2025 10:01 AM CDT POCT GLUCOSE DEVICE Routine 07/17/2025 7 :53 AM CDT CRITICAL CARE Routine 07/17/2025 7:30 AM CDT Coronary artery disease involving ho-chunk coronary artery of ho-chunk heart, unspecified whether angina present POCT GLUCOSE DEVICE Routine 07/17/2025 6 :58 AM CDT POCT GLUCOSE DEVICE Routine 07/17/2025 5 :54 AM CDT XR CHEST 1 VIEW IP Routine 07/17/2025 5:42 AM CDT POC BLOOD GAS AND CHEMISTRIES, ARTERIAL Routine 07/17/2025 5:08 AM CDT EGFR Routine 07/17/2025 4:17 AM CDT PHOSPHORUS Routine 07/17/2025 4:17 AM CDT MAGNESIUM Routine 07/17/2025 4:17 AM CDT BASIC METABOLIC PANEL Routine 07/17/2025 4:17 AM CDT CBC WITHOUT DIFFERENTIAL Routine 07/17/2025 4:17 AM CDT POCT GLUCOSE DEVICE Routine 07/17/2025 3 :53 AM CDT POCT GLUCOSE DEVICE Routine 07/17/2025 3 :06 AM CDT POCT GLUCOSE DEVICE Routine 07/17/2025 2 :12 AM CDT POCT GLUCOSE DEVICE Routine 07/17/2025 1 :14 AM CDT POCT GLUCOSE DEVICE Routine 07/16/2025 11:53 PM CDT POCT GLUCOSE DEVICE Routine 07/16/2025 11:00 PM CDT POCT GLUCOSE DEVICE Routine 07/16/2025 10:08 PM CDT POCT GLUCOSE DEVICE Routine 07/16/2025 9 :19 PM CDT POCT GLUCOSE DEVICE Routine 07/16/2025 8 :25 PM CDT CRITICAL CARE Routine 07/16/2025 7:50 PM CDT Coronary artery disease involving ho-chunk coronary artery of ho-chunk heart, unspecified whether angina present POCT GLUCOSE DEVICE Routine 07/16/2025 7 :24 PM CDT POC BLOOD GAS AND CHEMISTRIES, ARTERIAL Routine 07/16/2025 5:55 PM CDT POCT GLUCOSE DEVICE Routine 07/16/2025 5 :51 PM CDT POCT GLUCOSE DEVICE Routine 07/16/2025 4 :47 PM CDT XR KUB ED Urgent/IP Urgent 07/16/2025 4:19 PM CDT POCT GLUCOSE DEVICE Routine 07/16/2025 3 :41 PM CDT ECG 12-LEAD STAT 07/16/2025 2:51 PM CDT POC BLOOD GAS AND CHEMISTRIES, ARTERIAL Routine 07/16/2025 2:40 PM CDT POCT GLUCOSE DEVICE Routine 07/16/2025 2 :33 PM CDT XR CHEST 1 VIEW ED Urgent/IP Urgent 07/16/2025 2:27 PM CDT POC BLOOD GAS AND CHEMISTRIES, ARTERIAL Routine 07/16/2025 1:52 PM CDT POCT GLUCOSE DEVICE Routine 07/16/2025 1 :41 PM CDT EGFR STAT 07/16/2025 1:37 PM CDT APTT STAT 07/16/2025 1:37 PM CDT PROTIME-INR STAT 07/16/2025 1:37 PM CDT CBC WITHOUT DIFFERENTIAL STAT 07/16/2025 1:37 PM CDT MAGNESIUM STAT 07/16/2025 1:37 PM CDT BASIC METABOLIC PANEL STAT 07/16/2025 1:37 PM CDT PHOSPHORUS Routine 07/16/2025 1:37 PM CDT POC BLOOD GAS AND CHEMISTRIES, ARTERIAL Routine 07/16/2025 12:58 PM CDT CRITICAL CARE Routine 07/16/2025 12:45 PM CDT POC BLOOD GAS AND CHEMISTRIES, ARTERIAL Routine 07/16/2025 12:16 PM CDT POCT ACTIVATED CLOTTING TIME, HIGH RANGE Routine 07/16/2025 12:13 PM CDT POC BLOOD GAS AND CHEMISTRIES, ARTERIAL Routine 07/16/2025 11:41 AM CDT POCT ACTIVATED CLOTTING TIME, HIGH RANGE Routine 07/16/2025 11:39 AM CDT POC BLOOD GAS AND CHEMISTRIES, ARTERIAL Routine 07/16/2025 11:14 AM CDT POCT ACTIVATED CLOTTING TIME, HIGH RANGE Routine 07/16/2025 11:11 AM CDT POC BLOOD GAS AND CHEMISTRIES, ARTERIAL Routine 07/16/2025 10:52 AM CDT POCT ACTIVATED CLOTTING TIME, HIGH RANGE Routine 07/16/2025 10:50 AM CDT POC BLOOD GAS AND CHEMISTRIES, ARTERIAL Routine 07/16/2025 10:15 AM CDT POCT ACTIVATED CLOTTING TIME, HIGH RANGE Routine 07/16/2025 10:12 AM CDT OR AN PROCEDURE PLACEHOLDER Routine 07/16/2025 10:05 AM CDT OR AN CENTRAL LINE DOUBLE LUMEN Routine 07/16/2025 10:05 AM CDT OR AN PROCEDURE PLACEHOLDER Routine 07/16/2025 10:03 AM CDT POC BLOOD GAS AND CHEMISTRIES, ARTERIAL Routine 07/16/2025 9:53 AM CDT OR AN PROCEDURE PLACEHOLDER Routine 07/16/2025 9:14 AM CDT OR AN ELECTIVE ENDOTRACHEAL AIRWAY Routine 07/16/2025 9:14 AM CDT POC BLOOD GAS AND CHEMISTRIES, ARTERIAL Routine 07/16/2025 8:53 AM CDT POCT ACTIVATED CLOTTING TIME, HIGH RANGE Routine 07/16/2025 8:51 AM CDT PREPARE RBC STAT 07/16/2025 7:44 AM CDT OR CABG W/ARTERIAL GRAFT TWO ARTERIAL GRAFTS 07/16/2025 7:30 AM CDT 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 PREPARE RBC Timed 07/16/2025 6:36 AM CDT RAJESH DURING CASE NO INTERP W/O CONTRAST [id number] Routine 07/16/2025 6:25 AM CDT B ABO / RH CONFIRMATION TESTING Routine 07/16/2025 6:06 AM CDT US VEIN MAPPING DUPLEX LOWER EXTREMITY BILATERAL Schedule Routine, Read Routine (OP Routine) 07/15/2025 8:51 AM CDT Encounter for preprocedural cardiovascular examination US CAROTIDS DUPLEX BILATERAL Schedule Routine, Read Routine (OP Routine) 07/15/2025 8:51 AM CDT Encounter for other preprocedural examination URINALYSIS AND REFLEX TO MICROSCOPIC AND CULTURE Routine 07/08/2025 11:16 AM CDT Pre-op testing XR CHEST PA LATERAL 2 VIEWS Schedule Routine, Read Routine (OP Routine) 07/08/2025 10:28 AM CDT Pre-op testing CROSSMATCH Routine 07/08/2025 10:16 AM CDT 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 Pre-op testing Pre-diabetes Morbid obesity (HCC) EGFR Routine 07/08/2025 10:16 AM CDT 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 Pre-op testing Pre-diabetes Morbid obesity (HCC) DIFFERENTIAL AUTO Routine 07/08/2025 10:16 AM CDT 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 Pre-op testing Pre-diabetes Morbid obesity (HCC) ANTIBODY SCREEN Routine 07/08/2025 10:16 AM CDT 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 Pre-op testing Pre-diabetes Morbid obesity (HCC) ABO/RH Routine 07/08/2025 10:16 AM CDT 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 Pre-op testing Pre-diabetes Morbid obesity (HCC) CBC WITH AUTO DIFFERENTIAL Routine 07/08/2025 10:16 AM CDT 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 Pre-op testing Pre-diabetes Morbid obesity (HCC) TYPE AND SCREEN 14 DAY Routine 07/08/2025 10:16 AM CDT 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 Pre-op testing Pre-diabetes Morbid obesity (HCC) APTT Routine 07/08/2025 10:16 AM CDT 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 Pre-op testing Pre-diabetes Morbid obesity (HCC) PROTIME-INR Routine 07/08/2025 10:16 AM CDT 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 Pre-op testing Pre-diabetes Morbid obesity (HCC) HEMOGLOBIN A1C Routine 07/08/2025 10:16 AM CDT 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 Pre-op testing Pre-diabetes Morbid obesity (HCC) COMPREHENSIVE METABOLIC PANEL Routine 07/08/2025 10:16 AM CDT 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 Pre-op testing Pre-diabetes Morbid obesity (HCC) MRSA ONLY (STAPHYLOCOCCUS AUREUS) PCR Routine 07/08/2025 10:16 AM CDT Pre-op testing ECG 12-LEAD Routine 07/08/2025 10:03 AM CDT 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 Pre-op testing Pre-diabetes Morbid obesity (HCC) TRANSTHORACIC ECHO (TTE) COMPLETE W DOPPLER/CF WO CONTRAST Routine 07/08/2025 9:00 AM CDT Coronary artery disease, unspecified vessel or lesion type, unspecified whether angina present, unspecified whether ho-chunk or transplanted heart IR OUTSIDE REFERENCE Routine 06/30/2025 9:53 AM CDT CARDIOLOGY DOCUMENT SCAN Routine 06/07/2025 9:42 AM CDT CARDIOLOGY DOCUMENT SCAN 06/07/2025 SCAN - LABS 06/07/2025 from Last 3 Months Results * ECG 12 lead (08/05/2025 10:54 AM CDT) Ventricular Rate EKG/Min 65 BPM [facility] Atrial Rate 65 BPM [facility] OR-Interval (MSEC) 158 ms [facility] QRS-Interval (MSEC) 100 ms [facility] QT-Interval (MSEC) 396 ms [facility] QTc 411 ms [facility] P [place] 29 degrees [facility] R [place] 90 degrees [facility] T [place] 111 degrees [facility] Diagnosis Normal sinus rhythm Rightward axis Incomplete right bundle branch block Septal infarct , age undetermined T wave abnormality, consider lateral ischemia Abnormal ECG When compared with ECG of 16-JUL-2025 14:51, Sinus rhythm has replaced Junctional rhythm Nonspecific T wave abnormality now evident in Inferior leads T wave inversion now evident in Lateral leads QT has shortened Confirmed by JANELLE COBB M.D. ([id number]) on 08/05/2025 11:11:33 AM [facility] 08/05/2025 10:5 4 AM CDT 08/05/2025 11:11 AM CDT Fabien Galeas PRICE LISTER ECG ORDERABLES Final Resu lt [facility] * XR Chest Pa Lateral 2 Views (08/05/2025 10:23 AM CDT) Anatomical Region Laterality Modality Body, Chest N/A Computed Radiogr aphy 08/05/2025 12:1 8 PM CDT Impressions 08/05/2025 12:18 PM CDT 1. Grossly stable mild patchy bibasilar airspace opacities, which is likely related to compressive subsegmental atelectasis/scarring and less likely airspace disease. 2. Small bilateral pleural effusions, mildly increased in comparison to the prior study. Electronically signed by: Rikki Tolbert D.O. Narrative 08/05/2025 12:18 PM CDT STUDY DESCRIPTION: XR CHEST PA LATERAL 2 VIEWS ORDERING HEALTHCARE PROVIDER: FABIEN GALEAS CLINICAL INDICATIONS: Status Post Heart Surgery. COMPARISON: 07/20/2025 TECHNIQUE: 2 radiographic views of the chest. FINDINGS: There is mild cardiomegaly. Postsurgical changes of midline sternotomy wires are noted. The pulmonary vasculature mediastinum are grossly stable. There is no definite evidence of a pneumothorax. There are small bilateral pleural effusions, mildly increased in comparison to the prior study. There are grossly stable mild patchy airspace opacities. The osseous structures are acutely grossly stable. Procedure Note Rikki Tolbert, DO - 08/05/2025 STUDY DESCRIPTION: XR CHEST PA LATERAL 2 VIEWS ORDERING HEALTHCARE PROVIDER: FABIEN GALEAS CLINICAL INDICATIONS: Status Post Heart Surgery. COMPARISON: 07/20/2025 TECHNIQUE: 2 radiographic views of the chest. FINDINGS: There is mild cardiomegaly. Postsurgical changes of midline sternotomy wires are noted. The pulmonary vasculature mediastinum are grossly stable. There is no definite evidence of a pneumothorax. There are small bilateral pleural effusions, mildly increased in comparison to the prior study. There are grossly stable mild patchy airspace opacities. The osseous structures are acutely grossly stable. IMPRESSION: 1. Grossly stable mild patchy bibasilar airspace opacities, which is likely related to compressive subsegmental atelectasis/scarring and less likely airspace disease. 2. Small bilateral pleural effusions, mildly increased in comparison to the prior study. Electronically signed by: Rikki Tolbert D.O. Fabien Galeas PRICE LISTER IMG XR PROCEDURES Final Re sult * Infection Prevention Thais auris PCR, surveillance Axilla/Groin (07/20/2025 4:25 PM CDT) Thais auris DNA Not Detected Not Detected [facility] Comment: Interpretive Data Testing performed by [facility] Disease [facility] using the Jennifer charlie 6800 Thais auris assay. This assay detects DNA from Thais auris using Real-Time PCR. This assay is laboratory developed and is not cleared by the [place] Food and Drug Administration. The performance characteristics have been verified by the [facility] Disease [facility]. Testing performed by: [facility], [address], [place]., [address] Axilla/Groin 07/20/2025 4:25 PM CDT 07/20/2025 7:36 PM CDT Narrative DELIA - 07/21/2025 1:53 PM CDT Order placed by OPA due to ring surveillance. us Instant Order Generic Provider LAB MICROBIOLOGY - GENERAL ORDERABLES Final Result Performing Organization Address [facility]/ZIP Co de Phone Number DELIA [address] [place] [address] [facility] * POCT glucose (07/20/2025 11:50 AM CDT) [facility] Glucose, POC 107 70 - 199 mg/dL Blood 07/20/2025 11:5 0 AM CDT 07/20/2025 11:50 AM CDT Saad Woodall MD LAB POCT ORDERABLES - DEV ICE Final Result Performing Organization Address [facility] Co de Phone Number [address]RA[address] [place] [address] * XR Chest Pa Lateral 2 Views (07/20/2025 9:29 AM CDT) Anatomical Region Laterality Modality Body, Chest N/A Computed Radiogr aphy 07/20/2025 9:50 AM CDT Narrative 07/20/2025 9:54 AM CDT EXAM DESCRIPTION: XR CHEST PA LATERAL 2 VIEWS REASON FOR STUDY: Pleural effusion Follow up pleural effusion, post CABG TECHNIQUE: 2 radiographic view(s) of the chest. COMPARISON: 07/19/2025 FINDINGS: LUNGS: Small bilateral pleural effusions are not significantly changed. No evidence of pneumothorax. No focal consolidation. HEART/MEDIASTINUM: Cardiac silhouette normal in size. Mediastinal and hilar contours appear normal. An atrial appendage occlusion device is present. LINES/TUBES: None. BONES: No acute osseous abnormality. Median sternotomy wires. Internal fixation of the left clavicle. IMPRESSION: Stable small bilateral pleural effusions. THIS IS AN ELECTRONICALLY VERIFIED FINAL REPORT 07/20/2025 9:54 AM - Electronically signed by Moises JACOBS T: Report ID: [id number] Reading Location: [id number] Procedure Note Mosies Kasper MD - 07/20/2025 EXAM DESCRIPTION: XR CHEST PA LATERAL 2 VIEWS REASON FOR STUDY: Pleural effusion Follow up pleural effusion, post CABG TECHNIQUE: 2 radiographic view(s) of the chest. COMPARISON: 07/19/2025 FINDINGS: LUNGS: Small bilateral pleural effusions are not significantly changed. No evidence of pneumothorax. No focal consolidation. HEART/MEDIASTINUM: Cardiac silhouette normal in size. Mediastinal andhilar contours appear normal. An atrial appendage occlusion device is present. LINES/TUBES: None. BONES: No acute osseous abnormality. Median sternotomy wires. Internal fixation of the left clavicle. IMPRESSION: Stable small bilateral pleural effusions. THIS IS AN ELECTRONICALLY VERIFIED FINAL REPORT 07/20/2025 9:54 AM - Electronically signed by Moises JACOBS T: Report ID: [id number] Reading Location: [place] [address] Sudha SEGUNDO IMG XR PROCEDURES Final Result * POCT glucose (07/20/2025 8:12 AM CDT) Glucose, POC 108 70 - 199 mg/dL Blood 07/20/2025 8:12 AM CDT 07/20/2025 8:12 AM CDT Saad Woodall MD LAB POCT ORDERABLES - DEV ICE Final Result [facility] [address] [facility] Department of Laboratories [place], [place] [id number] * eGFR (07/20/2025 2:35 AM CDT) Pathologist [facility] eGFR >90 >=60 mL/min/1. 73 m2 Comment: Interpretive Data Reference Interval Normal >/= 90 mL/min/1.73m2 Mildly decreased* 60 - 89 mL/min/1.73m2 Mildly to moderately decreased 45 - 59 mL/min/1.73m2 Moderately to severely decreased 30 - 44 mL/min/1.73m2 Severely decreased 15 - 29 mL/min/1.73m2 Kidney Failure < 15 mL/min/1.73m2 *Relative to young adult level Estimated glomerular filtration rate is determined by the 2020 CKD-EPI equation recommended by the National Kidney Foundation (A Unifying Approach to GFR Estimation: Recommendations of the NKF-ASK Task Force on Reassessing the Inclusion of Race in Diagnosing Kidney Disease, JASN 2020). The CKD-EPI equation should not be used for patients with unstable renal function and has not been validated in children and those over 70. Current interpretive data was last reviewed 2021. Blood 07/20/2025 2:35 AM CDT 07/20/2025 3:16 AM CDT us Stacie Zamora NP LAB BLOOD ORDERABLES [facility] Result [facility] [address] [facility] [place] [address] * (ABNORMAL) CBC without differential (07/20/2025 2:35 AM CDT) [facility] WBC 13.86(H) 3.80 - 9.90 K/cumm Hgb 11.3(L) 13.0 - 17.5 g/dL [facility] Hct 34.5(L) 38.9 - 50.3 % [facility] Plt 232 150 - 400 K/cumm [facility] MPV 11.0 9.1 - 12.3 fL [facility] RBC 3.89(L) 4.30 - 5.80 M/cumm [facility] MCV 88.7 81.3 - 96.4 fL [facility] MCH 29.0 27.1 - 33.3 pg [facility] MCHC 32.8 32.3 - 35.7 g/dL [facility] RDW CV 14.1 11.1 - 14.9 % [facility] RDW SD 45.0 35.7 - 48.1 fL [facility] NRBC abs 0.00 0.00 - 0.01 K/cumm [facility] Blood 07/20/2025 2:35 AM CDT 07/20/2025 3:17 AM CDT Stacie Zamora PRICE LISTER LAB BLOOD ORDERABLES Fi nal Result Performing Organization Address City/[facility] Co de Phone Number [address] [place] [address] * Phosphorus (07/20/2025 2:35 AM CDT) Pathologist [facility] Phosphorus, pl 2.5 2.3 - 4.5 mg/dL Blood 07/20/2025 2:35 AM CDT 07/20/2025 3:16 AM CDT Stacie Zamora PRICE LISTER LAB BLOOD ORDERABLES Fi nal Result Performing Organization Address [facility] de Phone Number [address] [place] [address] * Magnesium (07/20/2025 2:35 AM CDT) Pathologist [facility] Magnesium 2.0 1.4 - 2.5 mg/dL Blood 07/20/2025 2:35 AM CDT 07/20/2025 3:16 AM CDT Stacie Zamora PRICE LISTER LAB BLOOD ORDERABLES Fi nal Result Performing Organization Address City/[facility] Co de Phone Number [address] [place] [address] * (ABNORMAL) Basic metabolic panel (07/20/2025 2:35 AM CDT) Pathologist [facility] Sodium 138 135 - 145 mmol/L Potassium, pl 3.3 3.3 - 4.9 mmol/L [facility] Chloride 103 97 - 110 mmol/L [facility] CO2 25 22 - 32 mmol/L [facility] Anion gap 10 2 - 15 mmol/L [facility] BUN 17 6 - 25 mg/dL [facility] Creatinine 0.59(L) 0.80 - 1.30 mg/dL [facility] Glucose 108 70 - 199 mg/dL [facility] Comment: Interpretive Data Fasting glucose >/= 126 mg/dl is diagnostic for diabetes. Fasting is defined as no caloric intake for at least 8 hours. Fasting glucose between 100 mg/dl to 125 mg/dl is diagnostic of prediabetes. In a patient with classic symptoms of hyperglycemia or hyperglycemic crisis, a random glucose >/= 200 mg/dl is diagnostic for diabetes. In the absence of unequivocal hyperglycemia, results should be confirmed by repeat testing. The classification and Diagnosis of Diabetes Diabetes Care 2021; 46: S19-S40. Current interpretive data was last revised 2022. Calcium 9.0 8.5 - 10.3 mg/dL [facility] Blood 07/20/2025 2:35 AM CDT 07/20/2025 3:16 AM CDT Stacie Zamora PRICE LISTER LAB BLOOD ORDERABLES Fi nal Result Performing Organization Address [facility] Co de Phone Number [address] [place] [address] * POCT glucose (07/19/2025 8:01 PM CDT) [facility] Glucose, POC 101 70 - 199 mg/dL Blood 07/19/2025 8:01 PM CDT 07/19/2025 8:01 PM CDT Mike Schneider MD LAB POCT ORDERABLES - DEVICE Final Result Performing Organization Address City/[facility] Co de Phone Number [address] [place] [address] * POCT glucose (07/19/2025 4:19 PM CDT) Glucose, POC 99 70 - 199 mg/dL Glucose comment 1 RN/ Notified DELIA Blood 07/19/2025 4:19 PM CDT 07/19/2025 4:19 PM CDT Mike Schneider MD LAB POCT ORDERABLES - DEVICE Final Result [address] [place] [address] * (ABNORMAL) Phosphorus (07/19/2025 2:14 PM CDT) Phosphorus, pl 2.2(L) 2.3 - 4.5 mg/dL Blood 07/19/2025 2:14 PM CDT 07/19/2025 2:28 PM CDT Mike Schneider MD LAB BLOOD ORDERABLES Final Result Performing Organization Address City/[facility] Co de Phone Number [address] [place] [address] * POCT glucose (07/19/2025 11:25 AM CDT) Glucose, POC 111 70 - 199 mg/dL Glucose comment 1 RN/ Notified DELIA Blood 07/19/2025 11:2 5 AM CDT 07/19/2025 11:25 AM CDT Mike Schneider MD LAB POCT ORDERABLES - DEVICE Final Result Performing Organization Address City/[facility] Co de Phone Number [address] [place] [address] * POCT glucose (07/19/2025 7:33 AM CDT) Glucose, POC 124 70 - 199 mg/dL Glucose comment 1 RN/ Notified DELIA Blood 07/19/2025 7:33 AM CDT 07/19/2025 7:33 AM CDT us Mike Schneider MD LAB POCT ORDERABLES - DEVICE Final Result DELIA ALLEN [address] [facility] [place] [address] * XR Chest 1 View - in AM (07/19/2025 5:43 AM CDT) Anatomical Region Laterality Modality Body, Chest N/A Computed Radiogr aphy 07/19/2025 6:17 AM CDT Narrative 07/19/2025 6:20 AM CDT EXAM DESCRIPTION: XR CHEST 1 VIEW REASON FOR STUDY: Pleural effusion Post op CABG x 2 07/16/25; daily TECHNIQUE: AP and lateral radiographic view(s) of the chest. COMPARISON: 07/18/2025 and 07/17/2025 FINDINGS: LUNGS: Interstitial prominence is noted. Small bilateral pleural effusions, stable. Associated opacities in the lung bases which could reflect atelectasis or mild airspace disease. No pneumothorax HEART/MEDIASTINUM: Cardiac silhouette is mildly enlarged likely magnified by technique. Pulmonary vascularity is borderline enlarged. LINES/TUBES: Interval removal of right internal jugular central venous catheter. There is fixation hardware again demonstrated at the left clavicle. BONES: No acute osseous abnormality. IMPRESSION: Small bilateral pleural effusions, similar to prior examination with adjacent opacity favored to represent atelectasis as opposed to pneumonia. Correlate clinically. Interstitial prominence, similar. THIS IS AN ELECTRONICALLY VERIFIED FINAL REPORT 07/19/2025 6:20 AM - Electronically signed by Luna Rosenthal M.D. TW T: Report ID: [id number] Reading Location: [id number] Procedure Note Luna Rosenthal MD - 07/19/2025 EXAM DESCRIPTION: XR CHEST 1 VIEW REASON FOR STUDY: Pleural effusion Post op CABG x 2 07/16/25; daily TECHNIQUE: AP and lateral radiographic view(s) of the chest. COMPARISON: 07/18/2025 and 07/17/2025 FINDINGS: LUNGS: Interstitial prominence is noted. Small bilateralpleural effusions, stable. Associated opacities in the lung bases which couldreflect atelectasis or mild airspace disease. No pneumothorax HEART/MEDIASTINUM: Cardiac silhouette is mildly enlarged likely magnifiedby technique. Pulmonary vascularity is borderline enlarged. LINES/TUBES: Interval removal of right internal jugular central venous catheter. There is fixation hardware again demonstrated at the leftclavicle. BONES: No acute osseous abnormality. IMPRESSION: Small bilateral pleural effusions, similar to priorexamination with adjacent opacity favored to represent atelectasis as opposed to pneumonia. Correlate clinically. Interstitial prominence, similar. THIS IS AN ELECTRONICALLY VERIFIED FINAL REPORT 07/19/2025 6:20 AM - Electronically signed by Luna Rosenthal M.D. TW T: Report ID: [id number] Reading Location: [place] [address] Stacie Zamora PRICE LISTER IMG XR PROCEDURES Final Result * POCT glucose (07/19/2025 5:18 AM CDT) Pathologist [facility] Glucose, POC 122 70 - 199 mg/dL Glucose comment 1 RN/MD Notified DELIA ALLEN Blood 07/19/2025 5:18 AM CDT 07/19/2025 5:18 AM CDT Dorian Magdaleno MD LAB POCT ORDERABLES - DE VICE Final Result DELIA ALLEN [address] [facility] [place] [address] * eGFR (07/19/2025 2:49 AM CDT) Pathologist [facility] eGFR >90 >=60 mL/min/1. 73 m2 Comment: Interpretive Data Reference Interval Normal >/= 90 mL/min/1.73m2 Mildly decreased* 60 - 89 mL/min/1.73m2 Mildly to moderately decreased 45 - 59 mL/min/1.73m2 Moderately to severely decreased 30 - 44 mL/min/1.73m2 Severely decreased 15 - 29 mL/min/1.73m2 Kidney Failure < 15 mL/min/1.73m2 *Relative to young adult level Estimated glomerular filtration rate is determined by the 2020 CKD-EPI equation recommended by the National Kidney Foundation (A Unifying Approach to GFR Estimation: Recommendations of the NKF-ASK Task Force on Reassessing the Inclusion of Race in Diagnosing Kidney Disease, JASN 2020). The CKD-EPI equation should not be used for patients with unstable renal function and has not been validated in children and those over 70. Current interpretive data was last reviewed 2021. Blood 07/19/2025 2:49 AM CDT 07/19/2025 4:51 AM CDT Dorian Magdaleno MD LAB BLOOD ORDERABLES Fin al Result [facility] [address] [facility] [place] [address] * (ABNORMAL) Differential, auto (07/19/2025 2:49 AM CDT) Pathologist [facility] Neutrophil abs 11.65(H) 1.50 - 6.50 K/cumm Imm gran abs 0.04 0.00 - 0.10 K/cumm [facility] Lymphocyte abs 1.74 0.80 - 3.30 K/cumm [facility] Monocyte abs 1.09(H) 0.20 - 0.80 K/cumm [facility] Eosinophil abs 0.03 0.00 - 0.50 K/cumm [facility] Basophil abs 0.05 0.00 - 0.10 K/cumm [facility] Neutrophil pct 79.8 % [facility] Comment: Interpretive Data Percent cell count reference ranges are not reported, since discordance with absolute values may lead to misinterpretation of CBC data. Current Interpretive Data was last revised on 2018. Imm gran pct 0.3 % [facility] Comment: Interpretive Data Percent cell count reference ranges are not reported, since discordance with absolute values may lead to misinterpretation of CBC data. Current Interpretive Data was last revised on 2018. Lymphocyte pct 11.9 % [facility] Comment: Interpretive Data Percent cell count reference ranges are not reported, since discordance with absolute values may lead to misinterpretation of CBC data. Current Interpretive Data was last revised on 2018. Monocyte pct 7.5 % [facility] Comment: Interpretive Data Percent cell count reference ranges are not reported, since discordance with absolute values may lead to misinterpretation of CBC data. Current Interpretive Data was last revised on 2018. Eosinophil pct 0.2 % [facility] Comment: Interpretive Data Percent cell count reference ranges are not reported, since discordance with absolute values may lead to misinterpretation of CBC data. Current Interpretive Data was last revised on 2018. Basophil pct 0.3 % [facility] Comment: Interpretive Data Percent cell count reference ranges are not reported, since discordance with absolute values may lead to misinterpretation of CBC data. Current Interpretive Data was last revised on 2018. Blood 07/19/2025 2:49 AM CDT 07/19/2025 4:51 AM CDT us Dorian Magdaleno MD LAB BLOOD ORDERABLES Fin al Result [facility] [address] [facility] [place] [address] * (ABNORMAL) CBC with auto differential (07/19/2025 2:49 AM CDT) WBC 14.60(H) 3.80 - 9.90 K/cumm Hgb 11.4(L) 13.0 - 17.5 g/dL [facility] Hct 34.7(L) 38.9 - 50.3 % [facility] Plt 210 150 - 400 K/cumm [facility] MPV 10.9 9.1 - 12.3 fL [facility] RBC 3.92(L) 4.30 - 5.80 M/cumm [facility] MCV 88.5 81.3 - 96.4 fL [facility] MCH 29.1 27.1 - 33.3 pg [facility] MCHC 32.9 32.3 - 35.7 g/dL [facility] RDW CV 13.9 11.1 - 14.9 % [facility] RDW SD 44.6 35.7 - 48.1 fL [facility] NRBC abs 0.00 0.00 - 0.01 K/cumm [facility] Blood 07/19/2025 2:49 AM CDT 07/19/2025 4:51 AM CDT Dorian Magdaleno MD LAB BLOOD ORDERABLES Fin al Result Performing Organization Address [facility] Co de Phone Number [address] [place] [address] * (ABNORMAL) Phosphorus (07/19/2025 2:49 AM CDT) [facility] Phosphorus, pl 1.4(C) 2.3 - 4.5 mg/dL Comment:Critical Result call ed to and read back by [email or web address], DATE: 2025-07-19 05:21:39 BY: [email or web address] Blood 07/19/2025 2:49 AM CDT 07/19/2025 4:51 AM CDT Stacie Zamora NP LAB BLOOD ORDERABLES Fi nal Result Performing Organization Address [facility] de Phone Number [address] [address] * Magnesium (07/19/2025 2:49 AM CDT) [facility] Magnesium 1.8 1.4 - 2.5 mg/dL Blood 07/19/2025 2:49 AM CDT 07/19/2025 4:51 AM CDT Stacie Zamora PRICE LISTER LAB BLOOD ORDERABLES Fi nal Result Performing Organization Address [facility] Co de Phone Number [address] [place] [address] * (ABNORMAL) Comprehensive metabolic panel (07/19/2025 2:49 AM CDT) Sodium 138 135 - 145 mmol/L Potassium, pl 3.5 3.3 - 4.9 mmol/L [facility] Chloride 103 97 - 110 mmol/L [facility] CO2 25 22 - 32 mmol/L [facility] Anion gap 10 2 - 15 mmol/L [facility] BUN 14 6 - 25 mg/dL [facility] Creatinine 0.55(L) 0.80 - 1.30 mg/dL [facility] Glucose 117 70 - 199 mg/dL [facility] Comment: Interpretive Data Fasting glucose >/= 126 mg/dl is diagnostic for diabetes. Fasting is defined as no caloric intake for at least 8 hours. Fasting glucose between 100 mg/dl to 125 mg/dl is diagnostic of prediabetes. In a patient with classic symptoms of hyperglycemia or hyperglycemic crisis, a random glucose >/= 200 mg/dl is diagnostic for diabetes. In the absence of unequivocal hyperglycemia, results should be confirmed by repeat testing. The classification and Diagnosis of Diabetes Diabetes Care 2021; 46: S19-S40. Current interpretive data was last revised 2022. Calcium 8.9 8.5 - 10.3 mg/dL [facility] Bilirubin, total 1.1 0.1 - 1.2 mg/dL [facility] Protein, pl 6.5 6.5 - 8.5 g/dL [facility] Albumin 3.5 3.5 - 5.0 g/dL [facility] Alk phos 104 40 - 130 Units/L [facility] ALT 68(H) 7 - 55 Units/L [facility] AST 78(H) 10 - 50 Units/L [facility] Blood 07/19/2025 2:49 AM CDT 07/19/2025 4:51 AM CDT us Dorian Magdaleno MD LAB BLOOD ORDERABLES Fin al Result [facility]IA [address] [facility] Department [place] [address] * POCT glucose (07/19/2025 12:14 AM CDT) Pathologist [facility] Glucose, POC 113 70 - 199 mg/dL Glucose comment 1 RN/ Notified DELIA Blood 07/19/2025 12:1 4 AM CDT 07/19/2025 12:14 AM CDT Dorian Magdaleno MD LAB POCT ORDERABLES - DE VICE Final Result Performing Organization Address [facility] Co de Phone Number [address] [place] [address] * POCT glucose (07/18/2025 9:03 PM CDT) Glucose, POC 112 70 - 199 mg/dL Glucose comment 1 RN/ Notified DELIA Blood 07/18/2025 9:03 PM CDT 07/18/2025 9:03 PM CDT Dorian Magdaleno MD LAB POCT ORDERABLES - DE VICE Final Result Performing Organization Address [facility] Co de Phone Number [address] [place] [address] * POCT glucose (07/18/2025 4:28 PM CDT) Glucose, POC 100 70 - 199 mg/dL Glucose comment 1 RN/ Notified DELIA Blood 07/18/2025 4:28 PM CDT 07/18/2025 4:28 PM CDT Dorian Magdaleno MD LAB POCT ORDERABLES - DE VICE Final Result Performing Organization Address [facility] Co de Phone Number [address] [place] [address] * POCT glucose (07/18/2025 11:15 AM CDT) Glucose, POC 124 70 - 199 mg/dL Blood 07/18/2025 11:1 5 AM CDT 07/18/2025 11:15 AM CDT Dorian Magdaleno MD LAB POCT ORDERABLES - DE VICE Final Result Performing Organization Address [facility] Co de Phone Number DELIA [address] [place] [address] * POCT glucose (07/18/2025 8:30 AM CDT) Glucose, POC 122 70 - 199 mg/dL Blood 07/18/2025 8:30 AM CDT 07/18/2025 8:30 AM CDT Result [facility] Faby Medina MD LAB POCT ORDERABLES - DEVIC E Final Result Performing Organization Address [facility] Phone Number DELIA [address] [place] [address] * (ABNORMAL) POC Blood Gas and Chemistries, Arterial - (07/18/2025 8:27 AM CDT) pH, art POC 7.46(H) 7.35 - 7.45 pCO2, art POC 39 35 - 45 mmHg [facility] pO2, art POC 61(L) 83 - 108 mmHg [facility] HCO3, art (Calc) POC 28 20 - 30 mmol/L [facility] Base excess, art POC 4 mmol/L [facility] Comment: Interpretive Data No reference range established. Current interpretive data was last revised 2020. O2 Sat, art (Calc) POC 94 94 - 98 % [facility] Oxy Hgb, art POC 91.8 90.0 - 95.0 % [facility] Met Hgb, art POC 0.5 0.0 - 1.9 % [facility] Carboxy Hgb, art POC 1.9 0.0 - 2.9 % [facility] Hemoglobin, art POC 12.5(L) 13.0 - 17.5 g/dL [facility] Blood 07/18/2025 8:27 AM CDT 07/18/2025 8:27 AM CDT Result [facility] Faby Medina MD LAB POCT ORDERABLES - DEVIC E Final Result DELIA [address] [facility] [place] [address] * Critical Care (07/18/2025 7:30 AM CDT) Narrative Link, Natalia Carrolln, DO - 07/18/2025 7:30 AM CDT Link, Natalia Lashawn, DO 07/18/2025 11:00 AM Critical Care Performed by: Stcaie Zamora NP Authorized by: Stacie Zamora NP CRITICAL CARE: Team: JASWANT Shift: AM Level of Billing: Subsequent Hospital Visit Level 3 My time spent with this patient was 60 minutes: Critical Provider Statement: I have seen and examined the patient on this day of service. I have reviewed and confirmed the history, physical exam, laboratory, and radiographic data as documented in the ICU note. I have reviewed and discussed my treatment plan with the patient's team and other medical/hearing consultant staff. This time was in addition to and separate from care provided by other practitioners on this day of service. Stacie Zamora PRICE LISTER IN CLINIC/BEDSIDE ORDER ALBERTO Final Result * XR Chest 1 View - in AM (07/18/2025 5:03 AM CDT) Anatomical Region Laterality Modality Body, Chest N/A Computed Radiogr aphy 07/18/2025 5:19 AM CDT Narrative 07/18/2025 5:22 AM CDT EXAM DESCRIPTION: XR CHEST 1 VIEW REASON FOR STUDY: Pleural effusion CABG times 2 with GARVEY-LAD, MAMTA-mid RCA on AUG 07 TECHNIQUE: Single radiographic view of the chest. COMPARISON: Chest x-ray of July 17, 2025. FINDINGS: LUNGS/PLEURA: Lungs are hypoventilatory with mild bibasilar atelectasis and a small right pleural effusion, new from previous. HEART/MEDIASTINUM: Cardiac silhouette is within normal limits for AP hypoventilatory view. Remaining mediastinal silhouettes are unremarkable. HARDWARE/LINES/TUBES: EKG leads overlie the film. There are sequelae of sternotomy. Left atrial appendage occlusion device is seen in place. Right internal jugular central venous catheter is present with its tip in the expected location of the SVC . Endotracheal tube and NG tube have been removed in the interval since previous study. BONES: No acute findings. A malleable plate and multiple screws seen fixating the left clavicle. IMPRESSION: Hypoventilatory chest. Central line in appropriate position. THIS IS AN ELECTRONICALLY VERIFIED FINAL REPORT 07/18/2025 5:22 AM - Electronically signed by Rehana Candelaria M.D. SN T: Report ID: [id number] Reading Location: [id number] Procedure Note Rehana Candelaria MD - 07/18/2025 EXAM DESCRIPTION: XR CHEST 1 VIEW REASON FOR STUDY: Pleural effusion CABG times 2 with GARVEY-LAD, MAMTA-mid RCA on AUG 07 TECHNIQUE: Single radiographic view of the chest. COMPARISON: Chest x-ray of July 17, 2025. FINDINGS: LUNGS/PLEURA: Lungs are hypoventilatory with mild bibasilar atelectasis and a small right pleural effusion, new from previous. HEART/MEDIASTINUM: Cardiac silhouette is within normal limits for AP hypoventilatory view. Remaining mediastinal silhouettes areunremarkable. HARDWARE/LINES/TUBES: EKG leads overlie the film. There are sequelae of sternotomy. Left atrial appendage occlusion device is seen in place.Right internal jugular central venous catheter is present with its tip in the expected location of the SVC . Endotracheal tube and NG tube have been removed in the interval since previous study. BONES: No acute findings. A malleable plate and multiple screws seen fixating the left clavicle. IMPRESSION: Hypoventilatory chest. Central line in appropriateposition. THIS IS AN ELECTRONICALLY VERIFIED FINAL REPORT 07/18/2025 5:22 AM - Electronically signed by Rehana Candelaria M.D. SN T: Report ID: [id number] Reading Location: [id number] Stacie Zamora NP IMG XR PROCEDURES Final Result * eGFR (07/18/2025 2:35 AM CDT) Pathologist [facility] eGFR >90 >=60 mL/min/1. 73 m2 Comment: Interpretive Data Reference Interval Normal >/= 90 mL/min/1.73m2 Mildly decreased* 60 - 89 mL/min/1.73m2 Mildly to moderately decreased 45 - 59 mL/min/1.73m2 Moderately to severely decreased 30 - 44 mL/min/1.73m2 Severely decreased 15 - 29 mL/min/1.73m2 Kidney Failure < 15 mL/min/1.73m2 *Relative to young adult level Estimated glomerular filtration rate is determined by the 2020 CKD-EPI equation recommended by the National Kidney Foundation (A Unifying Approach to GFR Estimation: Recommendations of the NKF-ASK Task Force on Reassessing the Inclusion of Race in Diagnosing Kidney Disease, JASN 2020). The CKD-EPI equation should not be used for patients with unstable renal function and has not been validated in children and those over 70. Current interpretive data was last reviewed 2021. Blood 07/18/2025 2:35 AM CDT 07/18/2025 3:51 AM CDT Sudha SEGUNDO LAB BLOOD ORDERABLES Fi nal Result [facility] [address] [facility] [place] [address] * (ABNORMAL) CBC without differential (07/18/2025 2:35 AM CDT) [facility] WBC 16.72(H) 3.80 - 9.90 K/cumm Hgb 11.9(L) 13.0 - 17.5 g/dL [facility] Hct 38.0(L) 38.9 - 50.3 % [facility] Plt 211 150 - 400 K/cumm [facility] MPV 11.1 9.1 - 12.3 fL [facility] RBC 4.15(L) 4.30 - 5.80 M/cumm [facility] MCV 91.6 81.3 - 96.4 fL [facility] MCH 28.7 27.1 - 33.3 pg [facility] MCHC 31.3(L) 32.3 - 35.7 g/dL [facility] RDW CV 13.9 11.1 - 14.9 % [facility] RDW SD 46.4 35.7 - 48.1 fL [facility] NRBC abs 0.00 0.00 - 0.01 K/cumm [facility] Blood 07/18/2025 2:35 AM CDT 07/18/2025 3:51 AM CDT Stacie Zamora PRICE LISTER LAB BLOOD ORDERABLES Fi nal Result [address] [place] [address] * (ABNORMAL) Phosphorus (07/18/2025 2:35 AM CDT) Pathologist [facility] Phosphorus, pl 2.0(L) 2.3 - 4.5 mg/dL Blood 07/18/2025 2:35 AM CDT 07/18/2025 3:51 AM CDT Stacie Zamora PRICE LISTER LAB BLOOD ORDERABLES Fi nal Result Performing Organization Address [facility] Co de Phone Number [address] [place] [address] * Magnesium (07/18/2025 2:35 AM CDT) Pathologist [facility] Magnesium 2.2 1.4 - 2.5 mg/dL Blood 07/18/2025 2:35 AM CDT 07/18/2025 3:51 AM CDT Stacie Zamora PRICE LISTER LAB BLOOD ORDERABLES Fi nal Result [address] [place] [address] * (ABNORMAL) Basic metabolic panel (07/18/2025 2:35 AM CDT) Sodium 139 135 - 145 mmol/L Potassium, pl 4.6 3.3 - 4.9 mmol/L [facility] Chloride 102 97 - 110 mmol/L [facility] CO2 29 22 - 32 mmol/L [facility] Anion gap 8 2 - 15 mmol/L [facility] BUN 14 6 - 25 mg/dL [facility] Creatinine 0.75(L) 0.80 - 1.30 mg/dL [facility] Glucose 152 70 - 199 mg/dL [facility] Comment: Interpretive Data Fasting glucose >/= 126 mg/dl is diagnostic for diabetes. Fasting is defined as no caloric intake for at least 8 hours. Fasting glucose between 100 mg/dl to 125 mg/dl is diagnostic of prediabetes. In a patient with classic symptoms of hyperglycemia or hyperglycemic crisis, a random glucose >/= 200 mg/dl is diagnostic for diabetes. In the absence of unequivocal hyperglycemia, results should be confirmed by repeat testing. The classification and Diagnosis of Diabetes Diabetes Care 2021; 46: S19-S40. Current interpretive data was last revised 2022. Calcium 8.8 8.5 - 10.3 mg/dL [facility] Blood 07/18/2025 2:35 AM CDT 07/18/2025 3:51 AM CDT Stacie Zamora NP LAB BLOOD ORDERABLES Fi nal Result [facility] [address] [facility] [place] [address] * Critical Care (07/18/2025 1:59 AM CDT) Narrative Luis Arrington MD - 07/18/2025 1:59 AM CDT Luis Arrington MD 07/30/2025 9:24 AM Critical Care Performed by: Luis Arrington MD Authorized by: Luis Arrington MD CRITICAL CARE: Team: B Shift: PM Level of Billing: Subsequent Hospital Visit Level 3 My time spent with this patient was 25 minutes: Critical Provider Statement: I have seen and examined the patient on this day of service. I have reviewed and confirmed the history, physical exam, laboratory, and radiographic data as documented in the ICU note. I have reviewed and discussed my treatment plan with the patient's team and other medical/hearing consultant staff. This time was in addition to and separate from care provided by other practitioners on this day of service. Acute pain/acute postoperative pain CAD s/p CABG This time was spent by me doing the following: Acute pain control Incentive spirometry, pulmonary toilet I spent time reviewing and interpreting data from bedside monitors, laboratory results, and imaging Luis Arrington MD IN CLINIC/BEDSIDE ORDERABLES Edited Result - Final * POCT glucose (07/17/2025 8:26 PM CDT) Glucose, POC 132 70 - 199 mg/dL Blood 07/17/2025 8:26 PM CDT 07/17/2025 8:26 PM CDT Faby Medina MD LAB POCT ORDERABLES - DEVIC E Final Result Performing Organization Address [facility] Co de Phone Number [address] [address] * POCT glucose (07/17/2025 5:22 PM CDT) Glucose, POC 184 70 - 199 mg/dL Blood 07/17/2025 5:22 PM CDT 07/17/2025 5:22 PM CDT Faby Medina MD LAB POCT ORDERABLES - DEVIC E Final Result Performing Organization Address [facility] de Phone Number [address] [address] * POCT glucose (07/17/2025 11:30 AM CDT) Glucose, POC 132 70 - 199 mg/dL Blood 07/17/2025 11:3 0 AM CDT 07/17/2025 11:30 AM CDT us Faby Medina MD LAB POCT ORDERABLES - DEVIC E Final Result [facility] [address] [facility] [place] [address] * (ABNORMAL) Lipid panel (07/17/2025 11:26 AM CDT) Cholesterol 99 30 - 199 mg/dL Comment: Interpretive Data Ages < or = 19 years Acceptable: <170 mg/dL Borderline high: 170-199 mg/dL High: >or= 200 mg/dL Ages > or = 20 years Desirable: <200 mg/dL Borderline high: 200-239 mg/dL High: >or= 240 mg/dL Literature References: 1. Expert Panel on Integrated Guidelines for Cardiovascular Health and Risk Reduction in Children and Adolescents. Pediatrics 2011;128:S213 2. NCEP Expert Panel. Circulation 2004;110:227 Current Interpretive Data was last revised on 2018. Triglycerides 132 <=149 mg/dL [facility] Comment: Interpretive Data Ages < or = 9 years Acceptable: <75 mg/dL Borderline high: 75-99 mg/dL High: >or= 100 mg/dL Ages 10 to 20 years Acceptable: <90 mg/dL Borderline high: 90-129 mg/dL High: >or= 130 mg/dL Ages > or = 20 years Desirable: <150 mg/dL Borderline high: 150-199 mg/dL High: 200-499 mg/dL Very high: >or= 499 mg/dL Literature References: 1. Expert Panel on Integrated Guidelines for Cardiovascular Health and Risk Reduction in Children and Adolescents. Pediatrics 2011;128:S213 2. NCEP Expert Panel. Circulation 2004;110:227 Current Interpretive Data was last revised on 2018. HDL 22(L) >=40 mg/dL [facility] Comment: Interpretive Data Ages < or = 19 years Acceptable: >45 mg/dL Borderline low: 40-45 mg/dL Low: <40 mg/dL Ages > or = 20 years Desirable: >or= 60 mg/dL Low: <40 mg/dL Literature References: 1. Expert Panel on Integrated Guidelines for Cardiovascular Health and Risk Reduction in Children and Adolescents. Pediatrics 2011;128:S213 2. NCEP Expert Panel. Circulation 2004;110:227 Current Interpretive Data was last revised on 2018. LDL, calculated 53 <=129 mg/dL [facility] Comment: Interpretive Data Ages < or = 19 years Acceptable: <110 mg/dL Borderline high: 110-129 mg/dL High: >or= 130 mg/dL Ages > or = 20 years Optimal: <100 mg/dL Near optimal: 100-129 mg/dL Borderline high: 130-159 mg/dL High: >160 mg/dL Calculated using the Brandin LDL-C estimating equation. This equation was implemented on 2024. Prior to this date LDL-C was estimated using the Friedewald equation. Literature References: 1. Expert Panel on Integrated Guidelines for Cardiovascular Health and Risk Reduction in Children and Adolescents. Pediatrics 2011;128:S213 2. NCEP Expert Panel. Circulation 2004;110:227 3. Brandin Gale et al. MICHELLE Cardiol. 2019February 11;5(5):540-548. doi: [email or web address] Current Interpretive Data was last revised on 2024. Non-HDL Cholesterol 77 mg/dL [facility] Comment: Interpretive Data Ages < or = 19 years Acceptable: <120 mg/dL Borderline high: 120-144 mg/dL High: >145 mg/dL Ages > or = 20 years When triglycerides are >200 mg/dL, Non-HDL cholesterol is a secondary target of therapy with treatment goals that are 30 mg/dL greater than the LDL cholesterol target. Literature References: 1. Expert Panel on Integrated Guidelines for Cardiovascular Health and Risk Reduction in Children and Adolescents. Pediatrics 2011;128:S213 2. NCEP Expert Panel. Circulation 2004;110:227 Current Interpretive Data was last revised on 2018. Chol/HDL ratio 4 [facility] Blood 07/17/2025 11:2 6 AM CDT 07/17/2025 11:30 AM CDT us Corby LEI LAB BLOOD ORDERABLES Final Resul t [facility] [address] [facility] [place] [address] * POCT glucose (07/17/2025 10:01 AM CDT) Glucose, POC 118 70 - 199 mg/dL Blood 07/17/2025 10:0 1 AM CDT 07/17/2025 10:01 AM CDT Faby Medina MD LAB POCT ORDERABLES - DEVIC E Final Result Performing Organization Address [facility] de Phone Number DELIA [address] [place] [address] * POCT glucose (07/17/2025 7:53 AM CDT) Glucose, POC 123 70 - 199 mg/dL Blood 07/17/2025 7:53 AM CDT 07/17/2025 7:53 AM CDT Faby Medina MD LAB POCT ORDERABLES - DEVIC E Final Result Performing Organization Address [facility] Phone Number [address] [address] * Critical Care (07/17/2025 7:30 AM CDT) Natalia Long, - 07/17/2025 7:30 AM CDT Natalia Peterson DO 07/17/2025 8:45 PM Critical Care Performed by: Stacie Zamora NP Authorized by: Stacie Zamora NP CRITICAL CARE: Team: Tamara Shift: AM Level of Billing: Critical Care My time spent with this patient was 60 minutes: Critical Provider Statement: I have seen and examined the patient on this day of service. I have reviewed and confirmed the history, physical exam, laboratory and radiologic data as documented in the signed ICU note. I have reviewed and discussed my treatment plan with the ICU team and other medical/hearing consultant staff, making frequent assessments and decisions regarding this patient's complex medical care. Critical Care time was exclusive of time spent performing separately billed procedures, treating other patients, and teaching. This time was in addition to and separate from critical care provided by other practitioners in my group on this day of service. Critical Care was necessary to treat or prevent imminent or life-threatening deterioration of the following conditions: CAD s/p CABG This time was spent by me doing the following: CAD s/p CABG management I spent time reviewing and interpreting data from bedside monitors, laboratory results, and imaging, I spent time discussing the management of this critically ill patient with consultants and the medical staff and I spent time documenting in the medical record Stacie Zamora PRICE LISTER IN CLINIC/BEDSIDE ORDER ALBERTO Final Result * POCT glucose (07/17/2025 6:58 AM CDT) Glucose, POC 129 70 - 199 mg/dL Blood 07/17/2025 6:58 AM CDT 07/17/2025 6:58 AM CDT Faby Medina MD LAB POCT ORDERABLES - DEVIC E Final Result Performing Organization Address [facility] Co de Phone Number [address] [address] * POCT glucose (07/17/2025 5:54 AM CDT) Glucose, POC 106 70 - 199 mg/dL Blood 07/17/2025 5:54 AM CDT 07/17/2025 5:54 AM CDT Faby Medina MD LAB POCT ORDERABLES - DEVIC E Final Result Performing Organization Address [facility] de Phone Number [address] [place] [address] * XR Chest 1 View - in AM (07/17/2025 5:42 AM CDT) Anatomical Region Laterality Modality Body, Chest N/A Computed Radiogr aphy 07/17/2025 5:52 AM CDT Narrative 07/17/2025 5:53 AM CDT EXAM DESCRIPTION: XR CHEST 1 VIEW REASON FOR STUDY: Pleural effusion Pleural effusion TECHNIQUE: Single radiographic view of the chest. COMPARISON: Chest x-ray of July 16, 2025. FINDINGS: LUNGS/PLEURA: Lungs are mildly hypoventilatory yet clear. HEART/MEDIASTINUM: Cardiac silhouette is within normal limits for AP hypoventilatory view. Remaining mediastinal silhouettes are unremarkable. HARDWARE/LINES/TUBES: EKG leads overlie the film. There are sequelae of sternotomy. Left atrial appendage occlusion device is seen in place. An endotracheal tube is seen in place with its tip approximately half way between the thoracic inlet and the rambo. An enteric tube traverses the midline and ends with its tip below the inferior margin of the film. Right internal jugular central venous catheter is present with its tip in the expected location of the SVC . BONES: No acute findings. IMPRESSION: Mildly hypoventilatory chest. Central line and tubes in appropriate position. THIS IS AN ELECTRONICALLY VERIFIED FINAL REPORT 07/17/2025 5:53 AM - Electronically signed by Rehana Candelaria M.D. SN T: Report ID: [id number] Reading Location: [id number] Procedure Note Rehana Candelaria MD - 07/17/2025 EXAM DESCRIPTION: XR CHEST 1 VIEW REASON FOR STUDY: Pleural effusion Pleural effusion TECHNIQUE: Single radiographic view of the chest. COMPARISON: Chest x-ray of July 16, 2025. FINDINGS: LUNGS/PLEURA: Lungs are mildly hypoventilatory yet clear. HEART/MEDIASTINUM: Cardiac silhouette is within normal limits for AP hypoventilatory view. Remaining mediastinal silhouettes areunremarkable. HARDWARE/LINES/TUBES: EKG leads overlie the film. There are sequelae of sternotomy. Left atrial appendage occlusion device is seen in place. An endotracheal tube is seen in place with its tip approximately half way between the thoracic inlet and the rambo. An enteric tube traverses the midline and ends with its tip below the inferior margin of the film.Right internal jugular central venous catheter is present with its tip in the expected location of the SVC . BONES: No acute findings. IMPRESSION: Mildly hypoventilatory chest. Central line and tubes in appropriate position. THIS IS AN ELECTRONICALLY VERIFIED FINAL REPORT 07/17/2025 5:53 AM - Electronically signed by Rehana Candelaria M.D. SN T: Report ID: [id number] Reading Location: [id number] Stacie Zamora PRICE LISTER IMG XR PROCEDURES Final Result * (ABNORMAL) POC Blood Gas and Chemistries, Arterial - (07/17/2025 5:08 AM CDT) Pathologist [facility] pH, art POC 7.44 7.35 - 7.45 pCO2, art POC 35 35 - 45 mmHg [facility] pO2, art POC 116(H) 83 - 108 mmHg [facility] HCO3, art (Calc) POC 24 20 - 30 mmol/L [facility] Base excess, art POC 0 mmol/L [facility] Comment: Interpretive Data No reference range established. Current interpretive data was last revised 2020. O2 Sat, art (Calc) POC 100(H) 94 - 98 % [facility] Oxy Hgb, art POC 97.8(H) 90.0 - 95.0 % [facility] Met Hgb, art POC 0.4 0.0 - 1.9 % [facility] Carboxy Hgb, art POC 1.5 0.0 - 2.9 % [facility] Hemoglobin, art POC 11.2(L) 13.0 - 17.5 g/dL [facility] Sodium, art POC 134(L) 135 - 145 mmol/L [facility] Potassium, art POC 3.8 3.3 - 4.9 mmol/L [facility] Comment: Interpretive Data This method is not able to assess for hemolysis, which may falsely increase potassium concentrations. If further testing is needed to evaluate this result, consider in-laboratory plasma potassium. Current Interpretive Data was last revised on 2022. Glucose, art POC 99 70 - 199 mg/dL [facility] Ionized Calcium, art POC 4.52 4.50 - 5.10 mg/dL [facility] Lactate, art POC 0.9 0.7 - 2.0 mmol/L [facility] Blood 07/17/2025 5:08 AM CDT 07/17/2025 5:08 AM CDT Faby Medina MD LAB POCT ORDERABLES - DEVIC E Final Result Performing Organization Address [facility] Co de Phone Number DELIA [address] [place] [address] * eGFR (07/17/2025 4:17 AM CDT) Pathologist [facility] eGFR >90 >=60 mL/min/1. 73 m2 Comment: Interpretive Data Reference Interval Normal >/= 90 mL/min/1.73m2 Mildly decreased* 60 - 89 mL/min/1.73m2 Mildly to moderately decreased 45 - 59 mL/min/1.73m2 Moderately to severely decreased 30 - 44 mL/min/1.73m2 Severely decreased 15 - 29 mL/min/1.73m2 Kidney Failure < 15 mL/min/1.73m2 *Relative to young adult level Estimated glomerular filtration rate is determined by the 2020 CKD-EPI equation recommended by the National Kidney [employer] (A Unifying Approach to GFR Estimation: Recommendations of the NKF-ASK Task Force on Reassessing the Inclusion of Race in Diagnosing Kidney Disease, JASN 2020). The CKD-EPI equation should not be used for patients with unstable renal function and has not been validated in children and those over 70. Current interpretive data was last reviewed 2021. Blood 07/17/2025 4:17 AM CDT 07/17/2025 5:34 AM CDT us Sudha SEGUNDO LAB BLOOD ORDERABLES Fi nal Result Performing Organization Address [facility]/ZIP Co de Phone Number [address] [place] [address] * (ABNORMAL) CBC without differential (07/17/2025 4:17 AM CDT) [facility] WBC 11.55(H) 3.80 - 9.90 K/cumm Hgb 10.7(L) 13.0 - 17.5 g/dL [facility] Hct 33.4(L) 38.9 - 50.3 % [facility] Plt 180 150 - 400 K/cumm [facility] MPV 11.1 9.1 - 12.3 fL [facility] RBC 3.73(L) 4.30 - 5.80 M/cumm [facility] MCV 89.5 81.3 - 96.4 fL [facility] MCH 28.7 27.1 - 33.3 pg [facility] MCHC 32.0(L) 32.3 - 35.7 g/dL [facility] RDW CV 13.5 11.1 - 14.9 % [facility] RDW SD 44.1 35.7 - 48.1 fL [facility] NRBC abs 0.00 0.00 - 0.01 K/cumm [facility] Blood 07/17/2025 4:17 AM CDT 07/17/2025 5:34 AM CDT Stacie Zamora NP LAB BLOOD ORDERABLES Fi nal Result Performing Organization Address City/[facility] Co de Phone Number [address] [place] [address] * Phosphorus (07/17/2025 4:17 AM CDT) Pathologist [facility] Phosphorus, pl 2.5 2.3 - 4.5 mg/dL Blood 07/17/2025 4:17 AM CDT 07/17/2025 5:34 AM CDT Sudha SEGUNDO LAB BLOOD ORDERABLES Fi nal Result Performing Organization Address [facility]/ZIP Co de Phone Number [address] [place] [address] * Magnesium (07/17/2025 4:17 AM CDT) Pathologist [facility] Magnesium 2.3 1.4 - 2.5 mg/dL Blood 07/17/2025 4:17 AM CDT 07/17/2025 5:34 AM CDT Stacie Zamora NP LAB BLOOD ORDERABLES Fi nal Result Performing Organization Address City/[facility]/ZIP Co de Phone Number DELIA [address] [place] [address] * (ABNORMAL) Basic metabolic panel (07/17/2025 4:17 AM CDT) Sodium 142 135 - 145 mmol/L Potassium, pl 3.9 3.3 - 4.9 mmol/L [facility] Chloride 110 97 - 110 mmol/L [facility] CO2 25 22 - 32 mmol/L [facility] Anion gap 7 2 - 15 mmol/L [facility] BUN 14 6 - 25 mg/dL [facility] Creatinine 0.68(L) 0.80 - 1.30 mg/dL [facility] Glucose 106 70 - 199 mg/dL [facility] Comment: Interpretive Data Fasting glucose >/= 126 mg/dl is diagnostic for diabetes. Fasting is defined as no caloric intake for at least 8 hours. Fasting glucose between 100 mg/dl to 125 mg/dl is diagnostic of prediabetes. In a patient with classic symptoms of hyperglycemia or hyperglycemic crisis, a random glucose >/= 200 mg/dl is diagnostic for diabetes. In the absence of unequivocal hyperglycemia, results should be confirmed by repeat testing. The classification and Diagnosis of Diabetes Diabetes Care 2021; 46: S19-S40. Current interpretive data was last revised 2022. Calcium 8.1(L) 8.5 - 10.3 mg/dL [facility] Blood 07/17/2025 4:17 AM CDT 07/17/2025 5:34 AM CDT Stacie Zamora PRICE LISTER LAB BLOOD ORDERABLES Fi nal Result Performing Organization Address [facility]/ZIP Co de Phone Number DELIA [address] [place] [address] * POCT glucose (07/17/2025 3:53 AM CDT) Glucose, POC 109 70 - 199 mg/dL Blood 07/17/2025 3:53 AM CDT 07/17/2025 3:53 AM CDT us Faby Medina MD LAB POCT ORDERABLES - DEVIC E Final Result Performing Organization Address [facility] Co de Phone Number SRA[address] [place] [address] * POCT glucose (07/17/2025 3:06 AM CDT) Glucose, POC 105 70 - 199 mg/dL Blood 07/17/2025 3:06 AM CDT 07/17/2025 3:06 AM CDT Faby Medina MD LAB POCT ORDERABLES - DEVIC E Final Result Performing Organization Address [facility] de Phone Number [address] [place] [address] * POCT glucose (07/17/2025 2:12 AM CDT) Glucose, POC 112 70 - 199 mg/dL Blood 07/17/2025 2:12 AM CDT 07/17/2025 2:12 AM CDT Faby Medina MD LAB POCT ORDERABLES - DEVIC E Final Result Performing Organization Address [facility] Co de Phone Number [address] [place] [address] * POCT glucose (07/17/2025 1:14 AM CDT) Glucose, POC 116 70 - 199 mg/dL Blood 07/17/2025 1:14 AM CDT 07/17/2025 1:14 AM CDT us Faby Medina MD LAB POCT ORDERABLES - DEVIC E Final Result Performing Organization Address [facility] Co de Phone Number [address] [place] [address] * POCT glucose (07/16/2025 11:53 PM CDT) Glucose, POC 120 70 - 199 mg/dL Glucose comment 1 RN/MD Notified [facility] Blood 07/16/2025 11:5 3 PM CDT 07/16/2025 11:53 PM CDT Faby Medina MD LAB POCT ORDERABLES - DEVIC E Final Result [address] [address] * POCT glucose (07/16/2025 11:00 PM CDT) Glucose, POC 119 70 - 199 mg/dL Glucose comment 1 RN/ Notified [facility] Blood 07/16/2025 11:0 0 PM CDT 07/16/2025 11:00 PM CDT Faby Medina MD LAB POCT ORDERABLES - DEVIC E Final Result Performing Organization Address [facility]/ZIP Co de Phone Number [address] [place] [address] * POCT glucose (07/16/2025 10:08 PM CDT) Glucose, POC 139 70 - 199 mg/dL Glucose comment 1 RN/ Notified [facility] Blood 07/16/2025 10:0 8 PM CDT 07/16/2025 10:08 PM CDT Faby Medina MD LAB POCT ORDERABLES - DEVIC E Final Result [address] [place] [address] * POCT glucose (07/16/2025 9:19 PM CDT) Glucose, POC 138 70 - 199 mg/dL Glucose comment 1 Follow Protocol [facility] Blood 07/16/2025 9:19 PM CDT 07/16/2025 9:19 PM CDT Faby Medina MD LAB POCT ORDERABLES - DEVIC E Final Result Performing Organization Address [facility] Co de Phone Number [address] [place] [address] * POCT glucose (07/16/2025 8:25 PM CDT) Glucose, POC 135 70 - 199 mg/dL Glucose comment 1 Follow Protocol [facility] Blood 07/16/2025 8:25 PM CDT 07/16/2025 8:25 PM CDT Faby Medina MD LAB POCT ORDERABLES - DEVIC E Final Result Performing Organization Address [facility] Co de Phone Number [address] [address] * Critical Care (07/16/2025 7:50 PM CDT) Narrative Olesya Veloz MD - 07/16/2025 7:50 PM CDT Olesya Veloz MD 07/17/2025 5:43 AM Critical Care Performed by: Olesya Veloz MD Authorized by: Olesya Veloz MD CRITICAL CARE: Team: [facility] Shift: PM Level of Billing: Critical Care My time spent with this patient was 50 minutes: Critical Provider Statement: I have seen and examined the patient on this day of service. I have reviewed and confirmed the history, physical exam, laboratory and radiologic data as documented in the signed ICU note. I have reviewed and discussed my treatment plan with the ICU team and other medical/hearing consultant staff, making frequent assessments and decisions regarding this patient's complex medical care. Critical Care time was exclusive of time spent performing separately billed procedures, treating other patients, and teaching. This time was in addition to and separate from critical care provided by other practitioners in my group on this day of service. Critical Care was necessary to treat or prevent imminent or life-threatening deterioration of the following conditions: Acute pain/acute postoperative pain S/p CABG This time was spent by me doing the following: Serial bedside patient exams and Serial laboratory checks Acute pain control and Active titration of continuous sedation Active and frequent reassessment of respiratory status and oxygen requirements and Invasive ventilator management, reassessment, and titration Active and frequent monitoring of intake/output and volumen status and Glycemic control I spent time reviewing and interpreting data from bedside monitors, laboratory results, and imaging, I spent time discussing the management of this critically ill patient with consultants and the medical staff and I spent time documenting in the medical record us Olesya Veloz MD IN CLINIC/BEDSIDE ORDERABLE S Edited Result - Final * POCT glucose (07/16/2025 7:24 PM CDT) Glucose, POC 151 70 - 199 mg/dL Glucose comment 1 Follow Protocol [facility] Blood 07/16/2025 7:24 PM CDT 07/16/2025 7:24 PM CDT us Faby Medina MD LAB POCT ORDERABLES - DEVIC E Final Result [facility] [address] [facility] [place] [address] * (ABNORMAL) POC Blood Gas and Chemistries, Arterial - (07/16/2025 5:55 PM CDT) pH, art POC 7.30(L) 7.35 - 7.45 pCO2, art POC 48(H) 35 - 45 mmHg [facility] pO2, art POC 73(L) 83 - 108 mmHg [facility] HCO3, art (Calc) POC 24 20 - 30 mmol/L [facility] Base excess, art POC -3 mmol/L [facility] Comment: Interpretive Data No reference range established. Current interpretive data was last revised 2020. O2 Sat, art (Calc) POC 96 94 - 98 % [facility] Oxy Hgb, art POC 94.2 90.0 - 95.0 % [facility] Met Hgb, art POC 0.5 0.0 - 1.9 % [facility] Carboxy Hgb, art POC 1.9 0.0 - 2.9 % [facility] Hemoglobin, art POC 11.9(L) 13.0 - 17.5 g/dL [facility] Blood 07/16/2025 5:55 PM CDT 07/16/2025 5:55 PM CDT Faby Medina MD LAB POCT ORDERABLES - DEVIC E Final Result Performing Organization Address [facility]/ZIP Co de Phone Number [address] [place] [address] * POCT glucose (07/16/2025 5:51 PM CDT) Glucose, POC 170 70 - 199 mg/dL Glucose comment 1 Follow Protocol [facility] Blood 07/16/2025 5:51 PM CDT 07/16/2025 5:51 PM CDT Faby Medina MD LAB POCT ORDERABLES - DEVIC E Final Result Performing Organization Address [facility] Co de Phone Number [address] [place] [address] * POCT glucose (07/16/2025 4:47 PM CDT) Glucose, POC 169 70 - 199 mg/dL Glucose comment 1 Follow Protocol [facility] Blood 07/16/2025 4:47 PM CDT 07/16/2025 4:47 PM CDT Faby Medina MD LAB POCT ORDERABLES - DEVIC E Final Result Performing Organization Address [facility]/ZIP Co de Phone Number [address] [place] [address] * XR Kub (07/16/2025 4:19 PM CDT) Anatomical Region Laterality Modality Body, Abdomen N/A Computed Radiogr aphy 07/16/2025 5:05 PM CDT Narrative 07/16/2025 5:06 PM CDT EXAM DESCRIPTION: XR KUB REASON FOR STUDY: ICU pt, recent tube or catheter insert OG repositioning TECHNIQUE: Single radiographic view of the abdomen. COMPARISON: Chest x-ray earlier today FINDINGS: This film 07/16/2025 at 4:09 p.m.. The tip of the enteric tube overlies the fundus of the stomach. Proximal port is seen below the level of the hemidiaphragm. IMPRESSION: Tip of the enteric tube overlies the fundus of the stomach. THIS IS AN ELECTRONICALLY VERIFIED FINAL REPORT 07/16/2025 5:06 PM - Electronically signed by Vijay NAPIER T: Report ID: [id number] Reading Location: [id number] Procedure Note Vijay Valdovinos MD - 07/16/2025 EXAM DESCRIPTION: XR KUB REASON FOR STUDY: ICU pt, recent tube or catheter insert OG repositioning TECHNIQUE: Single radiographic view of the abdomen. COMPARISON: Chest x-ray earlier today FINDINGS: This film 07/16/2025 at 4:09 p.m.. The tip of the enteric tube overlies the fundus of the stomach. Proximalport is seen below the level of the hemidiaphragm. IMPRESSION: Tip of the enteric tube overlies the fundus of the stomach. THIS IS AN ELECTRONICALLY VERIFIED FINAL REPORT 07/16/2025 5:06 PM - Electronically signed by Vijay NAPIER T: Report ID: [id number] Reading Location: [id number] Wanda Escalante PRICE LISTER IMG XR PROCEDURES Final Result * POCT glucose (07/16/2025 3:41 PM CDT) Glucose, POC 169 70 - 199 mg/dL Glucose comment 1 Follow Protocol [facility]IA ALLEN Blood 07/16/2025 3:41 PM CDT 07/16/2025 3:41 PM CDT Faby Medina MD LAB POCT ORDERABLES - DEVIC E Final Result [facility] [address] [facility] [place] [address] * ECG 12 lead (07/16/2025 2:51 PM CDT) [facility] Ventricular Rate EKG/Min 89 BPM [facility] QRS-Interval (MSEC) 96 ms [facility] QT-Interval (MSEC) 402 ms [facility] QTc 489 ms [facility] R [place] 107 degrees [facility] T [place] 59 degrees [facility] Diagnosis Accelerated Junctional rhythm Rightward axis Incomplete right bundle branch block Prolonged QT When compared with ECG of 08-JUL-2025 10:03, Junctional rhythm has replaced Sinus rhythm QT has lengthened Confirmed by SULTAN BLANKENSHIP M.D. ([id number]) on 07/16/2025 3:41:56 PM [facility] 07/16/2025 2:51 PM CDT 07/16/2025 3:41 PM CDT Sudha SEGUNDO ECG ORDERABLES Final R esult Performing Organization Address [facility] Co de Phone Number [facility] * (ABNORMAL) POC Blood Gas and Chemistries, Arterial - (07/16/2025 2:40 PM CDT) Pathologist [facility] pH, art POC 7.27(L) 7.35 - 7.45 pCO2, art POC 52(H) 35 - 45 mmHg [facility] pO2, art POC 64(L) 83 - 108 mmHg [facility] HCO3, art (Calc) POC 24 20 - 30 mmol/L [facility] Base excess, art POC -4 mmol/L [facility] Comment: Interpretive Data No reference range established. Current interpretive data was last revised 2020. O2 Sat, art (Calc) POC 92(L) 94 - 98 % [facility] Oxy Hgb, art POC 89.2(L) 90.0 - 95.0 % [facility] Met Hgb, art POC 0.5 0.0 - 1.9 % [facility] Carboxy Hgb, art POC 2.5 0.0 - 2.9 % [facility] Hemoglobin, art POC 12.2(L) 13.0 - 17.5 g/dL [facility] Blood 07/16/2025 2:40 PM CDT 07/16/2025 2:40 PM CDT Faby Medina MD LAB POCT ORDERABLES - DEVIC E Final Result Performing Organization Address [facility] Co de Phone Number DELIA [address] [place] [address] * POCT glucose (07/16/2025 2:33 PM CDT) [facility] Signature Glucose, POC 151 70 - 199 mg/dL Glucose comment 1 RN/MD Notified [facility] Blood 07/16/2025 2:33 PM CDT 07/16/2025 2:33 PM CDT Faby Medina MD LAB POCT ORDERABLES - DEVIC E Final Result Performing Organization Address [facility] Co de Phone Number [address] [place] [address] * XR Chest 1 View (07/16/2025 2:27 PM CDT) Anatomical Region Laterality Modality Body, Chest N/A Computed Radiogr aphy 07/16/2025 3:18 PM CDT Narrative 07/16/2025 3:27 PM CDT EXAM DESCRIPTION: XR CHEST 1 VIEW REASON FOR STUDY: Pleural effusion Post cabg TECHNIQUE: Single radiographic view(s) of the chest. COMPARISON: Prior exam 07/08/2025 FINDINGS: Patient has undergone interval median sternotomy. Tip of the endotracheal tube is 5.6 cm above the rambo. The tip of the enteric tube is just at the level of the hemidiaphragm. The proximal port is projecting over the distal esophagus. Recommend advancing 15 cm. Right IJ central line tip overlies the lower SVC. Bilateral pleural drains are seen. Likely atrial appendage clip. Correlate clinically. Numerous leads overlie the patient. Mild prominence of the cardiac silhouette and pulmonary vascularity. Mild right and minimal left basilar opacity favors postoperative atelectasis. No acute osseous findings. Old ORIF left clavicle. IMPRESSION: 1. The tip of the enteric tube is just at the level of the hemidiaphragm. The proximal port is projecting over the distal esophagus. Recommend advancing 15 cm. 2. Tip of the endotracheal tube is 5.6 cm above the rambo. 3. Right IJ central line tip overlies the lower SVC. 4. Bilateral pleural drains are seen. 5. Mild prominence of the cardiac silhouette and pulmonary vascularity. 6. Mild right basilar and minimal left basilar opacity favors postoperative atelectasis. 7. I spoke with the patient's nurse, Adi at the time of dictation, 3:27 p.m., 07/16/2025. THIS IS AN ELECTRONICALLY VERIFIED FINAL REPORT 07/16/2025 3:27 PM - Electronically signed by Vijay Valdovinos M.D. MJ T: Report ID: [id number] Reading Location: [id number] Procedure Note Vijay Valdovinos MD - 07/16/2025 EXAM DESCRIPTION: XR CHEST 1 VIEW REASON FOR STUDY: Pleural effusion Post cabg TECHNIQUE: Single radiographic view(s) of the chest. COMPARISON: Prior exam 07/08/2025 FINDINGS: Patient has undergone interval median sternotomy. Tip of the endotracheal tube is 5.6 cm above the rambo. The tip of the enteric tube is just at the level of the hemidiaphragm.The proximal port is projecting over the distal esophagus. Recommendadvancing 15 cm. Right IJ central line tip overlies the lower SVC. Bilateral pleural drains are seen. Likely atrial appendage clip. Correlate clinically. Numerous leads overlie the patient. Mild prominence of the cardiac silhouette and pulmonary vascularity. Mild right and minimal left basilar opacity favors postoperative atelectasis.No acute osseous findings. Old ORIF left clavicle. IMPRESSION: 1. The tip of the enteric tube is just at the level of thehemidiaphragm. The proximal port is projecting over the distal esophagus. Recommendadvancing 15 cm. 2. Tip of the endotracheal tube is 5.6 cm above the rambo. 3. Right IJ central line tip overlies the lower SVC. 4. Bilateral pleural drains are seen. 5. Mild prominence of the cardiac silhouette and pulmonaryvascularity. 6. Mild right basilar and minimal left basilar opacity favorspostoperative atelectasis. 7. I spoke with the patient's nurse, Adi at the time of dictation, 3:27 p.m., 07/16/2025. THIS IS AN ELECTRONICALLY VERIFIED FINAL REPORT 07/16/2025 3:27 PM - Electronically signed by Vijay Valdovinos M.D. MJ T: Report ID: [id number] Reading Location: [place] [address] [facility] IMG XR PROCEDURES Final Result * (ABNORMAL) POC Blood Gas and Chemistries, Arterial - (07/16/2025 1:52 PM CDT) pH, art POC 7.24(L) 7.35 - 7.45 pCO2, art POC 55(H) 35 - 45 mmHg [facility] pO2, art POC 73(L) 83 - 108 mmHg [facility] HCO3, art (Calc) POC 24 20 - 30 mmol/L [facility] Base excess, art POC -4 mmol/L [facility] Comment: Interpretive Data No reference range established. Current interpretive data was last revised 2020. O2 Sat, art (Calc) POC 95 94 - 98 % [facility] Oxy Hgb, art POC 92.2 90.0 - 95.0 % [facility] Met Hgb, art POC 0.2 0.0 - 1.9 % [facility] Carboxy Hgb, art POC 2.7 0.0 - 2.9 % [facility] Hemoglobin, art POC 11.8(L) 13.0 - 17.5 g/dL [facility] Sodium, art POC 137 135 - 145 mmol/L [facility] Potassium, art POC 4.0 3.3 - 4.9 mmol/L [facility] Comment: Interpretive Data This method is not able to assess for hemolysis, which may falsely increase potassium concentrations. If further testing is needed to evaluate this result, consider in-laboratory plasma potassium. Current Interpretive Data was last revised on 2022. Glucose, art POC 148 70 - 199 mg/dL [facility] Ionized Calcium, art POC 4.30(L) 4.50 - 5.10 mg/dL [facility] Lactate, art POC 1.3 0.7 - 2.0 mmol/L [facility] Blood 07/16/2025 1:52 PM CDT 07/16/2025 1:52 PM CDT Faby Medina MD LAB POCT ORDERABLES - DEVIC E Final Result Performing Organization Address [facility] de Phone Number [address] [place] [address] * POCT glucose (07/16/2025 1:41 PM CDT) [facility] Glucose, POC 153 70 - 199 mg/dL Blood 07/16/2025 1:41 PM CDT 07/16/2025 1:41 PM CDT Faby Medina MD LAB POCT ORDERABLES - DEVIC E Final Result Performing Organization Address [facility] de Phone Number [address] [place] [address] * eGFR (07/16/2025 1:37 PM CDT) [facility] eGFR >90 >=60 mL/min/1. 73 m2 Comment: Interpretive Data Reference Interval Normal >/= 90 mL/min/1.73m2 Mildly decreased* 60 - 89 mL/min/1.73m2 Mildly to moderately decreased 45 - 59 mL/min/1.73m2 Moderately to severely decreased 30 - 44 mL/min/1.73m2 Severely decreased 15 - 29 mL/min/1.73m2 Kidney Failure < 15 mL/min/1.73m2 *Relative to young adult level Estimated glomerular filtration rate is determined by the 2020 CKD-EPI equation recommended by the National Kidney Foundation (A Unifying Approach to GFR Estimation: Recommendations of the NKF-ASK Task Force on Reassessing the Inclusion of Race in Diagnosing Kidney Disease, JASN 202). The CKD-EPI equation should not be used for patients with unstable renal function and has not been validated in children and those over 70. Current interpretive data was last reviewed 2021. Blood 07/16/2025 1:37 PM CDT 07/16/2025 1:48 PM CDT [employer] LAB BLOOD ORDERABLES Fi nal Result Performing Organization Address [facility] de Phone Number [address] [place] [address] * aPTT (07/16/2025 1:37 PM CDT) aPTT 29 22 - 37 sec Comment: Interpretive data aPTT test has not been evaluated for monitoring heparin therapy. The anti-Xa is the preferred test. Current interpretive data was last revised on 2019. Blood 07/16/2025 1:37 PM CDT 07/16/2025 1:48 PM CDT [facility] [employer] LAB BLOOD ORDERABLES Fi nal Result Performing Organization Address [facility] Co de Phone Number [address] [place] [address] * (ABNORMAL) Protime-INR (07/16/2025 1:37 PM CDT) PT 17.50(H) 12.00 - 14.60 sec INR 1.43(H) 0.90 - 1.20 DELIA Comment: Interpretive data Oral anticoagulant therapeutic ranges: Venous thromboembolism prophylaxis or treatment: 2.0-3.0 CARDIOLOGY Standard range: 2.0-3.0 High-intensity range: 2.5-3.5 Refer to indication-specific guidelines for appropriate target ranges for prosthetic heart valve replacement. Current interpretive data was last revised on 2019. Blood 07/16/2025 1:37 PM CDT 07/16/2025 1:48 PM CDT [facility] [employer] LAB BLOOD ORDERABLES Fi nal Result Performing Organization Address [facility] Co de Phone Number DELIA [address] [place] [address] * (ABNORMAL) CBC without differential (07/16/2025 1:37 PM CDT) WBC 24.90(H) 3.80 - 9.90 K/cumm Hgb 11.2(L) 13.0 - 17.5 g/dL [facility] Hct 35.1(L) 38.9 - 50.3 % [facility] Plt 192 150 - 400 K/cumm [facility] MPV 10.3 9.1 - 12.3 fL [facility] RBC 3.86(L) 4.30 - 5.80 M/cumm [facility] MCV 90.9 81.3 - 96.4 fL [facility] MCH 29.0 27.1 - 33.3 pg [facility] MCHC 31.9(L) 32.3 - 35.7 g/dL [facility] RDW CV 13.7 11.1 - 14.9 % [facility] RDW SD 45.1 35.7 - 48.1 fL [facility] NRBC abs 0.00 0.00 - 0.01 K/cumm [facility] Blood 07/16/2025 1:37 PM CDT 07/16/2025 1:48 PM CDT [employer] LAB BLOOD ORDERABLES Fi nal Result Performing Organization Address City/[facility]/ZIP Co de Phone Number [address] [employer] [place], [place] [id number] * Phosphorus (07/16/2025 1:37 PM CDT) [facility] Phosphorus, pl 3.3 2.3 - 4.5 mg/dL Blood 07/16/2025 1:37 PM CDT 07/16/2025 1:48 PM CDT [facility] LAB BLOOD ORDERABLES Fi nal Result Performing Organization Address [facility] de Phone Number [address] [place] [address] * Magnesium (07/16/2025 1:37 PM CDT) [facility] Magnesium 2.3 1.4 - 2.5 mg/dL Blood 07/16/2025 1:37 PM CDT 07/16/2025 1:48 PM CDT Result [facility] LAB BLOOD ORDERABLES Fi nal Result Performing Organization Address [facility] de Phone Number [address] [place] [address] * (ABNORMAL) Basic metabolic panel (07/16/2025 1:37 PM CDT) [facility] Sodium 141 135 - 145 mmol/L Potassium, pl 4.2 3.3 - 4.9 mmol/L [facility] Chloride 111(H) 97 - 110 mmol/L [facility] CO2 23 22 - 32 mmol/L [facility] Anion gap 7 2 - 15 mmol/L [facility] BUN 18 6 - 25 mg/dL [facility] Creatinine 0.86 0.80 - 1.30 mg/dL [facility] Glucose 162 70 - 199 mg/dL [facility] Comment: Interpretive Data Fasting glucose >/= 126 mg/dl is diagnostic for diabetes. Fasting is defined as no caloric intake for at least 8 hours. Fasting glucose between 100 mg/dl to 125 mg/dl is diagnostic of prediabetes. In a patient with classic symptoms of hyperglycemia or hyperglycemic crisis, a random glucose >/= 200 mg/dl is diagnostic for diabetes. In the absence of unequivocal hyperglycemia, results should be confirmed by repeat testing. The classification and Diagnosis of Diabetes Diabetes Care 202; 46: S19-S40. Current interpretive data was last revised 2022. Calcium 7.3(L) 8.5 - 10.3 mg/dL [facility] Blood 07/16/2025 1:37 PM CDT 07/16/2025 1:48 PM CDT [facility] Paigeluis eduardo [facility] LAB BLOOD ORDERABLES Fi nal Result [facility] [address] [facility] Department [place] [address] * (ABNORMAL) POC Blood Gas and Chemistries, Arterial - (07/16/2025 12:58 PM CDT) pH, art POC 7.25(L) 7.35 - 7.45 pCO2, art POC 51(H) 35 - 45 mmHg [facility] pO2, art POC 79(L) 83 - 108 mmHg [facility] HCO3, art (Calc) POC 22 20 - 30 mmol/L [facility] Base excess, art POC -5 mmol/L [facility] Comment: Interpretive Data No reference range established. Current interpretive data was last revised 2020. O2 Sat, art (Calc) POC 93(L) 94 - 98 % [facility] Hemoglobin, art POC 11.9(L) 13.0 - 17.5 g/dL [facility] Hematocrit, art POC 35.0(L) 38.9 - 50.3 % [facility] Sodium, art POC 144 135 - 145 mmol/L [facility] Potassium, art POC 4.0 3.3 - 4.9 mmol/L [facility] Comment: Interpretive Data This method is not able to assess for hemolysis, which may falsely increase potassium concentrations. If further testing is needed to evaluate this result, consider in-laboratory plasma potassium. Current Interpretive Data was last revised on 2022. Glucose, art POC 159 70 - 199 mg/dL [facility] Ionized Calcium, art POC 4.50 4.50 - 5.10 mg/dL [facility] Blood 07/16/2025 12:5 8 PM CDT 07/16/2025 12:58 PM CDT us Faby Medina MD LAB POCT ORDERABLES - DEVIC E Final Result [facility]IA ALLEN [address] [facility] [place] [address] * Critical Care (07/16/2025 12:45 PM CDT) Narrative Natalia Peterson, - 07/16/2025 12:45 PM CDT Natalia Peterson DO 07/17/2025 8:43 PM Critical Care Performed by: Elina Max NP Authorized by: Elina Max NP CRITICAL CARE: Team: [facility] Shift: AM Level of Billing: Critical Care My time spent with this patient was 75 minutes: Critical Provider Statement: I have seen and examined the patient on this day of service. I have reviewed and confirmed the history, physical exam, laboratory and radiologic data as documented in the signed ICU note. I have reviewed and discussed my treatment plan with the ICU team and other medical/hearing consultant staff, making frequent assessments and decisions regarding this patient's complex medical care. Critical Care time was exclusive of time spent performing separately billed procedures, treating other patients, and teaching. This time was in addition to and separate from critical care provided by other practitioners in my group on this day of service. Critical Care was necessary to treat or prevent imminent or life-threatening deterioration of the following conditions: Acute pain/acute postoperative pain and Agitation requiring sedation Post-op CABG Acute respiratory insufficiency Leukocytosis This time was spent by me doing the following: Serial bedside patient exams and Serial laboratory checks Acute pain control and Administration of sedatives and psychotropic medications Active and frequent reassessment of respiratory status and oxygen requirements and Invasive ventilator management, reassessment, and titration Glycemic control Active repletion of electrolytes Review of prior or current culture/gram stain results I spent time reviewing and interpreting data from bedside monitors, laboratory results, and imaging, I spent time discussing the management of this critically ill patient with consultants and the medical staff, I spent time documenting in the medical record, I spent time talking to this patient's relatives to obtain additional medical history due to patient's inabililty to provide history and I spent time talking to this patient's surrogate decision maker to determine treatment plans due to patient's inability to participate in decision making Elina Max [facility]ED[facility] DE ORDERABLES Final Result * (ABNORMAL) POC Blood Gas and Chemistries, Arterial - (07/16/2025 12:16 PM CDT) pH, art POC 7.27(L) 7.35 - 7.45 pCO2, art POC 53(H) 35 - 45 mmHg [facility] pO2, art POC 83 83 - 108 mmHg [facility] HCO3, art (Calc) POC 24 20 - 30 mmol/L [facility] Base excess, art POC -3 mmol/L [facility] Comment: Interpretive Data No reference range established. Current interpretive data was last revised 2020. O2 Sat, art (Calc) POC 94 94 - 98 % [facility] Hemoglobin, art POC 10.2(L) 13.0 - 17.5 g/dL [facility] Hematocrit, art POC 30.0(L) 38.9 - 50.3 % [facility] Sodium, art POC 143 135 - 145 mmol/L [facility] Potassium, art POC 4.3 3.3 - 4.9 mmol/L [facility] Comment: Interpretive Data This method is not able to assess for hemolysis, which may falsely increase potassium concentrations. If further testing is needed to evaluate this result, consider in-laboratory plasma potassium. Current Interpretive Data was last revised on 2022. Glucose, art POC 179 70 - 199 mg/dL [facility] Ionized Calcium, art POC 4.70 4.50 - 5.10 mg/dL [facility] Blood 07/16/2025 12:1 6 PM CDT 07/16/2025 12:16 PM CDT Faby Medina MD LAB POCT ORDERABLES - DEVIC E Final Result [facility]IA [address] [facility] Department [place] [address] * (ABNORMAL) POC Activated Clotting Time, High Range (07/16/2025 12:13 PM CDT) ACT 143(H) 87 - 138 sec POC Device Number [id number] [facility] Blood 07/16/2025 12:1 3 PM CDT 07/16/2025 12:13 PM CDT Faby Medina MD LAB BLOOD ORDERABLES Final Result [facility] [address] [place] [address] * (ABNORMAL) POC Blood Gas and Chemistries, Arterial - (07/16/2025 11:41 AM CDT) Pathologist [facility] pH, art POC 7.31(L) 7.35 - 7.45 pCO2, art POC 45 35 - 45 mmHg [facility] pO2, art POC 277(H) 83 - 108 mmHg [facility] HCO3, art (Calc) POC 23 20 - 30 mmol/L [facility] Base excess, art POC -4 mmol/L [facility] Comment: Interpretive Data No reference range established. Current interpretive data was last revised 2020. O2 Sat, art (Calc) POC 100(H) 94 - 98 % [facility] Hemoglobin, art POC 10.2(L) 13.0 - 17.5 g/dL [facility] Hematocrit, art POC 30.0(L) 38.9 - 50.3 % [facility] Sodium, art POC 140 135 - 145 mmol/L [facility] Potassium, art POC 5.1(H) 3.3 - 4.9 mmol/L [facility] Comment: Interpretive Data This method is not able to assess for hemolysis, which may falsely increase potassium concentrations. If further testing is needed to evaluate this result, consider in-laboratory plasma potassium. Current Interpretive Data was last revised on 2022. Glucose, art POC 205(H) 70 - 199 mg/dL [facility] Ionized Calcium, art POC 4.30(L) 4.50 - 5.10 mg/dL [facility] Blood 07/16/2025 11:4 1 AM CDT 07/16/2025 11:41 AM CDT Faby Medina MD LAB POCT ORDERABLES - DEVIC E Final Result Performing Organization Address [facility] Co de Phone Number [address] [place] [address] * (ABNORMAL) POC Activated Clotting Time, High Range (07/16/2025 11:39 AM CDT) [facility] ACT 457(H) 87 - 138 sec POC Device Number [id number] [facility] Blood 07/16/2025 11:3 9 AM CDT 07/16/2025 11:39 AM CDT Faby Medina MD LAB BLOOD ORDERABLES Final Result Performing Organization Address [facility] de Phone Number [address] [place] [address] * (ABNORMAL) POC Blood Gas and Chemistries, Arterial - (07/16/2025 11:14 AM CDT) [facility] pH, art POC 7.36 7.35 - 7.45 pCO2, art POC 42 35 - 45 mmHg [facility] pO2, art POC 342(H) 83 - 108 mmHg [facility] HCO3, art (Calc) POC 24 20 - 30 mmol/L [facility] Base excess, art POC -1 mmol/L [facility] Comment: Interpretive Data No reference range established. Current interpretive data was last revised 2020. O2 Sat, art (Calc) POC 100(H) 94 - 98 % [facility] Hemoglobin, art POC 10.2(L) 13.0 - 17.5 g/dL [facility] Hematocrit, art POC 30.0(L) 38.9 - 50.3 % [facility] Sodium, art POC 139 135 - 145 mmol/L [facility] Potassium, art POC 5.3(H) 3.3 - 4.9 mmol/L [facility] Comment: Interpretive Data This method is not able to assess for hemolysis, which may falsely increase potassium concentrations. If further testing is needed to evaluate this result, consider in-laboratory plasma potassium. Current Interpretive Data was last revised on 2022. Glucose, art POC 176 70 - 199 mg/dL [facility] Ionized Calcium, art POC 4.20(L) 4.50 - 5.10 mg/dL [facility] Blood 07/16/2025 11:1 4 AM CDT 07/16/2025 11:14 AM CDT Faby Medina MD LAB POCT ORDERABLES - DEVIC E Final Result Performing Organization Address City/[facility]/ZIP Co de Phone Number [address] [place] [address] * (ABNORMAL) POC Activated Clotting Time, High Range (07/16/2025 11:11 AM CDT) Pathologist [facility] ACT 450(H) 87 - 138 sec POC Device Number [id number] [facility] Blood 07/16/2025 11:1 1 AM CDT 07/16/2025 11:11 AM CDT Faby Medina MD LAB BLOOD ORDERABLES Final Result Performing Organization Address [facility] Co de Phone Number [address] [address] * (ABNORMAL) POC Blood Gas and Chemistries, Arterial - (07/16/2025 10:52 AM CDT) pH, art POC 7.32(L) 7.35 - 7.45 pCO2, art POC 46(H) 35 - 45 mmHg [facility] pO2, art POC 418(H) 83 - 108 mmHg [facility] HCO3, art (Calc) POC 24 20 - 30 mmol/L [facility] Base excess, art POC -2 mmol/L [facility] Comment: Interpretive Data No reference range established. Current interpretive data was last revised 2020. O2 Sat, art (Calc) POC 100(H) 94 - 98 % [facility] Hemoglobin, art POC 10.9(L) 13.0 - 17.5 g/dL [facility] Hematocrit, art POC 32.0(L) 38.9 - 50.3 % [facility] Sodium, art POC 139 135 - 145 mmol/L [facility] Potassium, art POC 5.2(H) 3.3 - 4.9 mmol/L [facility] Comment: Interpretive Data This method is not able to assess for hemolysis, which may falsely increase potassium concentrations. If further testing is needed to evaluate this result, consider in-laboratory plasma potassium. Current Interpretive Data was last revised on 2022. Glucose, art POC 150 70 - 199 mg/dL [facility] Ionized Calcium, art POC 4.40(L) 4.50 - 5.10 mg/dL [facility] Blood 07/16/2025 10:5 2 AM CDT 07/16/2025 10:52 AM CDT Faby Medina MD LAB POCT ORDERABLES - DEVIC E Final Result Performing Organization Address City/[facility]/ZIP Co de Phone Number [address] [place] [address] * (ABNORMAL) POC Activated Clotting Time, High Range (07/16/2025 10:50 AM CDT) ACT 421(H) 87 - 138 sec POC Device Number [id number] [facility] Blood 07/16/2025 10:5 0 AM CDT 07/16/2025 10:50 AM CDT Faby Medina MD LAB BLOOD ORDERABLES Final Result [address] [place] [address] * (ABNORMAL) POC Blood Gas and Chemistries, Arterial - (07/16/2025 10:15 AM CDT) pH, art POC 7.29(L) 7.35 - 7.45 pCO2, art POC 49(H) 35 - 45 mmHg [facility] pO2, art POC 69(L) 83 - 108 mmHg [facility] HCO3, art (Calc) POC 23 20 - 30 mmol/L [facility] Base excess, art POC -4 mmol/L [facility] Comment: Interpretive Data No reference range established. Current interpretive data was last revised 2020. O2 Sat, art (Calc) POC 91(L) 94 - 98 % [facility] Hemoglobin, art POC 12.2(L) 13.0 - 17.5 g/dL [facility] Hematocrit, art POC 36.0(L) 38.9 - 50.3 % [facility] Sodium, art POC 140 135 - 145 mmol/L [facility] Potassium, art POC 4.5 3.3 - 4.9 mmol/L [facility] Comment: Interpretive Data This method is not able to assess for hemolysis, which may falsely increase potassium concentrations. If further testing is needed to evaluate this result, consider in-laboratory plasma potassium. Current Interpretive Data was last revised on 2022. Glucose, art POC 132 70 - 199 mg/dL [facility] Ionized Calcium, art POC 4.60 4.50 - 5.10 mg/dL [facility] Blood 07/16/2025 10:1 5 AM CDT 07/16/2025 10:15 AM CDT Faby Medina MD LAB POCT ORDERABLES - DEVIC E Final Result Performing Organization Address [facility]/ZIP Co de Phone Number [address] Department [place] [address] * (ABNORMAL) POC Activated Clotting Time, High Range (07/16/2025 10:12 AM CDT) ACT 477(H) 87 - 138 sec POC Device Number [id number] [facility] Blood 07/16/2025 10:1 2 AM CDT 07/16/2025 10:12 AM CDT Faby Medina MD LAB BLOOD ORDERABLES Final Result Performing Organization Address City/[facility]/ZIP Co de Phone Number [address] [place] [address] * OR AN CENTRAL LINE DOUBLE LUMEN, OR AN PROCEDURE PLACEHOLDER (07/16/2025 10:05 AM CDT) Richy Mariano CRNA - 07/16/2025 10:05 AM CDT Richy Britt CRNA 07/16/2025 10:08 AM Central Venous Line Patient location: OR Start time: 07/16/2025 8:00 AM End Time: 07/16/2025 8:20 AM Indication: central venous access and CVP monitoring Staff: Placed by: [employer] MACHINE: Richy Britt CRNA Procedure prep: Patient position: Trendelenburg. PPE: provider hand hygiene, provider hat/mask, sterile gloves, sterile gown, large sterile drape, sterile gel, sterile probe covers and full body drape. Prep solution: chlorhexadine/alcohol was applied to area. Ultrasound Evaluation: Ultrasound was prepped into field. Ultrasound image(s) saved to archive. Prior to the procedure, the cannulated vein was evaluated by ultrasound and deemed suitably patent for access.This vessel was accessed using real-time ultrasound guidance and an image was placed in the patient's medical record Central line: Laterality: right Site: internal jugular An individually distinct skin insertion site is being utilized for placement of the catheter. Catheter type: double lumen Catheter size: 9 Fr. Additional catheter placed through introducer: triple lumen infusion catheter (TLIC) Technique: anatomy identified with ultrasound, vein located with finder needle, Seldinger technique, wire threaded easily and wire removed intact (Vein evaluated via U/S for patency/adequacy of catheter insertion and is adequate. Using real-time U/S imaging the vein was punctured and the needle was observed entering vein on U/S) Venous verification: ultrasound confirmation (Correct guidewire placement confirmed with short and long axis ultrasound views.) Post insertion: all ports aspirated, all ports flushed easily, line sutured in place and occlusive dressing applied Chlorhexidine patch applied: yes Number of attempts: 1 Assessment: Events: patient tolerated procedure well with no complications Additional comments: TOMAS Zavala placed central venous line under the guidance and assistance from Richy Britt CRNA and Dr. Canales. us Immanuel Canales MD ANESTHESIA ORDERAB LES Final Result * OR AN PROCEDURE PLACEHOLDER (07/16/2025 10:03 AM CDT) Narrative Immanuel Canales MD - 07/16/2025 10:03 AM CDT Immanuel Canales MD 07/16/2025 10:30 AM Arterial Line Patient location: OR End time: 07/16/2025 7:45 AM Indication: continuous blood pressure monitoring and blood sampling needed Staff: Placed by: Anesthesiologist: Immanuel Canales MD Procedure prep: Prep solution: chlorhexadine/alcohol Prep: provider hat/mask Skin infiltrated with lidocaine 1%: yes Arterial line: Catheter size: 20 gauge Arterial line catheter length: 1 1\2 Catheter type: wire-guided catheter Seldinger technique: yes Laterality: left Site: radial artery Line secured: tape and Tegaderm Results: good waveform and good blood return Number of attempts: 2 Assessment: Events: patient tolerated procedure well with no complications Immanuel Canales MD ANESTHESIA ORDERAB LES Final Result * (ABNORMAL) POC Blood Gas and Chemistries, Arterial - (07/16/2025 9:53 AM CDT) pH, art POC 7.29(L) 7.35 - 7.45 pCO2, art POC 47(H) 35 - 45 mmHg [facility] pO2, art POC 74(L) 83 - 108 mmHg [facility] HCO3, art (Calc) POC 23 20 - 30 mmol/L [facility] Base excess, art POC -4 mmol/L [facility] Comment: Interpretive Data No reference range established. Current interpretive data was last revised 2020. O2 Sat, art (Calc) POC 93(L) 94 - 98 % [facility] Hemoglobin, art POC 12.2(L) 13.0 - 17.5 g/dL [facility] Hematocrit, art POC 36.0(L) 38.9 - 50.3 % [facility] Sodium, art POC 141 135 - 145 mmol/L [facility] Potassium, art POC 4.2 3.3 - 4.9 mmol/L [facility] Comment: Interpretive Data This method is not able to assess for hemolysis, which may falsely increase potassium concentrations. If further testing is needed to evaluate this result, consider in-laboratory plasma potassium. Current Interpretive Data was last revised on 2022. Glucose, art POC 123 70 - 199 mg/dL [facility] Ion[facility] Calcium, art POC 4.50 4.50 - 5.10 mg/dL [facility] Blood 07/16/2025 9:53 AM CDT 07/16/2025 9:53 AM CDT us Faby Medina MD LAB POCT ORDERABLES - DEVIC E Final Result [facility] [address] [facility] Department of Laboratories [place], [place] [id number] * OR AN ELECTIVE ENDOTRACHEAL AIRWAY, OR AN PROCEDURE PLACEHOLDER (07/16/2025 9:14 AM CDT) Narrative Richy Britt CRNA - 07/16/2025 9:14 AM CDT Richy Britt CRNA 07/16/2025 11:34 AM Airway Patient location: OR Urgency: elective Date/time: 07/16/2025 7:51 AM Indications for airway management: anesthesia Difficult airway: no Staff: Placed by: [employer] MACHINE: Richy Britt CRNA Emergent airway documentation: Risks and benefits discussed: yes Consent obtained: yes Consent given by: patient Airway prep: Preoxygenated: yes Patient position: sniffing Mask difficulty assessment: 3 - difficult mask (inadequate, unstable or two providers) Spontaneous ventilation during airway: absent Sedation level during airway: deep Final airway details: Final airway type: endotracheal airway Tube type: ETT ETT size: 8.5 mm Cuffed: yes Technique used for successful ETT placement: video laryngoscopy Devices/Methods used in placement: intubating stylet Insertion site: oral Video blade type: Glidescope Blade size: 4 Cormack-Lehane (video): grade I - full view of glottis Cuff volume: 8 mL Cuff inflated with: air ETT to lips: 22 cm Placement verified by: auscultation and CO2 detection Airway secured with: other (pink tape) Number of attempts: 1 Additional comments: TOMAS Luciano performed intubation with Glidescope in 1 successful attempt. Due to patient's long martinez and body habitus, patient was a difficult bag mask ventilation, requiring a two handed mask and an oral airway. During the preoperative period, the patient's airway was assessed and was noted to have poor dentition and a lot of missing teeth. Patient reported having lots of tooth decay and claimed to have caps on his front teeth. Upon going to intubate the patient, prior to putting the laryngoscope blade in his mouth, we assessed the patient to have some bleeding near the left, upper side, at the front of his gums. Upon further assessment the patient seems to have an entire bridge vs. Caps and the whole right side of the bridge doesn't seem to be attached to anything to secure it in place. us Immanuel Canales MD ANESTHESIA ORDERAB LES Edited Result - Final * (ABNORMAL) POC Blood Gas and Chemistries, Arterial - (07/16/2025 8:53 AM CDT) pH, art POC 7.26(L) 7.35 - 7.45 pCO2, art POC 62(H) 35 - 45 mmHg [facility] pO2, art POC 75(L) 83 - 108 mmHg [facility] HCO3, art (Calc) POC 28 20 - 30 mmol/L [facility] Base excess, art POC 0 mmol/L [facility] Comment: Interpretive Data No reference range established. Current interpretive data was last revised 2020. O2 Sat, art (Calc) POC 92(L) 94 - 98 % [facility] Hemoglobin, art POC 12.9(L) 13.0 - 17.5 g/dL [facility] Hematocrit, art POC 38.0(L) 38.9 - 50.3 % [facility] Sodium, art POC 141 135 - 145 mmol/L [facility] Potassium, art POC 4.0 3.3 - 4.9 mmol/L [facility] Comment: Interpretive Data This method is not able to assess for hemolysis, which may falsely increase potassium concentrations. If further testing is needed to evaluate this result, consider in-laboratory plasma potassium. Current Interpretive Data was last revised on 2022. Glucose, art POC 108 70 - 199 mg/dL [facility] Ionized Calcium, art POC 4.90 4.50 - 5.10 mg/dL [facility] Blood 07/16/2025 8:53 AM CDT 07/16/2025 8:53 AM CDT Faby Medina MD LAB POCT ORDERABLES - DEVIC E Final Result Performing Organization Address [facility] Co de Phone Number [facility] [address] [place] [address] * POC Activated Clotting Time, High Range (07/16/2025 8:51 AM CDT) ACT 124 87 - 138 sec POC Device Number [id number] [facility] Blood 07/16/2025 8:51 AM CDT 07/16/2025 8:51 AM CDT Faby Medina MD LAB BLOOD ORDERABLES Final Result Performing Organization Address [facility] de Phone Number [address] [address] * Prepare RBC: 2 Units (07/16/2025 7:44 AM CDT) Units requested 2 Units requested Ready [facility] Blood 07/16/2025 7:44 AM CDT 07/16/2025 7:44 AM CDT Narrative [facility] - 07/16/2025 7:44 AM CDT Are special requirements needed? (All products are leukoreduced and CMV- safe)->No Fayb Medina MD BLOOD BANK PRODUCT ORDERABL ES Final Result Performing Organization Address [facility] de Phone Number [address] [place] [address] * Prepare RBC: 4 Units (07/16/2025 6:36 AM CDT) Units requested 4 Units requested Ready [facility] Unit Number [id number] Product code [id number] [facility] Blood Expiration Date [facility] Product Blood Type (for scanning) 6200 [facility] Product Blood Type APOS [facility] Dispense Status DISPENSED [facility] Unit Number [id number] Product code [id number] [facility] ALLEN Blood Expiration Date [id number] [facility] Product Blood Type (for scanning) 6200 [facility] Product Blood Type APONegrito LIN Dispense Status DISPENSED [facility] ALLEN Blood 07/16/2025 6:36 AM CDT 07/16/2025 6:35 AM CDT Faby Medina MD BLOOD BANK PRODUCT ORDERABL ES Final Result Performing Organization Address [facility] Co de Phone Number [facility] [address] [place] [address] * RAJESH During Case No Interp W/O Contrast [id number] (07/16/2025 6:25 AM CDT) Narrative [facility]SCV[facility]CON[facility] - 07/16/2025 6:25 AM CDT Procedure Auto Finalized by Rule: BW CV RAJESH DURING CASE OR Please see the Anesthesiologist's Procedure Note for the results. Faby Medina MD CV ECHO PROCEDURES Final Re sult Performing Organization Address [facility] Co de Phone Number [email or web address] SCIMAGE * ABO / Rh Confirmation Testing (07/16/2025 6:06 AM CDT) ABO/Rh Confirmation A Positive [facility] Blood 07/16/2025 6:06 AM CDT 07/16/2025 6:08 AM CDT Faby Medina MD LAB BLOOD ORDERABLES Final Result Performing Organization Address [facility] Co de Phone Number [facility] [address] [place] [address] [facility] * US Vein Mapping Lower Extremity Bilateral (07/15/2025 8:51 AM CDT) Anatomical Region Laterality Modality Vascular Bilateral Ultrasound 07/15/2025 8:32 AM CDT Narrative 07/15/2025 3:16 PM CDT Lower Extremity Vein Mapping Report Patient Name: WANDA ALICEA : 1980 (45y ) Sex: M Study Date: 07/15/2025 08:32:49 AM Nursing Agency Manager: Deisy De Dios RDMS,RVT Order Provider: FABY MEDINA Quality: Adequate Ref Provider: FABY MEDINA PROCEDURES: Vascular Report: A non-invasive vascular imaging study of the bilateral lower extremity was performed to map the superficial veins using B-mode ultrasound, color flow, and spectral Doppler. INDICATIONS: Z01.810 Encounter for preprocedural cardiovascular examination. HISTORY: Pre-op CABG. COMPARISONS: No prior exams. MEASUREMENTS: Right Value Left Value Rt GSV Prx Dim 5.10 mm Lt GSV Prx Dim 6.00 mm Rt GSV Mid Thigh Dim 5.00 mm Lt GSV Mid Thigh Dim 3.40 mm Rt GSV Dst Dim 5.60 mm Lt GSV Dst Dim 4.60 mm Rt GSV Calf Prx Dim 3.60 mm Lt GSV Calf Prx Dim 4.10 mm Rt GSV Calf Mid Dim 2.70 mm Lt GSV Calf Mid Dim 3.40 mm Rt GSV Calf Dst Dim 3.20 mm Lt GSV Calf Dst Dim 3.80 mm FINDINGS: Bilateral: Negative for deep vein thrombosis in the bilateral common femoral veins. Negative for superficial vein thrombosis in the lower extremities bilaterally. CONCLUSIONS: 1. Right great saphenous vein is sizeable for bypass. 2. Left great saphenous vein is sizeable for bypass. ATTESTATION: I have reviewed and interpreted the pertinent images and measurements of this study. I attest to the conclusions in the final report that is provided above. Electronically Signed By: Inocencio Echols MD 07/15/2025 2:06:19 PM CDT Procedure Note Inocencio Echols MD - 07/15/2025 Lower Extremity Vein Mapping Report Patient Name: WANDA ALICEA : 1980 (45y ) Sex: M Study Date: 07/15/2025 08:32:49 AM Nursing Agency Manager: Deisy De Dios RDMS,RVT Order Provider: FABY MEDINA Quality: Adequate Ref Provider: FABY MEDINA PROCEDURES: Vascular Report: A non-invasive vascular imaging study of the bilaterallower extremity was performed to map the superficial veins using B-mode ultrasound, colorflow, and spectral Doppler. INDICATIONS: Z01.810 Encounter for preprocedural cardiovascular examination. HISTORY: Pre-op CABG. COMPARISONS: No prior exams. MEASUREMENTS: Right Value Left Value Rt GSV Prx Dim 5.10 mm Lt GSV Prx Dim 6.00 mm Rt GSV Mid Thigh Dim 5.00 mm Lt GSV Mid Thigh Dim 3.40 mm Rt GSV Dst Dim 5.60 mm Lt GSV Dst Dim 4.60 mm Rt GSV Calf Prx Dim 3.60 mm Lt GSV Calf Prx Dim 4.10 mm Rt GSV Calf Mid Dim 2.70 mm Lt GSV Calf Mid Dim 3.40 mm Rt GSV Calf Dst Dim 3.20 mm Lt GSV Calf Dst Dim 3.80 mm FINDINGS: Bilateral: Negative for deep vein thrombosis in the bilateral commonfemoral veins. Negative for superficial vein thrombosis in the lower extremitiesbilaterally. CONCLUSIONS: 1. Right great saphenous vein is sizeable for bypass. 2. Left great saphenous vein is sizeable for bypass. ATTESTATION: I have reviewed and interpreted the pertinent images and measurements ofthis study. I attest to the conclusions in the final report that is provided above. Electronically Signed By: Inocencio Echols MD 07/15/2025 2:06:19 PM CDT us Faby Medina MD IMG US PROCEDURES Final Res ult * US Carotids Duplex Bilateral (07/15/2025 8:51 AM CDT) Anatomical Region Laterality Modality Vascular Bilateral Ultrasound 07/15/2025 8:16 AM CDT Narrative 07/15/2025 1:37 PM CDT Carotid Duplex Ultrasound Report Patient Name: WANDA ALICEA : 1980 (45y ) Study Date: 07/15/2025 8:16:41 AM Sex: M Nursing Agency Manager: Deisy De Dios RDMS,RVT Ref Provider: FABY MEDINA Quality: Adequate Order Provider: FABY MEDINA PROCEDURES: Carotid Report: Carotid duplex examination of the extracranial arteries was performed using 2D, color and spectral Doppler. Blood Pressure: Right: 136/78 mmHg. Left: 150/75 mmHg. INDICATIONS: Z01.818 Encounter for other preprocedural examination. HISTORY: Pre-op CABG. COMPARISONS: No prior exams. MEASUREMENTS: Right Value Left Value RT Prox CCA PSV 97 cm/sec LT Prox CCA PSV 154 cm/sec RT Prox CCA EDV 22 cm/sec LT Prox CCA EDV 24 cm/sec RT Distal CCA PSV 91 cm/sec LT Distal CCA PSV 104 cm/sec RT Distal CCA EDV 17 cm/sec LT Distal CCA EDV 16 cm/sec RT Prox ICA PSV 55 cm/sec LT Prox ICA PSV 75 cm/sec RT Prox ICA EDV 18 cm/sec LT Prox ICA EDV 29 cm/sec RT Mid ICA PSV 115 cm/sec LT Mid ICA PSV 105 cm/sec RT Mid ICA EDV 49 cm/sec LT Mid ICA EDV 35 cm/sec RT Distal ICA PSV 72 cm/sec LT Distal ICA PSV 110 cm/sec RT Distal ICA EDV 27 cm/sec LT Distal ICA EDV 43 cm/sec RT ECA Prx PSV 143 cm/sec LT ECA Prx PSV 158 cm/sec Rt Vert PSV 77 cm/sec Lt Vert PSV 84 cm/sec FINDINGS: Rt Common Carotid Artery: Duplex imaging of the right common carotid artery is within normal limits without evidence of atherosclerotic disease. Rt Internal Carotid Artery: The plaque in the right internal carotid artery appears to be heterogeneous and smooth. Atherosclerotic changes of the right internal carotid artery without hemodynamically significant Doppler findings. <50% stenosis. Rt External Carotid Artery: The right external carotid artery is patent without evidence of atherosclerotic plaque. Rt Vertebral Artery: The right vertebral artery is patent with antegrade flow. Lt Common Carotid Artery: Duplex imaging of the left common carotid artery is within normal limits without evidence of atherosclerotic disease. Lt Internal Carotid Artery: The plaque in the left internal carotid artery appears to be heterogeneous and smooth. Atherosclerotic changes of the left internal carotid artery without hemodynamically significant Doppler findings. <50% stenosis. Lt External Carotid Artery: The left external carotid artery is patent without evidence of atherosclerotic plaque. Lt Vertebral Artery: The left vertebral artery is patent with antegrade flow. CONCLUSIONS: 1. No evidence of hemodynamically significant disease of the bilateral extracranial carotid system. 2. Normal, antegrade flow is noted in bilateral vertebral arteries. ATTESTATION: I have reviewed and interpreted the pertinent images and measurements of this study. I attest to the conclusions in the final report that is provided above. Electronically Signed By: Inocencio Echols MD 07/15/2025 12:53:17 PM CDT Procedure Note Inocencio Echols MD - 07/15/2025 Carotid Duplex Ultrasound Report Patient Name: WANDA ALICEA : 1980 (45y ) Study Date: 07/15/2025 8:16:41 AM Sex: M Nursing Agency Manager: Deisy De Dios RDMS,T Ref Provider: FABY MEDINA Quality: Adequate Order Provider: FBAY MEDINA PROCEDURES: Carotid Report: Carotid duplex examination of the extracranial arterieswas performed using 2D, color and spectral Doppler. Blood Pressure: Right: 136/78 mmHg. Left: 150/75 mmHg. INDICATIONS: Z01.818 Encounter for other preprocedural examination. HISTORY: Pre-op CABG. COMPARISONS: No prior exams. MEASUREMENTS: Right Value Left Value RT Prox CCA PSV 97 cm/sec LT Prox CCA PSV 154 cm/sec RT Prox CCA EDV 22 cm/sec LT Prox CCA EDV 24 cm/sec RT Distal CCA PSV 91 cm/sec LT Distal CCA PSV 104 cm/sec RT Distal CCA EDV 17 cm/sec LT Distal CCA EDV 16 cm/sec RT Prox ICA PSV 55 cm/sec LT Prox ICA PSV 75 cm/sec RT Prox ICA EDV 18 cm/sec LT Prox ICA EDV 29 cm/sec RT Mid ICA PSV 115 cm/sec LT Mid ICA PSV 105 cm/sec RT Mid ICA EDV 49 cm/sec LT Mid ICA EDV 35 cm/sec RT Distal ICA PSV 72 cm/sec LT Distal ICA PSV 110 cm/sec RT Distal ICA EDV 27 cm/sec LT Distal ICA EDV 43 cm/sec RT ECA Prx PSV 143 cm/sec LT ECA Prx PSV 158 cm/sec Rt Vert PSV 77 cm/sec Lt Vert PSV 84 cm/sec FINDINGS: Rt Common Carotid Artery: Duplex imaging of the right common carotidartery is within normal limits without evidence of atherosclerotic disease. Rt Internal Carotid Artery: The plaque in the right internal carotidartery appears to be heterogeneous and smooth. Atherosclerotic changes of the right internalcarotid artery without hemodynamically significant Doppler findings. <50% stenosis. Rt External Carotid Artery: The right external carotid artery is patentwithout evidence of atherosclerotic plaque. Rt Vertebral Artery: The right vertebral artery is patent with antegradeflow. Lt Common Carotid Artery: Duplex imaging of the left common carotid arteryis within normal limits without evidence of atherosclerotic disease. Lt Internal Carotid Artery: The plaque in the left internal carotid arteryappears to be heterogeneous and smooth. Atherosclerotic changes of the left internalcarotid artery without hemodynamically significant Doppler findings. <50% stenosis. Lt External Carotid Artery: The left external carotid artery is patentwithout evidence of atherosclerotic plaque. Lt Vertebral Artery: The left vertebral artery is patent with antegradeflow. CONCLUSIONS: 1. No evidence of hemodynamically significant disease of the bilateralextracranial carotid system. 2. Normal, antegrade flow is noted in bilateral vertebral arteries. ATTESTATION: I have reviewed and interpreted the pertinent images and measurements ofthis study. I attest to the conclusions in the final report that is provided above. Electronically Signed By: Inocencio Echols MD 07/15/2025 12:53:17 PM CDT us Faby Medina MD IMG US PROCEDURES Final Res ult * Urinalysis reflex to microscopic and culture Urine (07/08/2025 11:16 AM CDT) Color, ur Yellow Yellow Clarity, ur Clear Clear [facility] Specific gravity, ur 1.022 1.003 - 1.030 [facility] pH, urine 6.0 [facility] Comment: Interpretive Data U rine pH is affected by diet, medications, systemic acid-base disturbances, and renal tubular function. pH may affect urinary stone formation. For example, urine pH below 6.0 may help reduce the tendency for calcium phosphate stones and pH greater than 6.0 may reduce the tendency for uric acid stone formation. Source: [facility] Current Interpretive Data was last revised on 2017 Protein, ur ql Negative Negative [facility] Glucose, ur ql Negative Negative [facility] Ketones, ur Negative Negative [facility] Bilirubin, ur Negative Negative [facility] Blood, ur Negative Negative [facility] Urobilinogen, ur <2.0 <2.0 mg/dL [facility] Nitrite, ur Negative Negative [facility] Leukocyte esterase, ur Negative Negative [facility] UA reflex comment Reflex conditions for microscopic UA and culture not met. [facility] Urine 07/08/2025 11:1 6 AM CDT 07/08/2025 11:38 AM CDT Sabrina Arzate NP LAB MICROBIOLOGY - G ENERAL ORDERABLES Final Result [facility] [address] [facility] Department of Laboratories [place], [place] [id number] * X-ray chest 2 views (07/08/2025 10:28 AM CDT) Anatomical Region Laterality Modality Body, Chest N/A Computed Radiogr aphy 2025 3:56 PM CDT Narrative 2025 3:57 PM CDT EXAM DESCRIPTION: XR CHEST PA LATERAL 2 VIEWS REASON FOR STUDY: Pre-op, prior normal test < 1 yr Pre Op testing for cardiac bypass on 07/16/25 for blockages. No other medical conditions known. Clavicle repair >10yrs ago TECHNIQUE: There are 2 radiographic view(s) of the chest. COMPARISON: No prior. FINDINGS: LUNGS: Pulmonary vasculature appears normal. No confluent infiltrate or effusion. Costophrenic angles are sharp. HEART/MEDIASTINUM: Cardiac silhouette normal in size. Mediastinal and hilar contours appear normal. LINES/TUBES: None. BONES: Prior ORIF left clavicle without complication. No acute osseous findings. Trivial spondylosis thoracic spine. IMPRESSION: No acute cardiopulmonary abnormality. THIS IS AN ELECTRONICALLY VERIFIED FINAL REPORT 2025 3:57 PM - Electronically signed by Vijay Valdovinos M.D. MJ T: Report ID: [id number] Reading Location: [id number] Procedure Note Vijay Valdovinos MD - 2025 EXAM DESCRIPTION: XR CHEST PA LATERAL 2 VIEWS REASON FOR STUDY: Pre-op, prior normal test < 1 yr Pre Op testing for cardiac bypass on 07/16/25 for blockages. No othermedical conditions known. Clavicle repair >10yrs ago TECHNIQUE: There are 2 radiographic view(s) of the chest. COMPARISON: No prior. FINDINGS: LUNGS: Pulmonary vasculature appears normal. No confluent infiltrate or effusion. Costophrenic angles are sharp. HEART/MEDIASTINUM: Cardiac silhouette normal in size. Mediastinal andhilar contours appear normal. LINES/TUBES: None. BONES: Prior ORIF left clavicle without complication. No acute osseous findings. Trivial spondylosis thoracic spine. IMPRESSION: No acute cardiopulmonary abnormality. THIS IS AN ELECTRONICALLY VERIFIED FINAL REPORT 2025 3:57 PM - Electronically signed by Vijay Valdovinos M.D. MJ T: Report ID: [id number] Reading Location: [id number] Fabien Galeas PRICE LISTER IMG XR PROCEDURES Final Re sult * eGFR (07/08/2025 10:16 AM CDT) eGFR >90 >=60 mL/min/1. 73 m2 Comment: Interpretive Data Reference Interval Normal >/= 90 mL/min/1.73m2 Mildly decreased* 60 - 89 mL/min/1.73m2 Mildly to moderately decreased 45 - 59 mL/min/1.73m2 Moderately to severely decreased 30 - 44 mL/min/1.73m2 Severely decreased 15 - 29 mL/min/1.73m2 Kidney Failure < 15 mL/min/1.73m2 *Relative to young adult level Estimated glomerular filtration rate is determined by the 2020 CKD-EPI equation recommended by the National [employer] (A Unifying Approach to GFR Estimation: Recommendations of the NKF-ASK Task Force on Reassessing the Inclusion of Race in Diagnosing Kidney Disease, JASN 2020). The CKD-EPI equation should not be used for patients with unstable renal function and has not been validated in children and those over 70. Current interpretive data was last reviewed 2021. Blood 07/08/2025 10:1 6 AM CDT 07/08/2025 10:22 AM CDT Faby Medina MD LAB BLOOD ORDERABLES Final Result [facility] [address] [facility] [place] [address] * (ABNORMAL) Differential, auto (07/08/2025 10:16 AM CDT) Neutrophil abs 8.56(H) 1.50 - 6.50 K/cumm Imm gran abs 0.05 0.00 - 0.10 K/cumm [facility] Lymphocyte abs 1.91 0.80 - 3.30 K/cumm [facility] Monocyte abs 0.53 0.20 - 0.80 K/cumm [facility] Eosinophil abs 0.31 0.00 - 0.50 K/cumm [facility] Basophil abs 0.07 0.00 - 0.10 K/cumm [facility] Neutrophil pct 75.0 % [facility] Comment: Interpretive Data Percent cell count reference ranges are not reported, since discordance with absolute values may lead to misinterpretation of CBC data. Current Interpretive Data was last revised on 2018. Imm gran pct 0.4 % [facility] Comment: Interpretive Data Percent cell count reference ranges are not reported, since discordance with absolute values may lead to misinterpretation of CBC data. Current Interpretive Data was last revised on 2018. Lymphocyte pct 16.7 % [facility] Comment: Interpretive Data Percent cell count reference ranges are not reported, since discordance with absolute values may lead to misinterpretation of CBC data. Current Interpretive Data was last revised on 2018. Monocyte pct 4.6 % [facility] Comment: Interpretive Data Percent cell count reference ranges are not reported, since discordance with absolute values may lead to misinterpretation of CBC data. Current Interpretive Data was last revised on 2018. Eosinophil pct 2.7 % [facility] Comment: Interpretive Data Percent cell count reference ranges are not reported, since discordance with absolute values may lead to misinterpretation of CBC data. Current Interpretive Data was last revised on 2018. Basophil pct 0.6 % [facility] Comment: Interpretive Data Percent cell count reference ranges are not reported, since discordance with absolute values may lead to misinterpretation of CBC data. Current Interpretive Data was last revised on 2018. Blood 07/08/2025 10:1 6 AM CDT 07/08/2025 10:22 AM CDT us Faby Medina MD LAB BLOOD ORDERABLES Final Result DELIA ALLEN [address] [facility] [place] [address] * (ABNORMAL) CBC with auto differential (07/08/2025 10:16 AM CDT) [facility] WBC 11.43(H) 3.80 - 9.90 K/cumm Hgb 12.9(L) 13.0 - 17.5 g/dL [facility] Hct 39.7 38.9 - 50.3 % [facility] Plt 244 150 - 400 K/cumm [facility] MPV 10.4 9.1 - 12.3 fL [facility] RBC 4.50 4.30 - 5.80 M/cumm [facility] MCV 88.2 81.3 - 96.4 fL [facility] MCH 28.7 27.1 - 33.3 pg [facility] MCHC 32.5 32.3 - 35.7 g/dL [facility] RDW CV 13.3 11.1 - 14.9 % [facility] RDW SD 43.2 35.7 - 48.1 fL [facility] NRBC abs 0.00 0.00 - 0.01 K/cumm [facility] Blood 07/08/2025 10:1 6 AM CDT 07/08/2025 10:22 AM CDT Faby Medina MD LAB BLOOD ORDERABLES Final Result [facility] [address] [facility] [place] [address] * MRSA Only (Staphylococcus aureus) PCR Nasal (07/08/2025 10:16 AM CDT) [facility] PCR Scrn, Methicillin resistant Staphylococcus aureus (MRSA) Not Detected Not Detected Comment: Interpretive Data Testing performed using Nucleic Acid Amplification with the groSolar Xpert MRSA NxG Assay. This assay detects target DNA from mecA, mecC and the SCCmec insertion site of Staphylococcus aureus using Real-Time PCR and has been cleared by the FDA. Performance characteristics have been verified by the [facility]. Current Interpretive Data was last revised on 2023 Nasal 07/08/2025 10:1 6 AM CDT 07/08/2025 10:21 AM CDT Fabien Galeas NP LAB MICROBIOLOGY - GENERAL ORDERABLES Final Result Performing Organization Address [facility] de Phone Number [address] [address] * ABO/Rh (07/08/2025 10:16 AM CDT) ABO/Rh A Positive Blood 07/08/2025 10:1 6 AM CDT 07/08/2025 10:22 AM CDT Narrative DELIA - 07/08/2025 10:59 AM CDT Is this test being ordered in advance for a procedure?->Yes Expected date of procedure:->07/16/25 Has the patient been transfused in the past 3 months?->No Faby Medina MD LAB BLOOD BANK TEST ORDERAB LES Final Result Performing Organization Address [facility] de Phone Number [address] [address] * aPTT (07/08/2025 10:16 AM CDT) Pathologist [facility] aPTT 28 22 - 37 sec Comment: Interpretive data aPTT test has not been evaluated for monitoring heparin therapy. The anti-Xa is the preferred test. Current interpretive data was last revised on 2019. Blood 07/08/2025 10:1 6 AM CDT 07/08/2025 10:22 AM CDT Faby Medina MD LAB BLOOD ORDERABLES Final Result Performing Organization Address [facility] de Phone Number [address] [place] [address] * Protime-INR (07/08/2025 10:16 AM CDT) PT 13.90 12.00 - 14.60 sec INR 1.06 0.90 - 1.20 [facility] Comment: Interpretive data Oral anticoagulant therapeutic ranges: Venous thromboembolism prophylaxis or treatment: 2.0-3.0 CARDIOLOGY Standard range: 2.0-3.0 High-intensity range: 2.5-3.5 Refer to indication-specific guidelines for appropriate target ranges for prosthetic heart valve replacement. Current interpretive data was last revised on 2019. Blood 07/08/2025 10:1 6 AM CDT 07/08/2025 10:22 AM CDT Faby Medina MD LAB BLOOD ORDERABLES Final Result Performing Organization Address [facility] de Phone Number [address] [place] [address] * Crossmatch (07/08/2025 10:16 AM CDT) Crossmatch Compatible [facility] Unit number for crossmatch [id number] [facility] Crossmatch Compatible [facility] Unit number for crossmatch [id number] [facility] Blood 07/08/2025 10:1 6 AM CDT 07/08/2025 10:22 AM CDT Result [facility] Faby Medina MD LAB BLOOD BANK TEST ORDERAB LES Final Result Performing Organization Address [facility] de Phone Number [address] [place] [address] * Antibody screen (07/08/2025 10:16 AM CDT) Rosa, indirect, Gel Interpretation Negative ABSC Blood 07/08/2025 10:1 6 AM CDT 07/08/2025 10:22 AM CDT Narrative [facility] - 07/08/2025 10:59 AM CDT Is this test being ordered in advance for a procedure?->Yes Expected date of procedure:->07/16/25 Has the patient been transfused in the past 3 months?->No Faby Medina MD LAB BLOOD BANK TEST ORDERAB LES Final Result Performing Organization Address [facility] de Phone Number [address] [place] [address] * Hemoglobin A1c (07/08/2025 10:16 AM CDT) Hgb A1C 5.6 4.0 - 5.6 % Estimated Average Glucose 114 mg/dL [facility] Comment: The ADA recommends reporting an estimated Average Glucose (eAG) with all Hemoglobin A1c results using the equation derived from a study of 507 normal and diabetic adults. Minority populations were underrepresented and children were not included. (Diabetes Care 31:9699-1212, 2008). The eAG is not equivalent to a fasting glucose. Blood 07/08/2025 10:1 6 AM CDT 07/08/2025 10:22 AM CDT Faby Medina MD LAB BLOOD ORDERABLES Final Result [facility] [address] [place] [address] * (ABNORMAL) Comprehensive metabolic panel (07/08/2025 10:16 AM CDT) Pathologist [facility] Sodium 137 135 - 145 mmol/L Potassium, pl 3.6 3.3 - 4.9 mmol/L [facility] Chloride 105 97 - 110 mmol/L [facility] CO2 24 22 - 32 mmol/L [facility] Anion gap 8 2 - 15 mmol/L [facility] BUN 11 6 - 25 mg/dL [facility] Creatinine 0.73(L) 0.80 - 1.30 mg/dL [facility] Glucose 114 70 - 199 mg/dL [facility] Comment: Interpretive Data Fasting glucose >/= 126 mg/dl is diagnostic for diabetes. Fasting is defined as no caloric intake for at least 8 hours. Fasting glucose between 100 mg/dl to 125 mg/dl is diagnostic of prediabetes. In a patient with classic symptoms of hyperglycemia or hyperglycemic crisis, a random glucose >/= 200 mg/dl is diagnostic for diabetes. In the absence of unequivocal hyperglycemia, results should be confirmed by repeat testing. The classification and Diagnosis of Diabetes Diabetes Care 2021; 46: S19-S40. Current interpretive data was last revised 2022. Calcium 9.2 8.5 - 10.3 mg/dL [facility] Bilirubin, total 0.4 0.1 - 1.2 mg/dL [facility] Protein, pl 7.0 6.5 - 8.5 g/dL [facility] Albumin 3.7 3.5 - 5.0 g/dL [facility] Alk phos 119 40 - 130 Units/L [facility] ALT 40 7 - 55 Units/L [facility] AST 36 10 - 50 Units/L [facility] Blood 07/08/2025 10:1 6 AM CDT 07/08/2025 10:22 AM CDT Faby Medina MD LAB BLOOD ORDERABLES Final Result Performing Organization Address City/[facility] Co de Phone Number [facility] [address] [facility] Department [place] [address] * ECG 12 lead (07/08/2025 10:03 AM CDT) Pathologist [facility] Ventricular Rate EKG/Min 81 BPM [facility] Atrial Rate 81 BPM [facility] OR-Interval (MSEC) 154 ms [facility] QRS-Interval (MSEC) 100 ms [facility] QT-Interval (MSEC) 368 ms [facility] QTc 427 ms [facility] P [place] 34 degrees [facility] R [place] 163 degrees [facility] T [place] 72 degrees [facility] Diagnosis Normal sinus rhythm Right axis deviation Abnormal ECG No previous ECGs available Confirmed by JANELLE COBB M.D. ([id number]) on 07/08/2025 12:07:43 PM [facility] 07/08/2025 10:0 3 AM CDT 07/08/2025 12:07 PM CDT Faby Medina MD ECG ORDERABLES Final Resul t Performing Organization Address [facility] Co de Phone Number [facility] * TRANSTHORACIC ECHO (TTE) COMPLETE W DOPPLER/CF WO CONTRAST (07/08/2025 9:00 AM CDT) Estimated EF 60-65 % CONS SCIMAGE EF Mod BP 61 % CONS SCIMAGE Anatomical Region Laterality Modality Ultrasound 07/08/2025 8:27 AM CDT Narrative 07/08/2025 9:52 AM CDT Transthoracic Echocardiographic Report Patient Name: WANDA ALICEA : 1980 (44y 11m) Sex: M Study Date: 07/08/2025 08:27:57 AM Ht(Inch): 74 Wt(Lb): 352.01 BSA: 2.89 Nursing Agency Manager: Melita Polanco RDCS Order Provider: FABY MEDINA Heart Rate: 85 BMI: 45.19 BP: 135 / 88 Ref Provider: FABY MEDINA PROCEDURES: Echocardiographic Report: ([id number]) Transthoracic complete echo, 2D, spectral and tissue Doppler, color flow Doppler, M-mode. Contrast: Patient refused contrast. Technically difficult study due to: Technically difficult study due to Body Habitus/ current smoker. INDICATIONS: Pre [address] bypass and Coronary artery disease, ho-chunk vessel. FINDINGS: Left Ventricle: Normal left ventricular systolic function. The Ejection Fraction (Gayle's) is measured at 61 %. The Ejection Fraction is visually estimated to be 60-65 %. Diastolic Function Left ventricular diastolic parameters are consistent with Grade II diastolic dysfunction (increased mean LA pressure). Regional Wall Motion: no obvious regional wall motion abnormalities noted Right Ventricle: Normal right ventricular size. Normal right ventricular systolic function. Left Atrium: The left atrium is normal in size. Right Atrium: The right atrium is normal in size. Mitral Valve: No mitral regurgitation seen. Aortic Valve: No aortic regurgitation seen. No aortic valve stenosis. The mean transaortic gradient is 9 mmHg. The aortic valve area by the continuity equation (using Peak Marvin) is 2.4 cm2. Tricuspid Valve: There is trace tricuspid regurgitation. PASP cannot be evaluated due to lack of adequate TR jet. Pulmonic Valve: The pulmonic valve demonstrates normal leaflet structure. Pericardium: Trivial pericardial effusion. Aorta: Normal aortic root. IVC: IVC Not well visualized due to poor echo windows. CONCLUSIONS: 1. Normal left ventricular systolic function. The Ejection Fraction (Gayle's) is measured at 61 %. The Ejection Fraction is visually estimated to be 60-65 %. 2. Normal right ventricular size. Normal right ventricular systolic function. 3. The left atrium is normal in size. 4. The right atrium is normal in size. 5. No mitral regurgitation seen. 6. No aortic regurgitation seen. No aortic valve stenosis. The mean transaortic gradient is 9 mmHg. The aortic valve area by the continuity equation (using Peak Marvin) is 2.4 cm2. 7. There is trace tricuspid regurgitation. PASP cannot be evaluated due to lack of adequate TR jet. 8. Trivial pericardial effusion. MEASUREMENTS: 2D/MM Value Range Doppler Value LVIDd 2D 5.87 cm [ 3.50 - 5.70 ] AV Peak Marvin 2.09 m/s LVIDs 2D 4.50 cm [ 3.10 - 4.60 ] AV Peak PG 17.47 mmHg IVSd 2D 1.28 cm [ 0.60 - 1.20 ] AV Mean PG 9.00 mmHg LVPWd 2D 1.00 cm [ 0.60 - 1.10 ] AV VTI 38.60 cm LV Thickness Ratio 1.28 LVOT Peak Marvin 1.45 m/s LV Mass 2D 289.19 g LVOT Peak PG 8.41 mmHg LV Mass Index 2D 100.16 g/m2 LVOT Mean PG 4.00 mmHg RWT 0.34 LVOT VTI 28.20 cm EDV Mod BP 160.00 ml [ 62.00 - 150.00 ] LVOT Diam 2.10 cm LV EDV Index 55.42 ml/m2 SV LVOT 98.00 cm3 ESV Mod BP 62.00 ml [ 21.00 - 61.00 ] RON VTI 2.53 cm2 EF Mod BP 61 % [ 52 - 72 ] RON Vmax 2.40 cm2 Visually Estimated EF 60-65 % LVOT/AV VTI 0.73 - Dimensionless index (DVI) LA Dimension 2D 3.80 cm [ 1.90 - 4.00 ] MV E Peak Marvin 1.15 m/s LA Volume BP 86.00 ml MV A Peak Marvin 0.77 m/s LA Volume Index 29.79 ml/m2 [ 16.00 - 34.00 ] MV E/A 1.50 ratio TAPSE 2.14 cm [ 1.71 - 5.00 ] MV Decel Time 155.00 msec AoR Diam 2D 3.30 cm [ 2.00 - 3.70 ] Med E` Marvin 0.09 m/s Ao Root Index 1.14 cm/m2 [ 1.00 - 2.00 ] Lat E` Marvin 0.08 m/s Average E/E` 1352.94 TV Peak Marvin 0.63 m/s TV Peak PG 1.59 mmHg RV S` 14.80 cm/sec PV Peak Marvin 1.43 m/s PV Peak PG 8.18 mmHg - ATTESTATION: I have reviewed and interpreted the pertinent images and measurements of this study. I attest to the conclusions in the final report that is provided above. DISCLAIMER: The study images and the final report will be retained in the patient chart by the [facility] for the legally required time period. This chart constitutes the legal record of any testing performed. Electronically Signed By: Bernardo Fink MD 07/08/2025 9:51:47 AM CDT Procedure Note Bernardo Fink MD - 07/08/2025 Transthoracic Echocardiographic Report Patient Name: WANDA ALICEA : 1980 (44y 11m) Sex: M Study Date: 07/08/2025 08:27:57 AM Ht(Inch): 74 Wt(Lb): 352.01 BSA: 2.89 Nursing Agency Manager: Melita Polanco FRAN Order Provider: FABY MEDINA Heart Rate: 85 BMI: 45.19 BP: 135 / 88 Ref Provider: FABY MEDINA PROCEDURES: Echocardiographic Report: ([id number]) Transthoracic complete echo, 2D,spectral and tissue Doppler, color flow Doppler, M-mode. Contrast: Patient refused contrast. Technically difficult study due to: Technically difficult study due toBody Habitus/ current smoker. INDICATIONS: Pre [address] bypass and Coronary artery disease, ho-chunk vessel. FINDINGS: Left Ventricle: Normal left ventricular systolic function. The EjectionFraction (Gayle's) is measured at 61 %. The Ejection Fraction is visuallyestimated to be 60-65 %. Diastolic Function Left ventricular diastolic parameters are consistentwith Grade II diastolic dysfunction (increased mean LA pressure). Regional Wall Motion: no obvious regional wall motion abnormalitiesnoted Right Ventricle: Normal right ventricular size. Normal right ventricularsystolic function. Left Atrium: The left atrium is normal in size. Right Atrium: The right atrium is normal in size. Mitral Valve: No mitral regurgitation seen. Aortic Valve: No aortic regurgitation seen. No aortic valve stenosis. Themean transaortic gradient is 9 mmHg. The aortic valve area by the continuityequation (using Peak Marvin) is 2.4 cm2. Tricuspid Valve: There is trace tricuspid regurgitation. PASP cannot beevaluated due to lack of adequate TR jet. Pulmonic Valve: The pulmonic valve demonstrates normal leafletstructure. Pericardium: Trivial pericardial effusion. Aorta: Normal aortic root. IVC: IVC Not well visualized due to poor echo windows. CONCLUSIONS: 1. Normal left ventricular systolic function. The Ejection Fraction(Gayle's) is measured at 61 %. The Ejection Fraction is visually estimated to be 60-65%. 2. Normal right ventricular size. Normal right ventricular systolicfunction. 3. The left atrium is normal in size. 4. The right atrium is normal in size. 5. No mitral regurgitation seen. 6. No aortic regurgitation seen. No aortic valve stenosis. The meantransaortic gradient is 9 mmHg. The aortic valve area by the continuity equation (using PeakVel) is 2.4 cm2. 7. There is trace tricuspid regurgitation. PASP cannot be evaluated due tolack of adequate TR jet. 8. Trivial pericardial effusion. MEASUREMENTS: 2D/MM Value Range DopplerValue LVIDd 2D 5.87 cm [ 3.50 - 5.70 ] AV Peak Vel2.09 m/s LVIDs 2D 4.50 cm [ 3.10 - 4.60 ] AV Peak PG17.47 mmHg IVSd 2D 1.28 cm [ 0.60 - 1.20 ] AV Mean PG9.00 mmHg LVPWd 2D 1.00 cm [ 0.60 - 1.10 ] AV VTI38.60 cm LV Thickness Ratio 1.28 LVOT PeakVel 1.45 m/s LV Mass 2D 289.19 g LVOT Peak PG8.41 mmHg LV Mass Index 2D 100.16 g/m2 LVOT Mean PG4.00 mmHg RWT 0.34 LVOT VTI28.20 cm EDV Mod BP 160.00 ml [ 62.00 - 150.00 ] LVOT Diam2.10 cm LV EDV Index 55.42 ml/m2 SV LVOT98.00 cm3 ESV Mod BP 62.00 ml [ 21.00 - 61.00 ] RON VTI2.53 cm2 EF Mod BP 61 % [ 52 - 72 ] RON Vmax2.40 cm2 Visually Estimated EF 60-65 % LVOT/AV VTI0.73 - Dimensionless index (DVI) LA Dimension 2D 3.80 cm [ 1.90 - 4.00 ] MV E PeakVel 1.15 m/s LA Volume BP 86.00 ml MV A PeakVel 0.77 m/s LA Volume Index 29.79 ml/m2 [ 16.00 - 34.00 ] MV E/A1.50 ratio TAPSE 2.14 cm [ 1.71 - 5.00 ] MV DecelTime 155.00 msec AoR Diam 2D 3.30 cm [ 2.00 - 3.70 ] Med E` Vel0.09 m/s Ao Root Index 1.14 cm/m2 [ 1.00 - 2.00 ] Lat E` Vel0.08 m/s Average E/E` 1352.94 TV Peak Marvin 0.63 m/s TV Peak PG 1.59 mmHg RV S` 14.80 cm/sec PV Peak Marvin 1.43 m/s PV Peak PG 8.18 mmHg - ATTESTATION: I have reviewed and interpreted the pertinent images and measurements ofthis study. I attest to the conclusions in the final report that is provided above. DISCLAIMER: The study images and the final report will be retained in the patientchart by the Echo Laboratory for the legally required time period. This chart constitutesthe legal record of any testing performed. Electronically Signed By: Bernardo Fink MD 07/08/2025 9:51:47 AM CDT Faby Medina MD CV ECHO PROCEDURES Final Re sult * IR Outside Reference (06/30/2025 9:53 AM CDT) Impressions [facility] - 06/30/2025 9:53 AM CDT These images are for Reference purposes only and have not been reviewed by [facility] Radiology. There will be no report generated by a [facility] Radiologist. Narrative [facility] - 06/30/2025 9:53 AM CDT EXAMINATION: Images For Reference Purposes Only us Faby Medina MD IMG IR PROCEDURES Final Res ult [id number] * Cardiology Document Scan (06/07/2025 9:42 AM CDT) Anatomical Region Laterality Modality Other us Aaron Em MD CV CARDIAC SERVICES PROCEDURES F inal Result * SCAN - LABS (06/07/2025) us Provider Scanning Final Result * Cardiology Document Scan (06/07/2025) Anatomical Region Laterality Modality Other us Provider Scanning CV CARDIAC SERVICES PROCEDURES Final Result from Last 3 Months Insurance ANTHEM ACCESS ANTHEM ACCESS Advance Directives For more information, please contact: [phone] * Full Code (Latest Code Status on File) Date Activated Date Inactivated Comments 07/16/2025 1:21 PM 07/20/2025 9:28 PM Care Teams Manager Ems Relationship Specialty Start Date End Date Samy Hendrickson MD [address] [place] [address] PCP - General Family Medicine 02/22/25 Vijay Saravia MD [address] [address] Consulting Physician Cardiology 07/08/25
--- OUTSIDE RECORDS SUMMARY | 2025-08-22 09:10 | XMS_ITS | Encounter Summary ---
Author Organization [facility] Healthcare Address [address] [place] [address] Care Team Providers Care Membership Assistant Name Role Phone Samy Hendrickson MD Primary Care Provider [phone] Vijay Saravia MD Unavailable [phone] Encounter Details Date Type Department Care Team (Late st Contact Info) Description 01/13/2025 Orders Only [facility] [facility] Information Management [address] [place] [id number] Scanning, Provider Social History Tobacco Use Types Packs/Day Years Used Date Smoking Tobacco: Never Assessed Sex and Gender Information Value Date Recorded Sex Assigned at Not on file Legal Sex Male 12:00 PM CDT Gender Identity Not on file Sexual Orientation Not on file documented as of this encounter Plan of Treatment Not on file documented as of this encounter Procedures Procedure Name Priority Date/Time Associated Diagnosis Comments CARDIOLOGY DOCUMENT SCAN 01/13/2025 documented in this encounter Results * Cardiology Document Scan (01/13/2025) Anatomical Region Laterality Modality Other Provider Scanning CV CARDIAC SERVICES PROCEDURES Final Result documented in this encounter Visit Diagnoses Not on filedocumented in this encounter Additional Health Concerns Infection Onset Date Last Indicated Resolved Time 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 This flag is used to identify patient who are being monitored by Infection Prevention. - Raghav LUCERO, RN 07/23/25 07/20/25: Patient has been identified as part of ring surveillance efforts in regard to c.auris. Patient may require a screening swab. No additional isolation precautions are necessary with this flag/n.moll 07/20/2025 07/20/2025 07/27/2025 7:26 PM CDT documented as of this encounter Care Teams Membership Assistant Relationship Specialty Start Date End Date Samy Hendrickson MD [address] [place] [address] PCP - General Family Medicine 02/22/25 Vijay Saravia MD [address] [address] Consulting Physician Cardiology 07/08/25 documented as of this encounter
[2025-08-22 09:13] VITALS: BP 190/111; PULSE 77; RESP 20; TEMP 36.4; O2SAT 98
--- NOTE | 2025-08-22 09:13 | ECG_ITS ---
Test Date: 2025-08-22 09:18:29 Measurements Intervals Falcon Rate: 76 P: 37 NH: 172 QRS: 103 QRSD: 101 T: 29 QT: 353 QTc: 398 Interpretive Statements SINUS RHYTHM RIGHT AXIS DEVIATION [QRS AXIS > 100] INCOMPLETE RIGHT BUNDLE BRANCH BLOCK [90+ ms QRS DURATION, TERMINAL R IN V1/V2, 40+ ms S IN I/aVL/V4/V5/V6] MODERATE T-WAVE ABNORMALITY, CONSIDER LATERAL ISCHEMIA [-0.1+ mV T-WAVE IN I/aVL/V5/V6] MODERATE T-WAVE ABNORMALITY, CONSIDER INFERIOR ISCHEMIA [-0.1+ mV T-WAVE IN II/aVF] ABNORMAL ECG Compared to ECG 12/19/2024 20:29:41 T-wave abnormality now present Possible ischemia now present Electronically Signed On 08-22-2025 13:07:56 EMBEDDED ENGINEER by Immanuel Li M.D.
[2025-08-22 09:19] VITALS: PULSE 76; O2SAT 97
[2025-08-22 09:24] LABS: Hematocrit 38.8 % (42.0-52.0); Hemoglobin 11.9 g/dL (14.0-18.0); Immature Granulocyte Percent A 0.2 % (0-0.5); Lymphocytes Absolute Auto 1.73 K/mm3 (0.9-3.2); Mean Corpuscular HGB Conc 30.7 g/dl (32-36); Mean Corpuscular Hemoglobin 27.1 pg (26-34); Mean Corpuscular Volume 88.4 fl (80-100); Nucleated Red Blood Cells Absolute Auto 0.000 K/mm3 (0.0-0.012); Nucleated Red Blood Cells Perc 0.0 % (0.0-0.2); Platelet Count Result 293 k/mm3 (150-375); Red Blood Count 4.39 M/mm3 (4.6-6.20); White Blood Count 10.4 K/mm3 (4.5-10.0)
--- NOTE | 2025-08-22 09:28 | ED.GENADULT ---
HPI - General Adult General Chief complaint: Shortness of Breath/Dyspnea Stated complaint: SOB-double bipass July 16 Time Seen by Provider: 08/22/25 09:12 History of Present Illness HPI narrative: 45-year-old male presenting to the emergency department for evaluation for increased shortness breath. Patient does have history of CHF and coronary disease. Patient did have a quadruple bypass done at [facility] in [place] on July 16. Patient states he has lost weight after being started on diuretic. Patient states that when takes a deep breath he does have some chest pain but this has been the same since surgery and has not worsened. Patient states last night he began having some increased difficulty with breathing and was concerned that he may be retaining fluid. Patient has been weighing himself and denies any recent weight gain. Patient states when he was lying flat last night he did have increased shortness of breath and was measuring his pulse ox home and stated it dipped into the 80s. Patient is lying an a reclined position in the ED, same position at states was causing issues last night and patient as stable at 98% on room air. patient has been recovering and a friend's home and did spend some time in his own home yesterday states that he has quit smoking but they house has not cleaned after he quit smoking and patient was concerned that perhaps the particular from his previous smoking was irritating his lungs. Related Data Home Medications ?Medication ?Instructions ?Recorded ?Confirmed ?Last Taken ?Type aspirin 81 mg tablet,delayed 81 mg PO DAILY 06/07/25 07/30/25 06/06/25 History release (Adult Low Dose Aspirin) clopidogrel 75 mg tablet mg PO DAILY 07/30/25 07/30/25 Unknown History gabapentin 300 mg capsule mg PO TID PRN 07/30/25 07/30/25 Unknown History methocarbamol 750 mg tablet mg PO ONCE PRN 07/30/25 07/30/25 Unknown History metoprolol tartrate 50 mg tablet mg PO DAILY 07/30/25 07/30/25 Unknown History oxycodone 5 mg tablet mg PO PRN 07/30/25 07/30/25 Unknown History Allergies Allergy/AdvReac Type Severity Reaction Status Date / Time sertraline Allergy Unknown Unknown Verified 08/22/25 09:18 Review of Systems Review of Systems: All systems reviewed & are unremarkable except as noted in HPI and below PMFSH Past Medical History Medical History Hepatic steatosis Splenomegaly Left sided abdominal pain Morbid obesity Tobacco abuse BMI 38.0-38.9,adult Family History Family History Father Hypertension Family history of alcoholism Cerebrovascular accident Family history of coronary artery disease Mother Family history of lung cancer Sibling No problems noted. Other Family history of malignant neoplasm Social History Social History (Updated 07/30/25 @ 10:59 by Maryanne Hansen) Smoking packs per day: 2 Smoking cigarettes per day: 40.0 Years smoked: 22 Smoking pack-years: 44.00 Tobacco type: cigarettes Smoking end date: 07/16/25 Alcohol intake: current Substance use: never Living arrangements: with family Spiritual care concerns: No Exam Narrative: APPEARANCE: Well appearing, no pain, no distress, well-nourished. HEAD: normocephalic, atraumatic. EYES: PERRLA/EOMI, conjunctivae clear. NOSE: Normal no drainage EARS:TMS clear with good light reflex. THROAT: Pharynx clear, no exudate. NECK: Supple. No adenopathy, no masses. RESPIRATORY: Airway patent, respirations nonlabored. Clear to auscultation bilaterally, no rales, rhonchi, wheezing. CARDIOVASCULAR: Regular rate and rhythm without murmurs rubs or gallops. ABDOMINAL: Soft, nontender, nondistended, normal bowel sounds MUSCULOSKELETAL: Lower extremity edema, not worse than patient's previous baseline NEURO: Alert. Cranial nerves II through XII intact. Good gait. Good coordination SKIN: well-appearing surgical incision chest Course Vital Signs Vital signs: Vital Signs Temperature 97.6 F 08/22/25 09:13 Pulse Rate 77 08/22/25 09:13 Respiratory Rate 20 08/22/25 09:13 Blood Pressure 190/111 H 08/22/25 09:13 Pulse Oximetry 98 08/22/25 09:13 Oxygen Delivery Room Air 08/22/25 09:13 Temperature 97.6 F 08/22/25 09:13 Pulse Rate 68 08/22/25 11:54 Respiratory Rate 20 08/22/25 11:54 Blood Pressure 153/94 H 08/22/25 11:54 Pulse Oximetry 95 08/22/25 11:54 Oxygen Delivery Room Air 08/22/25 09:19 Medical Decision Making MDM Narrative Medical decision making narrative: 45-year-old male presents emergency department for evaluation for some shortness of breath that was occurring last night. Patient states that he was having difficulty exhaling info he was not able to exhale post air. Patient states he concentrated and uses his incentive spirometer he put symptoms resolved. Upon arrival emergency department patient states that his symptoms have resolved. Patient denies any new chest pain with this. Patient was able to ambulate it baseline emergency department with no desaturation. Patient did have elevated D-dimer but CT was negative for pulmonary embolism but does show evidence of moderate pericardial effusion. EKG showed no evidence acute STEMI. Patient was updated the results of the workup. Patient was encouraged to continue have close follow-up with his fusion operator. Patient was also educated on reasons to return to the emergency department. All questions concerns were addressed patient well-appearing at time of discharge. Do suspect patient may have had a bronchospasm secondary to the particular and has house. Patient and family are comfortable the plan for discharge and close follow-up. Differential Diagnosis Differential Diagnosis: ACS, pneumonia, pulmonary embolism, bronchospasm, COPD Vital Signs Vital Signs: Vital Signs Temperature 97.6 F 08/22/25 09:13 Pulse Rate 77 08/22/25 09:13 Respiratory Rate 20 08/22/25 09:13 Blood Pressure 190/111 H 08/22/25 09:13 Pulse Oximetry 98 08/22/25 09:13 Oxygen Delivery Room Air 08/22/25 09:13 Temperature 97.6 F 08/22/25 09:13 Pulse Rate 68 08/22/25 11:54 Respiratory Rate 20 08/22/25 11:54 Blood Pressure 153/94 H 08/22/25 11:54 Pulse Oximetry 95 08/22/25 11:54 Oxygen Delivery Room Air 08/22/25 09:19 Lab Data 08/22/25 09:15 08/22/25 09:14 Labs: Lab Results 08/22/25 08/22/25 08/22/25 Range/Units 09:14 09:15 09:36 WBC 10.4 H (4.5-10.0) K/mm3 RBC 4.39 L (4.6-6.20) M/mm3 Hgb 11.9 L (14.0-18.0) g/dL Hct 38.8 L (42.0-52.0) % MCV 88.4 (80-100) fl MCH 27.1 (26-34) pg MCHC 30.7 L (32-36) g/dl RDW 14.0 (11.5-14.5) % Plt Count 293 (150-375) k/mm3 MPV 10.2 (7.4-10.4) fl Immature Gran % (Auto) 0.2 (0-0.5) % Neut % (Auto) 74.3 H (45.5-73.1) % Lymph % (Auto) 16.6 L (18.3-44.2) % [place] % (Auto) 5.2 (2.6-8.5) % Eos % (Auto) 3.0 (0-4.4) % Baso % (Auto) 0.7 (0.2-1.2) % Lymph # (Auto) 1.73 (0.9-3.2) K/mm3 [place] # (Auto) 0.5 (0.1-0.6) K/mm3 Eos # (Auto) 0.3 (0-0.3) K/mm3 Baso # (Auto) 0.1 (0.0-0.1) K/mm3 Abs Immat Gran (auto) 0.02 (0.00-0.031) K/mm3 Absolute Neuts (auto) 7.8 H (1.3-6.7) K/mm3 Absolute Nucleated RBC 0.000 (0.0-0.012) K/mm3 Nucleated RBC % 0.0 (0.0-0.2) % D-Dimer 2.43 H (<0.48) ug/mL Sodium 141 (137-145) mmol/L Potassium 4.3 (3.4-5.0) mmol/L Chloride 102 (98-107) mmol/L Carbon Dioxide 29 (22-30) mmol/L Anion Gap 10 (4-12) mmol/L BUN 12 (9-20) mg/dL Creatinine 0.75 (0.7-1.3) mg/dL Estim Creat Clear Calc 164 ml/min Estimated GFR > 60 (59 - ) Glucose 126 H (65-110) mg/dL Calcium 9.3 (8.4-10.2) mg/dL Total Bilirubin 0.8 (0.2-1.3) mg/dL AST 49 (17-59) U/L ALT 55 H (6-50) U/L Alkaline Phosphatase 117 (38-126) U/L NT-Pro-B Natriuret Pep 72 (19.9-100) pg/mL Total Protein 8.9 H (6.3-8.2) g/dL Albumin 4.7 (3.5-5.1) g/dL Influenza A (RT-PCR) Negative (Negative) Influenza B (RT-PCR) Negative (Negative) RSV (RT-PCR) Negative (Negative) SARS-CoV-2 RNA (RT-PCR) Negative (Negative) Discharge Plan Discharge Clinical Impression: Acute pericardial effusion Patient Disposition: Home Condition: Stable Instructions: Antibiotic Form Additional Instructions: Have close follow-up with your primary care physician and Cardiology for additional outpatient testing. If you have any worsening symptoms then please call or return to the emergency department. Patient Language: Greenlandic Prescriptions: No Action clopidogrel 75 mg tablet PO DAILY methocarbamol 750 mg tablet PO ONCE PRN metoprolol tartrate 50 mg tablet PO DAILY gabapentin 300 mg capsule PO TID PRN oxycodone 5 mg tablet PO PRN metformin 500 mg tablet 500 mg PO ONCE Qty: 30 3RF Ozempic 0.25 mg or 0.5 mg (2 mg/3 mL) pen injector 0.25 mg subcut WEEKLY Qty: 3 3RF Rx Instructions: S/P CABG aspirin [Adult Low Dose Aspirin] 81 mg tablet,delayed release (DR/EC) 81 mg PO DAILY atorvastatin [Lipitor] 40 mg tablet 40 mg PO HS Qty: 90 3RF amlodipine [Norvasc] 10 mg tablet 10 mg PO DAILY Qty: 90 0RF (DME) blood-glucose meter [Accu-Chek Guide Glucose Meter] Misc See Rx Instructions .ROUTE .MEDSUPPLY Qty: 1 0RF Rx Instructions: As directed (DME) Accu-Chek Guide test strips Strip See Rx Instructions .ROUTE .MEDSUPPLY Qty: 100 0RF Rx Instructions: Check glucose qd (DME) lancets [Accu-Chek Softclix Lancets] Misc See Rx Instructions .ROUTE .MEDSUPPLY Qty: 100 0RF Rx Instructions: Check glucose qd Follow-up/Referrals: Samy Hendrickson MD [Primary Care Provider, Family Practice]
--- OUTSIDE RECORDS SUMMARY | 2025-08-22 09:35 | XMS_ITS | Encounter Summary ---
Author Organization [facility] Healthcare Address [address] [place] [address] Care Team Providers Care Senior [employer] Net Developer Name Role Phone Samy Hendrickson MD Primary Care Provider [phone] Vijay Saravia MD Unavailable [phone] Encounter Details Date Type Department Care Team (Late st Contact Info) Description 06/07/2025 Orders Only [facility] Health Information Management [address] [place] [id number] Scanning, Provider Social History Tobacco Use Types Packs/Day Years Used Date Smoking Tobacco: Every Day Cigarettes Sex and Gender Information Value Date Recorded Sex Assigned at Not on file Legal Sex Male 12:00 PM CDT Gender Identity Not on file Sexual Orientation Not on file documented as of this encounter Plan of Treatment Not on file documented as of this encounter Procedures Procedure Name Priority Date/Time Associated Diagnosis Comments CARDIOLOGY DOCUMENT SCAN 06/07/2025 documented in this encounter Results * Cardiology Document Scan (06/07/2025) Anatomical Region [...] documented as of this encounter Care Teams Senior [employer] Net Developer Relationship Specialty Start Date End Date Samy Hendrickson MD [address] [place] [address] PCP - General Family Medicine 02/22/25 Vijay Saravia MD [address] [address] Consulting Physician Cardiology 07/08/25 documented as of this encounter
--- OUTSIDE RECORDS SUMMARY | 2025-08-22 09:35 | XMS_ITS | Encounter Summary ---
Author Organization [facility] Healthcare Address [address] [place] [address] Care Team Providers Care Montessori Preschool Teacher Name Role Phone Samy Hendrickson MD Primary Care Provider [phone] Vijay Saravia MD Unavailable [phone] Encounter Details Date Type Department Care Team (Late st Contact Info) Description 01/13/2025 Orders Only [facility] [place] Health Information Management [address] [place] [id number] Scanning, Provider Social History Tobacco Use [...] documented as of this encounter Care Teams [employer]ori Preschool Teacher Relationship Specialty Start Date End Date Samy Hendrickson MD [address] [place] [address] PCP - General Family Medicine 02/22/25 Vijay Saravia MD [address] [address] Consulting Physician Cardiology 07/08/25 documented as of this encounter
--- OUTSIDE RECORDS SUMMARY | 2025-08-22 09:35 | XMS_ITS | Clinical Summary ---
Author Organization [facility] [address] Address [address] [place] [address] Care Team Providers Care Business Trainer Name Role Phone Samy Hendrickson MD Primary Care Provider [phone] Vijay Saravia MD Unavailable [phone] Allergies Active Allergy Reactions Criticality Noted Date Comments Sertraline Unknown 07/02/2025 Medications atorvastatin (LIPITOR) 40 mg tabletIndicatio ns:coronary artery disease Take 1 tablet by mouth daily 06/07/20 25 Active omega 6-lqh-tyz-fish oil 1,200 (144-216) mg capsuleIndicati ons:hypertrigly ceridemia [...] Department Care Team Description 08/20/2025 8:30 AM BURLAP MAN Home Care Visit [facility] [address] [address] [address] [place] [address] Emily Simpson, PT PT HOME VISIT 08/20/2025 Orders Only [facility] Medicine Cardiology [address] [facility] 8th [place] [address] [place] [address] Clary Bo NP 08/18/2025 1:30 PM BURLAP MAN Office Visit [facility] Cardiology [address] [facility] [address] [place] [address] Radha Mary NP Coronary artery disease involving coronary bypass graft of [place] heart without angina pectoris (Primary Dx); Primary hypertension; Tobacco abuse; Mixed hyperlipidemia 08/17/2025 3:30 PM BURLAP MAN Home Care Visit [address] [address] [address] [place] [address] Emily Simpson, PT PT HOME VISIT 08/13/2025 8:30 AM CDT Home Care Visit [address] [place] [address] Emily Simpson, PT PT HOME VISIT 08/11/2025 10:00 AM CDT Home Care Visit [address] [address] [place] [address] Emily Simpson, PT PT HOME VISIT 08/10/2025 Telephone [facility] [place] [facility] [address] [place] [address] Office Building 2, [address] [place] [address] Elen Oconnell CMA 08/06/2025 9:30 AM CDT Home Care Visit [address] [address] [address] [place] [address] Emliy Simpson, PT PT HOME VISIT 08/05/2025 11:00 AM CDT Office Visit [facility] Medicine Physicians [facility] Surgery [address] [place] [address] Office Building 2, [address] [place] [address] Fabien Galeas, JARVIS Follow-up examination following surgery (Primary Dx); S/P CABG x 2 08/05/2025 10:48 AM CDT - 08/05/2025 11:59 PM CDT Hospital Encounter [facility] Cardiac Testing [address] [place] [address] 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 Discharge Disposition: Discharge to home or self care 08/05/2025 10:14 AM CDT - 08/05/2025 11:59 PM CDT Hospital Encounter [facility] Diagnostic Imaging [address] [place] [address] 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 Discharge Disposition: Discharge to home or self care 08/04/2025 10:00 AM CDT Home Care Visit [address] [place] [address] Sandro Blank, RN SN DISCIPLINE DISCHARGE 08/03/2025 10:30 AM CDT Home Care Visit [address] [place] [address] Emily Simpson, PT PT HOME VISIT 08/02/2025 9:30 AM CDT Home Care Visit [address] [place] [address] Sandro Blank, HECTOR SN HOME VISIT 07/30/2025 [facility] [address] [place] [address] Building 2, [address] [place] [address] Sade Lee MA 07/29/2025 12:30 PM CDT Home Care Visit [address] [place] [address] Sandro Blank RN SN HOME VISIT 07/29/2025 9:00 AM CDT Home Care Visit [address] [place] [address] Emily Simpson, PT PT HOME VISIT 07/29/2025 Telephone [facility] [place] [facility] [address] [place] [address] Office [address] 2, [address] [place] [address] Fabien Galeas, QUALITY ASSOCIATE 07/29/2025 Telephone [facility] [address] [place] [address] Office [address] 2, [address] [place] [address] Fabien Galeas, QUALITY ASSOCIATE 07/28/2025 Orders Only [facility] [address] Medical Office Building 2, [address] [place] [address] Fabien Galeas, JARVIS Acute post-operative pain (Primary Dx) 07/27/2025 Home Care Visit [address] [address] [address] [place] [address] Sandro Blank, RN CASE COMMUNICATION 07/26/2025 12:30 PM CDT Home Care Visit [address] [place] [address] Emily Simpson, PT PT INITIAL EVALUATION 07/26/2025 Home Care Visit [address] [address] [place] [address] Rosina Burnett, RN WOCN CONSULT 07/26/2025 Orders Only [facility] Medicine Cardiothoracic Surgery [address] Room [address] [place] [address] Fabien Galeas, JARVIS 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 (Primary Dx) 07/25/2025 9:30 AM CDT Home Care Visit [address] [place] [address] Renetta Lee, HECTOR SN OASIS START OF CARE 07/25/2025 Plan of Care Documentation [address] [address] [address] [place] [address] 07/21/2025 Telephone [facility] Home Care Services [address] [place] [address] [address] [place] [address] Thania Bo 07/21/2025 Telephone [facility] Home Care Services [address] [place] [address] [address] [place] [address] Thania Bo 07/16/2025 7:30 AM CDT - 07/16/2025 2:33 PM CDT Surgery [facility] OR [facility] [place] [address] Faby Medina MD MEDIAN STERNOTOMY, CORONARY ARTERY BYPASS GRAFT TIMES TWO, BILATERAL INTERNAL MAMMARY ARTERIES, LEFT ATRIAL APPENDAGE LIGATION [03116 (CPT )] 07/16/2025 7:30 AM CDT Anesthesia Event [facility] OR [address] [place] [address] Immanuel Canales MD Taylor-White, Carlotta A., NP 07/16/2025 6:30 AM CDT Ancillary Procedure [facility] OR [address] [place] [address] 07/16/2025 5:26 AM CDT - 07/20/2025 5:05 PM CDT Hospital Encounter [address] [address] Faby Medina MD Saravanan, Pathanjali, MD Saturno Arias, MD Jose C Mishra, Saad Veronica MD Coronary artery disease involving [place] coronary artery of [place] heart, unspecified whether angina present (Primary Dx); Coronary artery disease involving coronary bypass graft of [place] heart, unspecified whether angina present; Chest pain due to myocardial ischemia, unspecified ischemic chest pain type Discharge Disposition: Discharge to home or self care 07/15/2025 8:06 AM CDT - 07/15/2025 11:59 PM CDT Hospital Encounter [facility] Vascular Lab [address] [place] [phone] Encounter for preprocedural cardiovascular examination Discharge Disposition: Discharge to home or self care 07/15/2025 8:00 AM CDT - 07/15/2025 11:59 PM CDT Hospital Encounter [facility] Vascular Lab [address] [place] [address] Encounter for other preprocedural examination Discharge Disposition: Discharge to home or self care 07/09/2025 Telephone [facility] [place] [facility] [address] [facility] Medical Office Building 2, [address] [place] [address] Elen Oconnell CMA 07/08/2025 10:18 AM CDT - 07/08/2025 11:59 PM CDT Hospital Encounter [facility] ED Diagnostic Imaging [address] [place] [phone] Discharge Disposition: Discharge to home or self care 07/08/2025 10:00 AM CDT Pre-Admission Testing [facility] PreAdmission Testing [address] [place] [address] Pre-op testing (Primary Dx); Coronary artery disease involving [place] coronary artery of [place] heart with other form of angina pectoris; Pre-diabetes; Morbid obesity (HCC) 07/08/2025 8:00 AM CDT - 07/08/2025 11:59 PM CDT Hospital Encounter [facility] Cardiac Testing [address] [place] [address] Coronary artery disease, unspecified vessel or lesion type, unspecified whether angina present, unspecified whether [place] or transplanted heart Discharge Disposition: Discharge to home or self care 07/07/2025 Orders Only [facility] PreAdmission Testing [address] [place] [address] Melania Lee RN Pre-op testing (Primary Dx) 07/06/2025 11:30 PM CDT Office Visit [facility] [place] [facility] [address] [place] [address] Office Building 2, [address] [place] [address] Faby Medina MD 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 07/06/2025 Telephone [facility] [place] [facility] [address] [place] [address] Office [address] 2, [address] [place] [address] Elen Oconnell CMA 07/06/2025 Orders Only [facility] [place] [facility] [address] [place] [address] Office Building 2, [address] [place] [address] Faby Medina MD Encounter for preprocedural cardiovascular examination (Primary Dx); Encounter for other preprocedural examination 07/06/2025 Orders Only [facility] [address] Medical Office Building 2, [address] [place] [address] Fabien Galeas NP 07/05/2025 [facility] [address] [place] [address] Medical Office Building 2, [address] [place] [address] Elen Oconnell CMA 07/02/2025 [facility]phone [facility] [address] [place] [address] Medical Office Building 2, [address] [place] [address] Elen Oconnell CMA 07/02/2025 Orders Only [facility] [address] [place] [address] Medical Office Building 2, [address] [place] [address] Faby Medina MD 07/02/2025 Orders Only [facility] [address] [place] [address] Medical Office Building 2, [address] [place] [address] Faby Medina MD Coronary artery disease, unspecified vessel or lesion type, unspecified whether angina present, unspecified whether [place] or transplanted heart (Primary Dx) 07/01/2025 Telephone [facility] [place] [facility] [address] [place] [address] Medical Office Building 2, [address] [place] [address] Elen Oconnell CMA 06/30/2025 9:53 AM CDT - 06/30/2025 11:59 PM CDT Hospital Encounter [facility] Radiology [facility] [address] [place] [address] Discharge Disposition: Discharge to home or self care 06/30/2025 Orders Only [facility] [address] [place] [address] Medical Office Building 2, [address] [place] [address] Faby Medina MD 06/28/2025 Telephone [facility] Medicine Cardiothoracic Surgery [address] [facility] Advanced Medicine 8th Floor [address] [place] [address] Elen Oconnell CMA 06/09/2025 Orders Only [facility] Group Cardiology [address] [place] [address] Aaron Em MD 06/08/2025 Telephone [facility] Cardiology [address] [place] [address] Aaron Em MD 06/07/2025 Orders Only [facility] Health Information Management [address] [place] [address] Scanning, Provider from Last 3 Months Surgical History Surgery Date Site/Laterality Comments CARDIAC CATHETERIZATION 06/07/2025 LAPAROSCOPIC CHOLECYSTECTOMY 10/14/2013 - 10/13/2014 ORIF CLAVICLE FRACTURE 10/14/2010 - 10/13/2011 Left CORONARY ARTERY BYPASS GRAFT 07/16/2025 Chest/N/A Procedure: MEDIAN STERNOTOMY, CORONARY ARTERY BYPASS GRAFT TIMES TWO, BILATERAL INTERNAL MAMMARY ARTERIES, LEFT ATRIAL APPENDAGE LIGATION; Surgeon: Faby Medina MD; Location: [facility] OPERATING RO[facility]; Service: Cardiothoracic; Laterality: N/A; Medical [...] often do you attend chur ch or baptism services? Never 07/19/2025 Do you belong to any clubs o r organizations such as cheondoism groups, unions, fraternal or athletic groups, or [...] any time in the past 12 [facility], were you homeless or living in a half-way (including now)? No 07/19/2025 [facility] Utilities Answer Date Recorded In the past 12 months has th [employer] electric, gas, oil, or water company threatened [...] Comments Blood Pressure 128/70 08/20/2025 8:44 AM BURLAP MAN Pulse 63 08/20/2025 8:44 AM BURLAP MAN Temperature 36.4 C (97.5 F) 08/20/2025 8:44 AM BURLAP MAN Respiratory Rate 18 08/20/2025 8:44 AM BURLAP MAN Oxygen Saturation 95% 08/20/2025 8:44 AM BURLAP MAN Inhaled Oxygen Concentration - - Weight 150.1 kg (331 lb) 08/18/2025 1:28 PM BURLAP MAN Height 188 cm (6' 2) 08/18/2025 1:28 PM BURLAP MAN Body Mass Index 42.5 08/18/2025 1:28 PM BURLAP MAN Plan of Treatment Health Maintenance Due Date [...] this topic Medical Devices Implanted Type Area Med Peds Device Identifier Shelf Expiration Date Model / Serial / Lot Atricure Device Left Atrial Appendage Malleable Shaft 180 Degree Rotation White Atriclip Flex V 35mm Flexv35 Achv35 - [id number] Implanted:Qty: 1 on 07/16/2025 by Faby Medina MD at [facility] N/A: Heart Atricure [id number] 04/13/2028 ACHV35 / / [id number] Abyrx Putty Bone Cardio [address] Resorbable Hemostatic Syn [id number] - [id number] Implanted:Qty: 1 on 07/16/2025 by Faby Medina MD at [facility] N/A: Sternum Abyrx [id number] 01/12/2028 OS-MON-140 1CT / [employer] Device Closure Fibertape Sternal Cerclage Cutting Needle [id number] - [id number] Implanted:Qty: 3 on 07/16/2025 by Faby Medina MD at [facility] N/A: Sternum [employer] [id number] 05/13/2030 [id number] / / [id number] Procedures Procedure Name Priority Date/Time Associated Diagnosis Comments ECG 12-LEAD Routine 08/05/2025 10:54 AM CDT 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 XR CHEST PA LATERAL 2 VIEWS Schedule Routine, Read Routine (OP Routine) 08/05/2025 10:23 AM CDT 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 INFECTION PREVENTION [...] 7:30 AM CDT Coronary artery disease involving [place] coronary artery of [place] heart, unspecified whether angina present XR CHEST 1 VIEW IP Routine 07/18/2025 5:03 AM CDT EGFR Routine 07/18/2025 2:35 AM CDT PHOSPHORUS Routine 07/18/2025 2:35 AM CDT MAGNESIUM Routine 07/18/2025 2:35 AM CDT BASIC METABOLIC PANEL Routine 07/18/2025 2:35 AM CDT CBC WITHOUT DIFFERENTIAL Routine 07/18/2025 2:35 AM CDT CRITICAL CARE Routine 07/18/2025 1:59 AM CDT Coronary artery disease involving [place] coronary artery of [place] heart, unspecified whether angina present POCT GLUCOSE [...] 7:30 AM CDT Coronary artery disease involving [place] coronary artery of [place] heart, unspecified whether angina present POCT GLUCOSE [...] 7:50 PM CDT Coronary artery disease involving [place] coronary artery of [place] heart, unspecified whether angina present POCT GLUCOSE [...] HIGH RANGE Routine 07/16/2025 10:12 AM CDT MI AN PROCEDURE PLACEHOLDER Routine 07/16/2025 10:05 AM CDT MI AN CENTRAL LINE DOUBLE LUMEN Routine 07/16/2025 10:05 AM CDT MI AN PROCEDURE PLACEHOLDER Routine 07/16/2025 10:03 AM CDT POC BLOOD GAS AND CHEMISTRIES, ARTERIAL Routine 07/16/2025 9:53 AM CDT MI AN PROCEDURE PLACEHOLDER Routine 07/16/2025 9:14 AM CDT MI AN ELECTIVE ENDOTRACHEAL AIRWAY Routine 07/16/2025 9:14 AM CDT POC BLOOD GAS AND CHEMISTRIES, ARTERIAL Routine 07/16/2025 8:53 AM CDT POCT ACTIVATED CLOTTING TIME, HIGH RANGE Routine 07/16/2025 8:51 AM CDT PREPARE RBC STAT 07/16/2025 7:44 AM CDT MI CABG W/ARTERIAL GRAFT TWO ARTERIAL GRAFTS 07/16/2025 7:30 AM CDT Coronary artery disease involving [place] coronary artery of [place] heart with other form of angina pectoris PREPARE RBC Timed 07/16/2025 6:36 AM CDT RAJESH DURING CASE NO INTERP W/O CONTRAST [id number] Routine 07/16/2025 6:25 AM CDT B ABO [...] 10:16 AM CDT Coronary artery disease involving [place] coronary artery of [place] heart with other form of angina pectoris Pre-op testing Pre-diabetes Morbid obesity (HCC) EGFR Routine 07/08/2025 10:16 AM CDT Coronary artery disease involving [place] coronary artery of [place] heart with other form of angina pectoris Pre-op testing Pre-diabetes Morbid obesity (HCC) DIFFERENTIAL AUTO Routine 07/08/2025 10:16 AM CDT Coronary artery disease involving [place] coronary artery of [place] heart with other form of angina pectoris Pre-op testing Pre-diabetes Morbid obesity (HCC) ANTIBODY SCREEN Routine 07/08/2025 10:16 AM CDT Coronary artery disease involving [place] coronary artery of [place] heart with other form of angina pectoris Pre-op testing Pre-diabetes Morbid obesity (HCC) ABO/RH Routine 07/08/2025 10:16 AM CDT Coronary artery disease involving [place] coronary artery of [place] heart with other form of angina pectoris Pre-op testing Pre-diabetes Morbid obesity (HCC) CBC WITH AUTO DIFFERENTIAL Routine 07/08/2025 10:16 AM CDT Coronary artery disease involving [place] coronary artery of [place] heart with other form of angina pectoris Pre-op testing Pre-diabetes Morbid obesity (HCC) TYPE AND SCREEN 14 DAY Routine 07/08/2025 10:16 AM CDT Coronary artery disease involving [place] coronary artery of [place] heart with other form of angina pectoris Pre-op testing Pre-diabetes Morbid obesity (HCC) APTT Routine 07/08/2025 10:16 AM CDT Coronary artery disease involving [place] coronary artery of [place] heart with other form of angina pectoris Pre-op testing Pre-diabetes Morbid obesity (HCC) PROTIME-INR Routine 07/08/2025 10:16 AM CDT Coronary artery disease involving [place] coronary artery of [place] heart with other form of angina pectoris Pre-op testing Pre-diabetes Morbid obesity (HCC) HEMOGLOBIN A1C Routine 07/08/2025 10:16 AM CDT Coronary artery disease involving [place] coronary artery of [place] heart with other form of angina pectoris Pre-op testing Pre-diabetes Morbid obesity (HCC) COMPREHENSIVE METABOLIC PANEL Routine 07/08/2025 10:16 AM CDT Coronary artery disease involving [place] coronary artery of [place] heart with other form of angina pectoris Pre-op testing Pre-diabetes Morbid obesity (HCC) MRSA ONLY (STAPHYLOCOCCUS AUREUS) PCR Routine 07/08/2025 10:16 AM CDT Pre-op testing ECG 12-LEAD Routine 07/08/2025 10:03 AM CDT Coronary artery disease involving [place] coronary artery of [place] heart with other form of angina pectoris Pre-op testing Pre-diabetes Morbid obesity (HCC) TRANSTHORACIC ECHO (TTE) COMPLETE W DOPPLER/CF WO CONTRAST Routine 07/08/2025 9:00 AM CDT Coronary artery disease, unspecified vessel or lesion type, unspecified whether angina present, unspecified whether [place] or transplanted heart IR OUTSIDE REFERENCE Routine 06/30/2025 9:53 AM CDT CARDIOLOGY DOCUMENT SCAN Routine 06/07/2025 9:42 AM CDT CARDIOLOGY DOCUMENT SCAN 06/07/2025 SCAN - LABS 06/07/2025 from Last 3 Months Results * ECG 12 lead (08/05/2025 10:54 AM CDT) Ventricular Rate EKG/Min 65 BPM [facility] Atrial Rate 65 BPM [facility] MI-Interval (MSEC) 158 ms [facility] QRS-Interval (MSEC) 100 ms [facility] QT-Interval (MSEC) 396 ms [facility] QTc 411 ms [facility] P Jackson 29 degrees [facility] R Jackson 90 degrees [facility] T Jackson 111 degrees [facility] Diagnosis Normal sinus rhythm Rightward axis Incomplete [...] COBB M.D. ([id number]) on 08/05/2025 11:11:33 AM [facility] 08/05/2025 10:5 4 AM CDT 08/05/2025 11:11 AM CDT Fabien Galaes QUALITY ASSOCIATE ECG ORDERABLES Final Resu lt [facility] * XR Chest Pa Lateral 2 Views [...] signed by: Rikki Tolbert D.O. Fabien Galeas QUALITY ASSOCIATE IMG XR PROCEDURES Final Re sult * Infection Prevention Thais auris PCR, surveillance Axilla/Groin (07/20/2025 4:25 PM CDT) Thais auris DNA Not Detected Not Detected [facility] Comment: Interpretive Data Testing performed by [facility] Molecular Infectious Disease Laboratory using the Jennifer charlie 6800 Thais auris assay. This assay detects DNA from Thais auris using Real-Time PCR. This assay is laboratory developed and is not cleared by the [place] Food and Drug Administration. The performance characteristics have been verified by the [facility] Molecular Infectious Disease Laboratory. Testing performed by: [facility], [address] [facility], [place]., [address] Axilla/Groin 07/20/2025 4:25 PM CDT 07/20/2025 7:36 PM CDT Narrative DELIA - 07/21/2025 1:53 PM CDT Order placed by [facility] due to ring surveillance. us Instant Order Generic Provider LAB MICROBIOLOGY - GENERAL ORDERABLES Final Result Performing Organization Address [facility]/ZIP Co de Phone Number DELIA [address] [place] [address] [facility] * POCT glucose (07/20/2025 11:50 AM CDT) [facility] Glucose, POC 107 70 - 199 mg/dL Blood 07/20/2025 11:5 0 AM CDT 07/20/2025 11:50 AM CDT Saad Woodall MD LAB POCT ORDERABLES - DEV ICE Final Result Performing Organization Address [facility] Co de Phone Number SRAVAN[address] [place] [address] * XR Chest Pa Lateral 2 Views [...] signed by Moises JACOBS T: Report ID: [id number] Reading Location: [id number] Procedure Note Moises Kasper MD - 07/20/2025 EXAM DESCRIPTION: XR [...] signed by Moises JACOBS T: Report ID: [id number] Reading Location: [place] [address] Sudha SEGUNDO IMG XR PROCEDURES Final Result * POCT glucose (07/20/2025 8:12 AM CDT) Glucose, POC 108 70 - 199 mg/dL Blood 07/20/2025 8:12 AM CDT 07/20/2025 8:12 AM CDT Saad Woodall MD LAB POCT ORDERABLES - DEV ICE Final Result [facility] [address] [facility] Department of Laboratories [place], [place] [id number] * eGFR (07/20/2025 2:35 AM CDT) Pathologist [facility] eGFR >90 >=60 mL/min/1. 73 m2 Comment: [...] us Stacie Zamora NP LAB BLOOD ORDERABLES [facility] Result [facility] [address] [facility] [place] [address] * (ABNORMAL) CBC without differential (07/20/2025 2:35 AM CDT) [facility] WBC 13.86(H) 3.80 - 9.90 K/cumm Hgb 11.3(L) 13.0 - 17.5 g/dL [facility] Hct 34.5(L) 38.9 - 50.3 % [facility] Plt 232 150 - 400 K/cumm [facility] MPV 11.0 9.1 - 12.3 fL [facility] RBC 3.89(L) 4.30 - 5.80 M/cumm [facility] MCV 88.7 81.3 - 96.4 fL [facility] MCH 29.0 27.1 - 33.3 pg [facility] MCHC 32.8 32.3 - 35.7 g/dL [facility] RDW CV 14.1 11.1 - 14.9 % [facility] RDW SD 45.0 35.7 - 48.1 fL [facility] NRBC abs 0.00 0.00 - 0.01 K/cumm [facility] Blood 07/20/2025 2:35 AM CDT 07/20/2025 3:17 AM CDT Stacie Zamora QUALITY ASSOCIATE LAB BLOOD ORDERABLES Fi nal Result Performing Organization Address City/[facility] Co de Phone Number [address] [place] [address] * Phosphorus (07/20/2025 2:35 AM CDT) Pathologist [facility] Phosphorus, pl 2.5 2.3 - 4.5 mg/dL Blood 07/20/2025 2:35 AM CDT 07/20/2025 3:16 AM CDT Stacie Zamora QUALITY ASSOCIATE LAB BLOOD ORDERABLES Fi nal Result Performing Organization Address [facility] de Phone Number [address] [place] [address] * Magnesium (07/20/2025 2:35 AM CDT) Pathologist [facility] Magnesium 2.0 1.4 - 2.5 mg/dL Blood 07/20/2025 2:35 AM CDT 07/20/2025 3:16 AM CDT Stacie Zamora QUALITY ASSOCIATE LAB BLOOD ORDERABLES Fi nal Result Performing Organization Address City/[facility] Co de Phone Number [address] [place] [address] * (ABNORMAL) Basic metabolic panel (07/20/2025 2:35 AM CDT) Pathologist [facility] Sodium 138 135 - 145 mmol/L Potassium, pl 3.3 3.3 - 4.9 mmol/L [facility] Chloride 103 97 - 110 mmol/L [facility] CO2 25 22 - 32 mmol/L [facility] Anion gap 10 2 - 15 mmol/L [facility] BUN 17 6 - 25 mg/dL [facility] Creatinine 0.59(L) 0.80 - 1.30 mg/dL [facility] Glucose 108 70 - 199 mg/dL [facility] Comment: Interpretive Data Fasting glucose >/= 126 [...] 2022. Calcium 9.0 8.5 - 10.3 mg/dL [facility] Blood 07/20/2025 2:35 AM CDT 07/20/2025 3:16 AM CDT Stacie Zamora QUALITY ASSOCIATE LAB BLOOD ORDERABLES Fi nal Result Performing Organization Address [facility] Co de Phone Number [address] [place] [address] * POCT glucose (07/19/2025 8:01 PM CDT) [facility] Glucose, POC 101 70 - 199 mg/dL Blood 07/19/2025 8:01 PM CDT 07/19/2025 8:01 PM CDT Mike Schneider MD LAB POCT ORDERABLES - DEVICE Final Result Performing Organization Address City/[facility] Co de Phone Number [address] [place] [address] * POCT glucose (07/19/2025 4:19 PM CDT) Glucose, POC 99 70 - 199 mg/dL Glucose comment 1 RN/ Notified DELIA Blood 07/19/2025 4:19 PM CDT 07/19/2025 4:19 PM CDT Mike Schneider MD LAB POCT ORDERABLES - DEVICE Final Result [address] [place] [address] * (ABNORMAL) Phosphorus (07/19/2025 2:14 PM CDT) Phosphorus, pl 2.2(L) 2.3 - 4.5 mg/dL Blood 07/19/2025 2:14 PM CDT 07/19/2025 2:28 PM CDT Mike Schneider MD LAB BLOOD ORDERABLES Final Result Performing Organization Address City/[facility] Co de Phone Number [address] [place] [address] * POCT glucose (07/19/2025 11:25 AM CDT) Glucose, POC 111 70 - 199 mg/dL Glucose comment 1 RN/ Notified DELIA Blood 07/19/2025 11:2 5 AM CDT 07/19/2025 11:25 AM CDT Mike Schneider MD LAB POCT ORDERABLES - DEVICE Final Result Performing Organization Address City/[facility] Co de Phone Number [address] [place] [address] * POCT glucose (07/19/2025 7:33 AM CDT) Glucose, POC 124 70 - 199 mg/dL Glucose comment 1 RN/ Notified DELIA Blood 07/19/2025 7:33 AM CDT 07/19/2025 7:33 AM CDT us Mike Schneider MD LAB POCT ORDERABLES - DEVICE Final Result DELIA ALLEN [address] [facility] Department [place] [address] * XR Chest 1 View - in [...] Luna Rosenthal M.D. TW T: Report ID: [id number] Reading Location: [id number] Procedure Note Luna Rosenthal MD - 07/19/2025 [...] Luna Rosenthal M.D. TW T: Report ID: [id number] Reading Location: [place] [address] Stacie Zamora QUALITY ASSOCIATE IMG XR PROCEDURES Final Result * POCT glucose (07/19/2025 5:18 AM CDT) Pathologist [facility] Glucose, POC 122 70 - 199 mg/dL Glucose comment 1 RN/MD Notified DELIA ALLEN Blood 07/19/2025 5:18 AM CDT 07/19/2025 5:18 AM CDT Dorian Magdaleno MD LAB POCT ORDERABLES - DE VICE Final Result DELIA ALLEN [address] [facility] Department [place] [address] * eGFR (07/19/2025 2:49 AM CDT) Pathologist [facility] eGFR >90 >=60 mL/min/1. 73 m2 Comment: [...] MD LAB BLOOD ORDERABLES Fin al Result [facility] [address] [facility] Department [place] [address] * (ABNORMAL) Differential, auto (07/19/2025 2:49 AM CDT) Pathologist [facility] Neutrophil abs 11.65(H) 1.50 - 6.50 K/cumm Imm gran abs 0.04 0.00 - 0.10 K/cumm [facility] Lymphocyte abs 1.74 0.80 - 3.30 K/cumm [facility] Monocyte abs 1.09(H) 0.20 - 0.80 K/cumm [facility] Eosinophil abs 0.03 0.00 - 0.50 K/cumm [facility] Basophil abs 0.05 0.00 - 0.10 K/cumm [facility] Neutrophil pct 79.8 % [facility] Comment: Interpretive Data Percent cell count reference ranges are not reported, since discordance with absolute values may lead to misinterpretation of CBC data. Current Interpretive Data was last revised on 2018. Imm gran pct 0.3 % [facility] Comment: Interpretive Data Percent cell count reference ranges are not reported, since discordance with absolute values may lead to misinterpretation of CBC data. Current Interpretive Data was last revised on 2018. Lymphocyte pct 11.9 % [facility] Comment: Interpretive Data Percent cell count reference ranges are not reported, since discordance with absolute values may lead to misinterpretation of CBC data. Current Interpretive Data was last revised on 2018. Monocyte pct 7.5 % [facility] Comment: Interpretive Data Percent cell count reference ranges are not reported, since discordance with absolute values may lead to misinterpretation of CBC data. Current Interpretive Data was last revised on 2018. Eosinophil pct 0.2 % [facility] Comment: Interpretive Data Percent cell count reference ranges are not reported, since discordance with absolute values may lead to misinterpretation of CBC data. Current Interpretive Data was last revised on 2018. Basophil pct 0.3 % [facility] Comment: Interpretive Data Percent cell count reference ranges are not reported, since discordance with absolute values may lead to misinterpretation of CBC data. Current Interpretive Data was last revised on 2018. Blood 07/19/2025 2:49 AM CDT 07/19/2025 4:51 AM CDT us Dorian Magdaleno MD LAB BLOOD ORDERABLES Fin al Result [facility] [address] [facility] Department [place] [address] * (ABNORMAL) CBC with auto differential (07/19/2025 2:49 AM CDT) WBC 14.60(H) 3.80 - 9.90 K/cumm Hgb 11.4(L) 13.0 - 17.5 g/dL [facility] Hct 34.7(L) 38.9 - 50.3 % [facility] Plt 210 150 - 400 K/cumm [facility] MPV 10.9 9.1 - 12.3 fL [facility] RBC 3.92(L) 4.30 - 5.80 M/cumm [facility] MCV 88.5 81.3 - 96.4 fL [facility] MCH 29.1 27.1 - 33.3 pg [facility] MCHC 32.9 32.3 - 35.7 g/dL [facility] RDW CV 13.9 11.1 - 14.9 % [facility] RDW SD 44.6 35.7 - 48.1 fL [facility] NRBC abs 0.00 0.00 - 0.01 K/cumm [facility] Blood 07/19/2025 2:49 AM CDT 07/19/2025 4:51 AM CDT Dorian Magdaleno MD LAB BLOOD ORDERABLES Fin al Result Performing Organization Address [facility] Co de Phone Number [address] [place] [address] * (ABNORMAL) Phosphorus (07/19/2025 2:49 AM CDT) [facility] Phosphorus, pl 1.4(C) 2.3 - 4.5 mg/dL Comment:Critical Result call ed to and read back by [email or web address], DATE: 2025-07-19 05:21:39 BY: [email or web address] Blood 07/19/2025 2:49 AM CDT 07/19/2025 4:51 AM CDT Stacie Zamoar NP LAB BLOOD ORDERABLES Fi nal Result Performing Organization Address [facility] de Phone Number [address] [address] * Magnesium (07/19/2025 2:49 AM CDT) [facility] Magnesium 1.8 1.4 - 2.5 mg/dL Blood 07/19/2025 2:49 AM CDT 07/19/2025 4:51 AM CDT Stacie Zamora QUALITY ASSOCIATE LAB BLOOD ORDERABLES Fi nal Result Performing Organization Address [facility] Co de Phone Number [address] [place] [address] * (ABNORMAL) Comprehensive metabolic panel (07/19/2025 2:49 AM CDT) Sodium 138 135 - 145 mmol/L Potassium, pl 3.5 3.3 - 4.9 mmol/L [facility] Chloride 103 97 - 110 mmol/L [facility] CO2 25 22 - 32 mmol/L [facility] Anion gap 10 2 - 15 mmol/L [facility] BUN 14 6 - 25 mg/dL [facility] Creatinine 0.55(L) 0.80 - 1.30 mg/dL [facility] Glucose 117 70 - 199 mg/dL [facility] Comment: Interpretive Data Fasting glucose >/= 126 [...] 2022. Calcium 8.9 8.5 - 10.3 mg/dL [facility] Bilirubin, total 1.1 0.1 - 1.2 mg/dL [facility] Protein, pl 6.5 6.5 - 8.5 g/dL [facility] Albumin 3.5 3.5 - 5.0 g/dL [facility] Alk phos 104 40 - 130 Units/L [facility] ALT 68(H) 7 - 55 Units/L [facility] AST 78(H) 10 - 50 Units/L [facility] Blood 07/19/2025 2:49 AM CDT 07/19/2025 4:51 AM CDT us Dorian Magdaleno MD LAB BLOOD ORDERABLES Fin al Result DELIA [address] [facility] Department [place] [address] * POCT glucose (07/19/2025 12:14 AM CDT) Pathologist [facility] Glucose, POC 113 70 - 199 mg/dL Glucose comment 1 RN/ Notified DELIA Blood 07/19/2025 12:1 4 AM CDT 07/19/2025 12:14 AM CDT Dorian Magdaleno MD LAB POCT ORDERABLES - DE VICE Final Result Performing Organization Address City/[facility] Co de Phone Number [address] [place] [address] * POCT glucose (07/18/2025 9:03 PM CDT) Glucose, POC 112 70 - 199 mg/dL Glucose comment 1 RN/ Notified DELIA Blood 07/18/2025 9:03 PM CDT 07/18/2025 9:03 PM CDT Dorian Magdaleno MD LAB POCT ORDERABLES - DE VICE Final Result Performing Organization Address City/[facility] Co de Phone Number [address] [place] [address] * POCT glucose (07/18/2025 4:28 PM CDT) Glucose, POC 100 70 - 199 mg/dL Glucose comment 1 RN/ Notified DELIA Blood 07/18/2025 4:28 PM CDT 07/18/2025 4:28 PM CDT Dorian Magdaleno MD LAB POCT ORDERABLES - DE VICE Final Result Performing Organization Address City/[facility] Co de Phone Number [address] [place] [address] * POCT glucose (07/18/2025 11:15 AM CDT) Glucose, POC 124 70 - 199 mg/dL Blood 07/18/2025 11:1 5 AM CDT 07/18/2025 11:15 AM CDT Dorian Magdaleno MD LAB POCT ORDERABLES - DE VICE Final Result Performing Organization Address City/[facility] Co de Phone Number DELIA [address] [place] [address] * POCT glucose (07/18/2025 8:30 AM CDT) Glucose, POC 122 70 - 199 mg/dL Blood 07/18/2025 8:30 AM CDT 07/18/2025 8:30 AM CDT Result [facility] Faby Medina MD LAB POCT ORDERABLES - DEVIC E Final Result Performing Organization Address [facility] Phone Number DELIA [address] [place] [address] * (ABNORMAL) POC Blood Gas and Chemistries, Arterial - (07/18/2025 8:27 AM CDT) pH, art POC 7.46(H) 7.35 - 7.45 pCO2, art POC 39 35 - 45 mmHg [facility] pO2, art POC 61(L) 83 - 108 mmHg [facility] HCO3, art (Calc) POC 28 20 - 30 mmol/L [facility] Base excess, art POC 4 mmol/L [facility] Comment: Interpretive Data No reference range established. Current interpretive data was last revised 2020. O2 Sat, art (Calc) POC 94 94 - 98 % [facility] Oxy Hgb, art POC 91.8 90.0 - 95.0 % [facility] Met Hgb, art POC 0.5 0.0 - 1.9 % [facility] Carboxy Hgb, art POC 1.9 0.0 - 2.9 % [facility] Hemoglobin, art POC 12.5(L) 13.0 - 17.5 g/dL [facility] Blood 07/18/2025 8:27 AM CDT 07/18/2025 8:27 AM CDT Result [facility] Faby Medina MD LAB POCT ORDERABLES - DEVIC E Final Result DELIA [address] [facility] [place] [address] * Critical Care (07/18/2025 7:30 AM CDT) Narrative Link, Natalia Carrolln, DO - 07/18/2025 7:30 AM CDT Link, Natalia Lashawn, DO 07/18/2025 11:00 AM Critical Care Performed by: Stacie Zamora NP [...] plan with the patient's team and other medical/bridal consultant staff. This time was in addition to and separate from care provided by other practitioners on this day of service. Stacie Zamora QUALITY ASSOCIATE IN CLINIC/BEDSIDE ORDER ALBERTO Final Result * [...] Rehana Candelaria M.D. SN T: Report ID: [id number] Reading Location: [id number] Procedure Note Rehana Candelaria MD - 07/18/2025 [...] Rehana Candelaria M.D. SN T: Report ID: [id number] Reading Location: [id number] Stacie Zamora NP IMG XR PROCEDURES Final Result * eGFR (07/18/2025 2:35 AM CDT) Pathologist [facility] eGFR >90 >=60 mL/min/1. 73 m2 Comment: [...] SEGUNDO LAB BLOOD ORDERABLES Fi nal Result [facility] [address] [facility] [place] [address] * (ABNORMAL) CBC without differential (07/18/2025 2:35 AM CDT) [facility] WBC 16.72(H) 3.80 - 9.90 K/cumm Hgb 11.9(L) 13.0 - 17.5 g/dL [facility] Hct 38.0(L) 38.9 - 50.3 % [facility] Plt 211 150 - 400 K/cumm [facility] MPV 11.1 9.1 - 12.3 fL [facility] RBC 4.15(L) 4.30 - 5.80 M/cumm [facility] MCV 91.6 81.3 - 96.4 fL [facility] MCH 28.7 27.1 - 33.3 pg [facility] MCHC 31.3(L) 32.3 - 35.7 g/dL [facility] RDW CV 13.9 11.1 - 14.9 % [facility] RDW SD 46.4 35.7 - 48.1 fL [facility] NRBC abs 0.00 0.00 - 0.01 K/cumm [facility] Blood 07/18/2025 2:35 AM CDT 07/18/2025 3:51 AM CDT Stacie Zamora QUALITY ASSOCIATE LAB BLOOD ORDERABLES Fi nal Result [address] [place] [address] * (ABNORMAL) Phosphorus (07/18/2025 2:35 AM CDT) Pathologist [facility] Phosphorus, pl 2.0(L) 2.3 - 4.5 mg/dL Blood 07/18/2025 2:35 AM CDT 07/18/2025 3:51 AM CDT Stacie Zamora QUALITY ASSOCIATE LAB BLOOD ORDERABLES Fi nal Result Performing Organization Address City/[facility] Co de Phone Number [address] [place] [address] * Magnesium (07/18/2025 2:35 AM CDT) Pathologist [facility] Magnesium 2.2 1.4 - 2.5 mg/dL Blood 07/18/2025 2:35 AM CDT 07/18/2025 3:51 AM CDT Stacie Zamora QUALITY ASSOCIATE LAB BLOOD ORDERABLES Fi nal Result [address] [place] [address] * (ABNORMAL) Basic metabolic panel (07/18/2025 2:35 AM CDT) Sodium 139 135 - 145 mmol/L Potassium, pl 4.6 3.3 - 4.9 mmol/L [facility] Chloride 102 97 - 110 mmol/L [facility] CO2 29 22 - 32 mmol/L [facility] Anion gap 8 2 - 15 mmol/L [facility] BUN 14 6 - 25 mg/dL [facility] Creatinine 0.75(L) 0.80 - 1.30 mg/dL [facility] Glucose 152 70 - 199 mg/dL [facility] Comment: Interpretive Data Fasting glucose >/= 126 [...] 2022. Calcium 8.8 8.5 - 10.3 mg/dL [facility] Blood 07/18/2025 2:35 AM CDT 07/18/2025 3:51 AM CDT Stacie Zamora NP LAB BLOOD ORDERABLES Fi nal Result [facility] [address] [facility] [place] [address] * Critical Care (07/18/2025 1:59 AM CDT) [...] plan with the patient's team and other medical/bridal consultant staff. This time was in addition [...] DEVIC E Final Result Performing Organization Address [facility] Co de Phone Number [address] [address] * POCT glucose (07/17/2025 5:22 PM CDT) Glucose, POC 184 70 - 199 mg/dL Blood 07/17/2025 5:22 PM CDT 07/17/2025 5:22 PM CDT Faby Medina MD LAB POCT ORDERABLES - DEVIC E Final Result Performing Organization Address [facility] de Phone Number [address] [address] * POCT glucose (07/17/2025 11:30 AM CDT) Glucose, POC 132 70 - 199 mg/dL Blood 07/17/2025 11:3 0 AM CDT 07/17/2025 11:30 AM CDT us Faby Medina MD LAB POCT ORDERABLES - DEVIC E Final Result DELIA [address] [facility] [place] [address] * (ABNORMAL) Lipid panel (07/17/2025 11:26 AM [...] BLOOD ORDERABLES Final Resul t DELIA ALLEN [address] [facility] [place] [address] * POCT glucose (07/17/2025 10:01 AM CDT) Glucose, POC 118 70 - 199 mg/dL Blood 07/17/2025 10:0 1 AM CDT 07/17/2025 10:01 AM CDT Faby Medina MD LAB POCT ORDERABLES - DEVIC E Final Result Performing Organization Address [facility] de Phone Number DELIA [address] [address] * POCT glucose (07/17/2025 7:53 AM CDT) Glucose, POC 123 70 - 199 mg/dL Blood 07/17/2025 7:53 AM CDT 07/17/2025 7:53 AM CDT Faby Medina MD LAB POCT ORDERABLES - DEVIC E Final Result Performing Organization Address [facility] Phone Number [address] [address] * Critical Care (07/17/2025 7:30 AM CDT) [...] plan with the ICU team and other medical/bridal consultant staff, making frequent assessments and decisions [...] documenting in the medical record Stacie Zamora QUALITY ASSOCIATE IN CLINIC/BEDSIDE ORDER ALBERTO Final Result * POCT glucose (07/17/2025 6:58 AM CDT) Glucose, POC 129 70 - 199 mg/dL Blood 07/17/2025 6:58 AM CDT 07/17/2025 6:58 AM CDT Faby Medina MD LAB POCT ORDERABLES - DEVIC E Final Result Performing Organization Address [facility] Co de Phone Number [address] [address] * POCT glucose (07/17/2025 5:54 AM CDT) Glucose, POC 106 70 - 199 mg/dL Blood 07/17/2025 5:54 AM CDT 07/17/2025 5:54 AM CDT Faby Medina MD LAB POCT ORDERABLES - DEVIC E Final Result Performing Organization Address [facility] de Phone Number [address] [place] [address] * XR Chest 1 View - in [...] Rehana Candelaria M.D. SN T: Report ID: [id number] Reading Location: [id number] Procedure Note Rehana Candelaria MD - 07/17/2025 [...] way between the thoracic inlet and the armbo. An enteric tube traverses the midline and [...] Rehana Candelaria M.D. SN T: Report ID: [id number] Reading Location: [id number] Stacie Zamora QUALITY ASSOCIATE IMG XR PROCEDURES Final Result * (ABNORMAL) POC Blood Gas and Chemistries, Arterial - (07/17/2025 5:08 AM CDT) Pathologist [facility] pH, art POC 7.44 7.35 - 7.45 pCO2, art POC 35 35 - 45 mmHg [facility] pO2, art POC 116(H) 83 - 108 mmHg [facility] HCO3, art (Calc) POC 24 20 - 30 mmol/L [facility] Base excess, art POC 0 mmol/L [facility] Comment: Interpretive Data No reference range established. Current interpretive data was last revised 2020. O2 Sat, art (Calc) POC 100(H) 94 - 98 % [facility] Oxy Hgb, art POC 97.8(H) 90.0 - 95.0 % [facility] Met Hgb, art POC 0.4 0.0 - 1.9 % [facility] Carboxy Hgb, art POC 1.5 0.0 - 2.9 % [facility] Hemoglobin, art POC 11.2(L) 13.0 - 17.5 g/dL [facility] Sodium, art POC 134(L) 135 - 145 mmol/L [facility] Potassium, art POC 3.8 3.3 - 4.9 mmol/L [facility] Comment: Interpretive Data This method is not able to assess for hemolysis, which may falsely increase potassium concentrations. If further testing is needed to evaluate this result, consider in-laboratory plasma potassium. Current Interpretive Data was last revised on 2022. Glucose, art POC 99 70 - 199 mg/dL [facility] Ionized Calcium, art POC 4.52 4.50 - 5.10 mg/dL [facility] Lactate, art POC 0.9 0.7 - 2.0 mmol/L [facility] Blood 07/17/2025 5:08 AM CDT 07/17/2025 5:08 AM CDT Faby Medina MD LAB POCT ORDERABLES - DEVIC E Final Result Performing Organization Address [facility] Co de Phone Number DELIA [address] [address] * eGFR (07/17/2025 4:17 AM CDT) Pathologist [facility] eGFR >90 >=60 mL/min/1. 73 m2 Comment: [...] ORDERABLES Fi nal Result Performing Organization Address [facility]/ZIP Co de Phone Number [address] [place] [address] * (ABNORMAL) CBC without differential (07/17/2025 4:17 AM CDT) [facility] WBC 11.55(H) 3.80 - 9.90 K/cumm Hgb 10.7(L) 13.0 - 17.5 g/dL [facility] Hct 33.4(L) 38.9 - 50.3 % [facility] Plt 180 150 - 400 K/cumm [facility] MPV 11.1 9.1 - 12.3 fL [facility] RBC 3.73(L) 4.30 - 5.80 M/cumm [facility] MCV 89.5 81.3 - 96.4 fL [facility] MCH 28.7 27.1 - 33.3 pg [facility] MCHC 32.0(L) 32.3 - 35.7 g/dL [facility] RDW CV 13.5 11.1 - 14.9 % [facility] RDW SD 44.1 35.7 - 48.1 fL [facility] NRBC abs 0.00 0.00 - 0.01 K/cumm [facility] Blood 07/17/2025 4:17 AM CDT 07/17/2025 5:34 AM CDT Stacie Zamora NP LAB BLOOD ORDERABLES Fi nal Result Performing Organization Address City/[facility] Co de Phone Number [address] [place] [address] * Phosphorus (07/17/2025 4:17 AM CDT) Pathologist [facility] Phosphorus, pl 2.5 2.3 - 4.5 mg/dL Blood 07/17/2025 4:17 AM CDT 07/17/2025 5:34 AM CDT Sudha SEGUNDO LAB BLOOD ORDERABLES Fi nal Result Performing Organization Address City/[facility]/ZIP Co de Phone Number [address] [place] [address] * Magnesium (07/17/2025 4:17 AM CDT) Pathologist [facility] Magnesium 2.3 1.4 - 2.5 mg/dL Blood 07/17/2025 4:17 AM CDT 07/17/2025 5:34 AM CDT Stacie Zamora NP LAB BLOOD ORDERABLES Fi nal Result Performing Organization Address City/[facility]/ZIP Co de Phone Number DELIA [address] [address] * (ABNORMAL) Basic metabolic panel (07/17/2025 4:17 AM CDT) Sodium 142 135 - 145 mmol/L Potassium, pl 3.9 3.3 - 4.9 mmol/L [facility] Chloride 110 97 - 110 mmol/L [facility] CO2 25 22 - 32 mmol/L [facility] Anion gap 7 2 - 15 mmol/L [facility] BUN 14 6 - 25 mg/dL [facility] Creatinine 0.68(L) 0.80 - 1.30 mg/dL [facility] Glucose 106 70 - 199 mg/dL [facility] Comment: Interpretive Data Fasting glucose >/= 126 [...] 2022. Calcium 8.1(L) 8.5 - 10.3 mg/dL [facility] Blood 07/17/2025 4:17 AM CDT 07/17/2025 5:34 AM CDT Stacie Zamora QUALITY ASSOCIATE LAB BLOOD ORDERABLES Fi nal Result Performing Organization Address City/[facility]/ZIP Co de Phone Number DELIA [address] [place] [address] * POCT glucose (07/17/2025 3:53 AM CDT) Glucose, POC 109 70 - 199 mg/dL Blood 07/17/2025 3:53 AM CDT 07/17/2025 3:53 AM CDT us Faby Medina MD LAB POCT ORDERABLES - DEVIC E Final Result Performing Organization Address City/[facility] Co de Phone Number SRAV[address] [place] [address] * POCT glucose (07/17/2025 3:06 AM CDT) Glucose, POC 105 70 - 199 mg/dL Blood 07/17/2025 3:06 AM CDT 07/17/2025 3:06 AM CDT Faby Medina MD LAB POCT ORDERABLES - DEVIC E Final Result Performing Organization Address [facility] de Phone Number [address] [place] [address] * POCT glucose (07/17/2025 2:12 AM CDT) Glucose, POC 112 70 - 199 mg/dL Blood 07/17/2025 2:12 AM CDT 07/17/2025 2:12 AM CDT Faby Medina MD LAB POCT ORDERABLES - DEVIC E Final Result Performing Organization Address [facility] Co de Phone Number [address] [place] [address] * POCT glucose (07/17/2025 1:14 AM CDT) Glucose, POC 116 70 - 199 mg/dL Blood 07/17/2025 1:14 AM CDT 07/17/2025 1:14 AM CDT us Faby Medina MD LAB POCT ORDERABLES - DEVIC E Final Result Performing Organization Address City/[facility] Co de Phone Number [address] [place] [address] * POCT glucose (07/16/2025 11:53 PM CDT) Glucose, POC 120 70 - 199 mg/dL Glucose comment 1 RN/MD Notified [facility] Blood 07/16/2025 11:5 3 PM CDT 07/16/2025 11:53 PM CDT Faby Medina MD LAB POCT ORDERABLES - DEVIC E Final Result [address] [address] * POCT glucose (07/16/2025 11:00 PM CDT) Glucose, POC 119 70 - 199 mg/dL Glucose comment 1 RN/ Notified [facility] Blood 07/16/2025 11:0 0 PM CDT 07/16/2025 11:00 PM CDT Faby Medina MD LAB POCT ORDERABLES - DEVIC E Final Result Performing Organization Address City/[facility]/ZIP Co de Phone Number [address] [place] [address] * POCT glucose (07/16/2025 10:08 PM CDT) Glucose, POC 139 70 - 199 mg/dL Glucose comment 1 RN/ Notified [facility] Blood 07/16/2025 10:0 8 PM CDT 07/16/2025 10:08 PM CDT Faby Medina MD LAB POCT ORDERABLES - DEVIC E Final Result [address] [place] [address] * POCT glucose (07/16/2025 9:19 PM CDT) Glucose, POC 138 70 - 199 mg/dL Glucose comment 1 Follow Protocol [facility] Blood 07/16/2025 9:19 PM CDT 07/16/2025 9:19 PM CDT Faby Medina MD LAB POCT ORDERABLES - DEVIC E Final Result Performing Organization Address [facility] Co de Phone Number [address] [place] [address] * POCT glucose (07/16/2025 8:25 PM CDT) Glucose, POC 135 70 - 199 mg/dL Glucose comment 1 Follow Protocol [facility] Blood 07/16/2025 8:25 PM CDT 07/16/2025 8:25 PM CDT Faby Medina MD LAB POCT ORDERABLES - DEVIC E Final Result Performing Organization Address [facility] Co de Phone Number [address] [address] * Critical Care (07/16/2025 7:50 PM CDT) Narrative Olesya Veloz MD - 07/16/2025 7:50 PM CDT Olesya Veloz MD 07/17/2025 5:43 AM Critical Care Performed by: Olesya Veloz MD Authorized by: Olesya Veloz MD CRITICAL CARE: Team: [facility] Shift: PM Level of Billing: Critical Care [...] plan with the ICU team and other medical/bridal consultant staff, making frequent assessments and decisions [...] 199 mg/dL Glucose comment 1 Follow Protocol [facility] Blood 07/16/2025 7:24 PM CDT 07/16/2025 7:24 PM CDT us Faby Medina MD LAB POCT ORDERABLES - DEVIC E Final Result [facility] [address] [facility] [place] [address] * (ABNORMAL) POC Blood Gas and Chemistries, Arterial - (07/16/2025 5:55 PM CDT) pH, art POC 7.30(L) 7.35 - 7.45 pCO2, art POC 48(H) 35 - 45 mmHg [facility] pO2, art POC 73(L) 83 - 108 mmHg [facility] HCO3, art (Calc) POC 24 20 - 30 mmol/L [facility] Base excess, art POC -3 mmol/L [facility] Comment: Interpretive Data No reference range established. Current interpretive data was last revised 2020. O2 Sat, art (Calc) POC 96 94 - 98 % [facility] Oxy Hgb, art POC 94.2 90.0 - 95.0 % [facility] Met Hgb, art POC 0.5 0.0 - 1.9 % [facility] Carboxy Hgb, art POC 1.9 0.0 - 2.9 % [facility] Hemoglobin, art POC 11.9(L) 13.0 - 17.5 g/dL [facility] Blood 07/16/2025 5:55 PM CDT 07/16/2025 5:55 PM CDT Faby Medina MD LAB POCT ORDERABLES - DEVIC E Final Result Performing Organization Address City/[facility]/ZIP Co de Phone Number [address] [place] [address] * POCT glucose (07/16/2025 5:51 PM CDT) Glucose, POC 170 70 - 199 mg/dL Glucose comment 1 Follow Protocol [facility] Blood 07/16/2025 5:51 PM CDT 07/16/2025 5:51 PM CDT Faby Medina MD LAB POCT ORDERABLES - DEVIC E Final Result Performing Organization Address City/[facility] Co de Phone Number [address] [place] [address] * POCT glucose (07/16/2025 4:47 PM CDT) Glucose, POC 169 70 - 199 mg/dL Glucose comment 1 Follow Protocol [facility] Blood 07/16/2025 4:47 PM CDT 07/16/2025 4:47 PM CDT Faby Medina MD LAB POCT ORDERABLES - DEVIC E Final Result Performing Organization Address City/[facility]/ZIP Co de Phone Number [address] [place] [address] * XR Kub (07/16/2025 4:19 PM CDT) [...] signed by Vijay NAPIER T: Report ID: [id number] Reading Location: [id number] Procedure Note Vijay Valdovinos MD - 07/16/2025 [...] signed by Vijay NAPIER T: Report ID: [id number] Reading Location: [id number] Wanda Escalante QUALITY ASSOCIATE IMG XR PROCEDURES Final Result * POCT glucose (07/16/2025 3:41 PM CDT) Glucose, POC 169 70 - 199 mg/dL Glucose comment 1 Follow Protocol [facility] ALLEN Blood 07/16/2025 3:41 PM CDT 07/16/2025 3:41 PM CDT Faby Medina MD LAB POCT ORDERABLES - DEVIC E Final Result [facility] [address] [facility] [place] [address] * ECG 12 lead (07/16/2025 2:51 PM CDT) [facility] Ventricular Rate EKG/Min 89 BPM [facility] QRS-Interval (MSEC) 96 ms [facility] QT-Interval (MSEC) 402 ms [facility] QTc 489 ms [facility] R Jackson 107 degrees [facility] T Jackson 59 degrees [facility] Diagnosis Accelerated Junctional rhythm Rightward axis Incomplete right bundle branch block Prolonged QT When compared with ECG of 08-JUL-2025 10:03, Junctional rhythm has replaced Sinus rhythm QT has lengthened Confirmed by SULTAN BLANKENSHIP M.D. ([id number]) on 07/16/2025 3:41:56 PM [facility] 07/16/2025 2:51 PM CDT 07/16/2025 3:41 PM CDT Sudha SEGUNDO ECG ORDERABLES Final R esult Performing Organization Address [facility] Co de Phone Number [facility] * (ABNORMAL) POC Blood Gas and Chemistries, Arterial - (07/16/2025 2:40 PM CDT) Pathologist [facility] pH, art POC 7.27(L) 7.35 - 7.45 pCO2, art POC 52(H) 35 - 45 mmHg [facility] pO2, art POC 64(L) 83 - 108 mmHg [facility] HCO3, art (Calc) POC 24 20 - 30 mmol/L [facility] Base excess, art POC -4 mmol/L [facility] Comment: Interpretive Data No reference range established. Current interpretive data was last revised 2020. O2 Sat, art (Calc) POC 92(L) 94 - 98 % [facility] Oxy Hgb, art POC 89.2(L) 90.0 - 95.0 % [facility] Met Hgb, art POC 0.5 0.0 - 1.9 % [facility] Carboxy Hgb, art POC 2.5 0.0 - 2.9 % [facility] Hemoglobin, art POC 12.2(L) 13.0 - 17.5 g/dL [facility] Blood 07/16/2025 2:40 PM CDT 07/16/2025 2:40 PM CDT Faby Medina MD LAB POCT ORDERABLES - DEVIC E Final Result Performing Organization Address City/[facility] Co de Phone Number DELIA [address] [place] [address] * POCT glucose (07/16/2025 2:33 PM CDT) [facility] Signature Glucose, POC 151 70 - 199 mg/dL Glucose comment 1 RN/MD Notified [facility] Blood 07/16/2025 2:33 PM CDT 07/16/2025 2:33 PM CDT Faby Medina MD LAB POCT ORDERABLES - DEVIC E Final Result Performing Organization Address [facility] Co de Phone Number SRAVAN[address] [place] [address] * XR Chest 1 View (07/16/2025 2:27 [...] Vijay Valdovinos M.D. MJ T: Report ID: [id number] Reading Location: [id number] Procedure Note Vijay Valdovinos MD - 07/16/2025 [...] Vijay Valdovinos M.D. MJ T: Report ID: [id number] Reading Location: [place] [address] [facility] eduardo [facility] IMG XR PROCEDURES Final Result * (ABNORMAL) POC Blood Gas and Chemistries, Arterial - (07/16/2025 1:52 PM CDT) pH, art POC 7.24(L) 7.35 - 7.45 pCO2, art POC 55(H) 35 - 45 mmHg [facility] pO2, art POC 73(L) 83 - 108 mmHg [facility] HCO3, art (Calc) POC 24 20 - 30 mmol/L [facility] Base excess, art POC -4 mmol/L [facility] Comment: Interpretive Data No reference range established. Current interpretive data was last revised 2020. O2 Sat, art (Calc) POC 95 94 - 98 % [facility] Oxy Hgb, art POC 92.2 90.0 - 95.0 % [facility] Met Hgb, art POC 0.2 0.0 - 1.9 % [facility] Carboxy Hgb, art POC 2.7 0.0 - 2.9 % [facility] Hemoglobin, art POC 11.8(L) 13.0 - 17.5 g/dL [facility] Sodium, art POC 137 135 - 145 mmol/L [facility] Potassium, art POC 4.0 3.3 - 4.9 mmol/L [facility] Comment: Interpretive Data This method is not able to assess for hemolysis, which may falsely increase potassium concentrations. If further testing is needed to evaluate this result, consider in-laboratory plasma potassium. Current Interpretive Data was last revised on 2022. Glucose, art POC 148 70 - 199 mg/dL [facility] Ionized Calcium, art POC 4.30(L) 4.50 - 5.10 mg/dL [facility] Lactate, art POC 1.3 0.7 - 2.0 mmol/L [facility] Blood 07/16/2025 1:52 PM CDT 07/16/2025 1:52 PM CDT Faby Medina MD LAB POCT ORDERABLES - DEVIC E Final Result Performing Organization Address [facility] de Phone Number [address] [place] [address] * POCT glucose (07/16/2025 1:41 PM CDT) [facility] Glucose, POC 153 70 - 199 mg/dL Blood 07/16/2025 1:41 PM CDT 07/16/2025 1:41 PM CDT Faby Medina MD LAB POCT ORDERABLES - DEVIC E Final Result Performing Organization Address [facility] de Phone Number [address] [place] [address] * eGFR (07/16/2025 1:37 PM CDT) [facility] eGFR >90 >=60 mL/min/1. 73 m2 Comment: [...] 1:37 PM CDT 07/16/2025 1:48 PM CDT [employer] LAB BLOOD ORDERABLES Fi nal Result Performing Organization Address [facility] de Phone Number [address] [place] [address] * aPTT (07/16/2025 1:37 PM CDT) aPTT 29 22 - 37 sec Comment: Interpretive data aPTT test has not been evaluated for monitoring heparin therapy. The anti-Xa is the preferred test. Current interpretive data was last revised on 2019. Blood 07/16/2025 1:37 PM CDT 07/16/2025 1:48 PM CDT [facility] [employer] LAB BLOOD ORDERABLES Fi nal Result Performing Organization Address [facility] Co de Phone Number [address] [place] [address] * (ABNORMAL) Protime-INR (07/16/2025 1:37 PM CDT) [...] 1:37 PM CDT 07/16/2025 1:48 PM CDT [facility] ([employer])[facility] [employer] LAB BLOOD ORDERABLES Fi nal Result Performing Organization Address [facility] Co de Phone Number DELIA [address] [place] [address] * (ABNORMAL) CBC without differential (07/16/2025 1:37 PM CDT) WBC 24.90(H) 3.80 - 9.90 K/cumm Hgb 11.2(L) 13.0 - 17.5 g/dL [facility] Hct 35.1(L) 38.9 - 50.3 % [facility] Plt 192 150 - 400 K/cumm [facility] MPV 10.3 9.1 - 12.3 fL [facility] RBC 3.86(L) 4.30 - 5.80 M/cumm [facility] MCV 90.9 81.3 - 96.4 fL [facility] MCH 29.0 27.1 - 33.3 pg [facility] MCHC 31.9(L) 32.3 - 35.7 g/dL [facility] RDW CV 13.7 11.1 - 14.9 % [facility] RDW SD 45.1 35.7 - 48.1 fL [facility] NRBC abs 0.00 0.00 - 0.01 K/cumm [facility] Blood 07/16/2025 1:37 PM CDT 07/16/2025 1:48 PM CDT [employer] LAB BLOOD ORDERABLES Fi nal Result Performing Organization Address City/[facility]/ZIP Co de Phone Number SRAVAN[address] [place], [place] [id number] * Phosphorus (07/16/2025 1:37 PM CDT) [facility] Phosphorus, pl 3.3 2.3 - 4.5 mg/dL Blood 07/16/2025 1:37 PM CDT 07/16/2025 1:48 PM CDT [facility] LAB BLOOD ORDERABLES Fi nal Result Performing Organization Address [facility] de Phone Number [address] [place] [address] * Magnesium (07/16/2025 1:37 PM CDT) [facility] Magnesium 2.3 1.4 - 2.5 mg/dL Blood 07/16/2025 1:37 PM CDT 07/16/2025 1:48 PM CDT Result [facility] LAB BLOOD ORDERABLES Fi nal Result Performing Organization Address [facility] de Phone Number [address] [place] [address] * (ABNORMAL) Basic metabolic panel (07/16/2025 1:37 PM CDT) [facility] Sodium 141 135 - 145 mmol/L Potassium, pl 4.2 3.3 - 4.9 mmol/L [facility] Chloride 111(H) 97 - 110 mmol/L [facility] CO2 23 22 - 32 mmol/L [facility] Anion gap 7 2 - 15 mmol/L [facility] BUN 18 6 - 25 mg/dL [facility] Creatinine 0.86 0.80 - 1.30 mg/dL [facility] Glucose 162 70 - 199 mg/dL [facility] Comment: Interpretive Data Fasting glucose >/= 126 [...] 2022. Calcium 7.3(L) 8.5 - 10.3 mg/dL [facility] Blood 07/16/2025 1:37 PM CDT 07/16/2025 1:48 PM CDT Sudhabenjamín Paigeluis eduardo [facility] LAB BLOOD ORDERABLES Fi nal Result [facility] [address] [facility] [place] [address] * (ABNORMAL) POC Blood Gas and Chemistries, Arterial - (07/16/2025 12:58 PM CDT) pH, art POC 7.25(L) 7.35 - 7.45 pCO2, art POC 51(H) 35 - 45 mmHg [facility] pO2, art POC 79(L) 83 - 108 mmHg [facility] HCO3, art (Calc) POC 22 20 - 30 mmol/L [facility] Base excess, art POC -5 mmol/L [facility] Comment: Interpretive Data No reference range established. Current interpretive data was last revised 2020. O2 Sat, art (Calc) POC 93(L) 94 - 98 % [facility] Hemoglobin, art POC 11.9(L) 13.0 - 17.5 g/dL [facility] Hematocrit, art POC 35.0(L) 38.9 - 50.3 % [facility] Sodium, art POC 144 135 - 145 mmol/L [facility] Potassium, art POC 4.0 3.3 - 4.9 mmol/L [facility] Comment: Interpretive Data This method is not able to assess for hemolysis, which may falsely increase potassium concentrations. If further testing is needed to evaluate this result, consider in-laboratory plasma potassium. Current Interpretive Data was last revised on 2022. Glucose, art POC 159 70 - 199 mg/dL [facility] Ionized Calcium, art POC 4.50 4.50 - 5.10 mg/dL [facility] Blood 07/16/2025 12:5 8 PM CDT 07/16/2025 12:58 PM CDT us Faby Medina MD LAB POCT ORDERABLES - DEVIC E Final Result DELIA ALLEN [address] [facility] [place] [address] * Critical Care (07/16/2025 12:45 PM CDT) Narrative Natalia Peterson, - 07/16/2025 12:45 PM CDT Natalia Peterson DO 07/17/2025 8:43 PM Critical Care Performed by: Elina Max NP Authorized by: Elina Max NP CRITICAL CARE: Team: [facility] Shift: AM Level of Billing: Critical Care [...] plan with the ICU team and other medical/bridal consultant staff, making frequent assessments and decisions [...] to participate in decision making Elina Max QUALITY ASSOCIATE IN CLINIC/BEDSI DE ORDERABLES Final Result * (ABNORMAL) POC Blood Gas and Chemistries, Arterial - (07/16/2025 12:16 PM CDT) pH, art POC 7.27(L) 7.35 - 7.45 pCO2, art POC 53(H) 35 - 45 mmHg [facility] pO2, art POC 83 83 - 108 mmHg [facility] HCO3, art (Calc) POC 24 20 - 30 mmol/L [facility] Base excess, art POC -3 mmol/L [facility] Comment: Interpretive Data No reference range established. Current interpretive data was last revised 2020. O2 Sat, art (Calc) POC 94 94 - 98 % [facility] Hemoglobin, art POC 10.2(L) 13.0 - 17.5 g/dL [facility] Hematocrit, art POC 30.0(L) 38.9 - 50.3 % [facility] Sodium, art POC 143 135 - 145 mmol/L [facility] Potassium, art POC 4.3 3.3 - 4.9 mmol/L [facility] Comment: Interpretive Data This method is not able to assess for hemolysis, which may falsely increase potassium concentrations. If further testing is needed to evaluate this result, consider in-laboratory plasma potassium. Current Interpretive Data was last revised on 2022. Glucose, art POC 179 70 - 199 mg/dL [facility] Ionized Calcium, art POC 4.70 4.50 - 5.10 mg/dL [facility] Blood 07/16/2025 12:1 6 PM CDT 07/16/2025 12:16 PM CDT Faby Medina MD LAB POCT ORDERABLES - DEVIC E Final Result DELIA [address] [facility] [place] [address] * (ABNORMAL) POC Activated Clotting Time, High Range (07/16/2025 12:13 PM CDT) ACT 143(H) 87 - 138 sec POC Device Number [id number] [facility] Blood 07/16/2025 12:1 3 PM CDT 07/16/2025 12:13 PM CDT Faby Medina MD LAB BLOOD ORDERABLES Final Result [facility] [address] [place] [address] * (ABNORMAL) POC Blood Gas and Chemistries, Arterial - (07/16/2025 11:41 AM CDT) Pathologist [facility] pH, art POC 7.31(L) 7.35 - 7.45 pCO2, art POC 45 35 - 45 mmHg [facility] pO2, art POC 277(H) 83 - 108 mmHg [facility] HCO3, art (Calc) POC 23 20 - 30 mmol/L [facility] Base excess, art POC -4 mmol/L [facility] Comment: Interpretive Data No reference range established. Current interpretive data was last revised 2020. O2 Sat, art (Calc) POC 100(H) 94 - 98 % [facility] Hemoglobin, art POC 10.2(L) 13.0 - 17.5 g/dL [facility] Hematocrit, art POC 30.0(L) 38.9 - 50.3 % [facility] Sodium, art POC 140 135 - 145 mmol/L [facility] Potassium, art POC 5.1(H) 3.3 - 4.9 mmol/L [facility] Comment: Interpretive Data This method is not able to assess for hemolysis, which may falsely increase potassium concentrations. If further testing is needed to evaluate this result, consider in-laboratory plasma potassium. Current Interpretive Data was last revised on 2022. Glucose, art POC 205(H) 70 - 199 mg/dL [facility] Ionized Calcium, art POC 4.30(L) 4.50 - 5.10 mg/dL [facility] Blood 07/16/2025 11:4 1 AM CDT 07/16/2025 11:41 AM CDT Faby Medina MD LAB POCT ORDERABLES - DEVIC E Final Result Performing Organization Address [facility] Co de Phone Number [address] [place] [address] * (ABNORMAL) POC Activated Clotting Time, High Range (07/16/2025 11:39 AM CDT) [facility] ACT 457(H) 87 - 138 sec POC Device Number [id number] [facility] Blood 07/16/2025 11:3 9 AM CDT 07/16/2025 11:39 AM CDT Faby Medina MD LAB BLOOD ORDERABLES Final Result Performing Organization Address [facility] de Phone Number [address] [place] [address] * (ABNORMAL) POC Blood Gas and Chemistries, Arterial - (07/16/2025 11:14 AM CDT) [facility] pH, art POC 7.36 7.35 - 7.45 pCO2, art POC 42 35 - 45 mmHg [facility] pO2, art POC 342(H) 83 - 108 mmHg [facility] HCO3, art (Calc) POC 24 20 - 30 mmol/L [facility] Base excess, art POC -1 mmol/L [facility] Comment: Interpretive Data No reference range established. Current interpretive data was last revised 2020. O2 Sat, art (Calc) POC 100(H) 94 - 98 % [facility] Hemoglobin, art POC 10.2(L) 13.0 - 17.5 g/dL [facility] Hematocrit, art POC 30.0(L) 38.9 - 50.3 % [facility] Sodium, art POC 139 135 - 145 mmol/L [facility] Potassium, art POC 5.3(H) 3.3 - 4.9 mmol/L [facility] Comment: Interpretive Data This method is not able to assess for hemolysis, which may falsely increase potassium concentrations. If further testing is needed to evaluate this result, consider in-laboratory plasma potassium. Current Interpretive Data was last revised on 2022. Glucose, art POC 176 70 - 199 mg/dL [facility] Ionized Calcium, art POC 4.20(L) 4.50 - 5.10 mg/dL [facility] Blood 07/16/2025 11:1 4 AM CDT 07/16/2025 11:14 AM CDT Faby Medina MD LAB POCT ORDERABLES - DEVIC E Final Result Performing Organization Address City/[facility]/ZIP Co de Phone Number [address] [place] [address] * (ABNORMAL) POC Activated Clotting Time, High Range (07/16/2025 11:11 AM CDT) Pathologist [facility] ACT 450(H) 87 - 138 sec POC Device Number [id number] [facility] Blood 07/16/2025 11:1 1 AM CDT 07/16/2025 11:11 AM CDT Faby Medina MD LAB BLOOD ORDERABLES Final Result Performing Organization Address [facility] Co de Phone Number [address] [address] * (ABNORMAL) POC Blood Gas and Chemistries, Arterial - (07/16/2025 10:52 AM CDT) pH, art POC 7.32(L) 7.35 - 7.45 pCO2, art POC 46(H) 35 - 45 mmHg [facility] pO2, art POC 418(H) 83 - 108 mmHg [facility] HCO3, art (Calc) POC 24 20 - 30 mmol/L [facility] Base excess, art POC -2 mmol/L [facility] Comment: Interpretive Data No reference range established. Current interpretive data was last revised 2020. O2 Sat, art (Calc) POC 100(H) 94 - 98 % [facility] Hemoglobin, art POC 10.9(L) 13.0 - 17.5 g/dL [facility] Hematocrit, art POC 32.0(L) 38.9 - 50.3 % [facility] Sodium, art POC 139 135 - 145 mmol/L [facility] Potassium, art POC 5.2(H) 3.3 - 4.9 mmol/L [facility] Comment: Interpretive Data This method is not able to assess for hemolysis, which may falsely increase potassium concentrations. If further testing is needed to evaluate this result, consider in-laboratory plasma potassium. Current Interpretive Data was last revised on 2022. Glucose, art POC 150 70 - 199 mg/dL [facility] Ionized Calcium, art POC 4.40(L) 4.50 - 5.10 mg/dL [facility] Blood 07/16/2025 10:5 2 AM CDT 07/16/2025 10:52 AM CDT Faby Medina MD LAB POCT ORDERABLES - DEVIC E Final Result Performing Organization Address City/[facility]/ZIP Co de Phone Number [address] [place] [address] * (ABNORMAL) POC Activated Clotting Time, High Range (07/16/2025 10:50 AM CDT) ACT 421(H) 87 - 138 sec POC Device Number [id number] [facility] Blood 07/16/2025 10:5 0 AM CDT 07/16/2025 10:50 AM CDT Faby Medina MD LAB BLOOD ORDERABLES Final Result [address] [place] [address] * (ABNORMAL) POC Blood Gas and Chemistries, Arterial - (07/16/2025 10:15 AM CDT) pH, art POC 7.29(L) 7.35 - 7.45 pCO2, art POC 49(H) 35 - 45 mmHg [facility] pO2, art POC 69(L) 83 - 108 mmHg [facility] HCO3, art (Calc) POC 23 20 - 30 mmol/L [facility] Base excess, art POC -4 mmol/L [facility] Comment: Interpretive Data No reference range established. Current interpretive data was last revised 2020. O2 Sat, art (Calc) POC 91(L) 94 - 98 % [facility] Hemoglobin, art POC 12.2(L) 13.0 - 17.5 g/dL [facility] Hematocrit, art POC 36.0(L) 38.9 - 50.3 % [facility] Sodium, art POC 140 135 - 145 mmol/L [facility] Potassium, art POC 4.5 3.3 - 4.9 mmol/L [facility] Comment: Interpretive Data This method is not able to assess for hemolysis, which may falsely increase potassium concentrations. If further testing is needed to evaluate this result, consider in-laboratory plasma potassium. Current Interpretive Data was last revised on 2022. Glucose, art POC 132 70 - 199 mg/dL [facility] Ionized Calcium, art POC 4.60 4.50 - 5.10 mg/dL [facility] Blood 07/16/2025 10:1 5 AM CDT 07/16/2025 10:15 AM CDT Faby Medina MD LAB POCT ORDERABLES - DEVIC E Final Result Performing Organization Address [facility]/ZIP Co de Phone Number [address] Department [place] [address] * (ABNORMAL) POC Activated Clotting Time, High Range (07/16/2025 10:12 AM CDT) ACT 477(H) 87 - 138 sec POC Device Number [id number] [facility] Blood 07/16/2025 10:1 2 AM CDT 07/16/2025 10:12 AM CDT Faby Medina MD LAB BLOOD ORDERABLES Final Result Performing Organization Address City/[facility]/ZIP Co de Phone Number [address] [place] [address] * MI AN CENTRAL LINE DOUBLE LUMEN, MI AN PROCEDURE PLACEHOLDER (07/16/2025 10:05 AM CDT) Richy Mariano CRNA - 07/16/2025 10:05 AM CDT Richy Britt CRNA 07/16/2025 10:08 AM Central Venous Line Patient location: OR Start time: 07/16/2025 8:00 AM End Time: 07/16/2025 8:20 AM Indication: central venous access and CVP monitoring Staff: Placed by: MECHANICAL SPREADER OPERATOR: Richy Britt CRNA Procedure prep: Patient position: [...] assistance from Richy Britt CRNA and Dr. Canlaes. us Immanuel Canales MD ANESTHESIA ORDERAB LES Final Result * MI AN PROCEDURE PLACEHOLDER (07/16/2025 10:03 AM CDT) [...] art POC 47(H) 35 - 45 mmHg [facility] pO2, art POC 74(L) 83 - 108 mmHg [facility] HCO3, art (Calc) POC 23 20 - 30 mmol/L [facility] Base excess, art POC -4 mmol/L [facility] Comment: Interpretive Data No reference range established. Current interpretive data was last revised 2020. O2 Sat, art (Calc) POC 93(L) 94 - 98 % [facility] Hemoglobin, art POC 12.2(L) 13.0 - 17.5 g/dL [facility] Hematocrit, art POC 36.0(L) 38.9 - 50.3 % [facility] Sodium, art POC 141 135 - 145 mmol/L [facility] Potassium, art POC 4.2 3.3 - 4.9 mmol/L [facility] Comment: Interpretive Data This method is not able to assess for hemolysis, which may falsely increase potassium concentrations. If further testing is needed to evaluate this result, consider in-laboratory plasma potassium. Current Interpretive Data was last revised on 2022. Glucose, art POC 123 70 - 199 mg/dL [facility] Ionized Calcium, art POC 4.50 4.50 - 5.10 mg/dL [facility] Blood 07/16/2025 9:53 AM CDT 07/16/2025 9:53 AM CDT us Faby Medina MD LAB POCT ORDERABLES - DEVIC E Final Result [facility] [address] [facility] Department of Laboratories [place], [place] [id number] * MI AN ELECTIVE ENDOTRACHEAL AIRWAY, MI AN PROCEDURE PLACEHOLDER (07/16/2025 9:14 AM CDT) Narrative Richy Britt CRNA - 07/16/2025 9:14 AM CDT Richy Britt CRNA 07/16/2025 11:34 AM Airway Patient location: OR Urgency: elective Date/time: 07/16/2025 7:51 AM Indications for airway management: anesthesia Difficult airway: no Staff: Placed by: MECHANICAL SPREADER OPERATOR: Richy Britt CRNA Emergent airway documentation: Risks [...] art POC 62(H) 35 - 45 mmHg [facility] pO2, art POC 75(L) 83 - 108 mmHg [facility] HCO3, art (Calc) POC 28 20 - 30 mmol/L [facility] Base excess, art POC 0 mmol/L [facility] Comment: Interpretive Data No reference range established. Current interpretive data was last revised 2020. O2 Sat, art (Calc) POC 92(L) 94 - 98 % [facility] Hemoglobin, art POC 12.9(L) 13.0 - 17.5 g/dL [facility] Hematocrit, art POC 38.0(L) 38.9 - 50.3 % [facility] Sodium, art POC 141 135 - 145 mmol/L [facility] Potassium, art POC 4.0 3.3 - 4.9 mmol/L [facility] Comment: Interpretive Data This method is not able to assess for hemolysis, which may falsely increase potassium concentrations. If further testing is needed to evaluate this result, consider in-laboratory plasma potassium. Current Interpretive Data was last revised on 2022. Glucose, art POC 108 70 - 199 mg/dL [facility] Ionized Calcium, art POC 4.90 4.50 - 5.10 mg/dL [facility] Blood 07/16/2025 8:53 AM CDT 07/16/2025 8:53 AM CDT Faby Medina MD LAB POCT ORDERABLES - DEVIC E Final Result Performing Organization Address [facility] Co de Phone Number [facility] [address] [address] * POC Activated Clotting Time, High Range (07/16/2025 8:51 AM CDT) ACT 124 87 - 138 sec POC Device [facility] [id number] [facility] Blood 07/16/2025 8:51 AM CDT 07/16/2025 8:51 AM CDT Faby Medina MD LAB BLOOD ORDERABLES Final Result Performing Organization Address [facility] de Phone Number [address] [address] * Prepare RBC: 2 Units (07/16/2025 7:44 AM CDT) Units requested 2 Units requested Ready [facility] Blood 07/16/2025 7:44 AM CDT 07/16/2025 7:44 AM CDT Narrative [facility] - 07/16/2025 7:44 AM CDT Are special requirements needed? (All products are leukoreduced and CMV- safe)->No Faby Medina MD BLOOD BANK PRODUCT ORDERABL ES Final Result Performing Organization Address [facility] de Phone Number [address] [place] [address] * Prepare RBC: 4 Units (07/16/2025 6:36 AM CDT) Units requested 4 Units requested Ready [facility] Unit Number [id number] Product code [id number] [facility] Blood Expiration Date [facility] Product Blood Type (for scanning) 6200 [facility] Product Blood Type APOS [facility] Dispense Status DISPENSED [facility] Unit Number [id number] Product code [id number] [facility] Blood Expiration Date [id number] [facility] Product Blood Type (for scanning) 6200 [facility] Product Blood Type APONegrito LIN Dispense Status DISPENSED [facility] Blood 07/16/2025 6:36 AM CDT 07/16/2025 6:35 AM CDT Faby Medina MD BLOOD BANK PRODUCT ORDERABL ES Final Result Performing Organization Address [facility] Co de Phone Number [facility] [address] [address] * RAJESH During Case No Interp W/O Contrast [id number] (07/16/2025 6:25 AM CDT) Narrative [facility] - 07/16/2025 6:25 AM CDT Procedure Auto Finalized by Rule: BW CV RAJESH DURING CASE OR Please see the Anesthesiologist's Procedure Note for the results. Faby Medina MD CV ECHO PROCEDURES Final Re sult Performing Organization Address [facility] Co de Phone Number [facility] * ABO / Rh Confirmation Testing (07/16/2025 6:06 AM CDT) ABO/Rh Confirmation A Positive [facility] Blood 07/16/2025 6:06 AM CDT 07/16/2025 6:08 AM CDT Faby Medina MD LAB BLOOD ORDERABLES Final Result Performing Organization Address [facility] Co de Phone Number [facility] [address] [place] [address] [facility] * US Vein Mapping Lower Extremity Bilateral (07/15/2025 8:51 AM CDT) Anatomical Region Laterality Modality Vascular Bilateral Ultrasound 07/15/2025 8:32 AM CDT Narrative 07/15/2025 3:16 PM CDT Lower Extremity Vein Mapping Report Patient Name: WANDA ALICEA : 1980 (45y ) Sex: M Study Date: 07/15/2025 08:32:49 AM Manager Ethics: Deisy De Dios RDMS,RVT Order Provider: FABY [...] Sex: M Study Date: 07/15/2025 08:32:49 AM Manager Ethics: Deisy De Dios RDMS,RVT Order Provider: FABY [...] Study Date: 07/15/2025 8:16:41 AM Sex: M Manager Ethics: Deisy De Dios RDMS,RVT Ref Provider: FABY [...] Study Date: 07/15/2025 8:16:41 AM Sex: M Manager Ethics: Deisy De Dios RDMS,T Ref Provider: FABY [...] ur Yellow Yellow Clarity, ur Clear Clear [facility] Specific gravity, ur 1.022 1.003 - 1.030 [facility] pH, urine 6.0 [facility] Comment: Interpretive Data U rine pH is affected by diet, medications, systemic acid-base disturbances, and renal tubular function. pH may affect urinary stone formation. For example, urine pH below 6.0 may help reduce the tendency for calcium phosphate stones and pH greater than 6.0 may reduce the tendency for uric acid stone formation. Source: [facility] [place] Current Interpretive Data was last revised on 2017 Protein, ur ql Negative Negative [facility] Glucose, ur ql Negative Negative [facility] Ketones, ur Negative Negative [facility] Bilirubin, ur Negative Negative [facility] Blood, ur Negative Negative [facility] Urobilinogen, ur <2.0 <2.0 mg/dL [facility] Nitrite, ur Negative Negative [facility] Leukocyte esterase, ur Negative Negative [facility] UA reflex comment Reflex conditions for microscopic UA and culture not met. [facility] Urine 07/08/2025 11:1 6 AM CDT 07/08/2025 11:38 AM CDT Sabrina rAzate NP LAB MICROBIOLOGY - G ENERAL ORDERABLES Final Result [facility] [address] [facility] Department of Laboratories [place], [place] [id number] * X-ray chest 2 views (07/08/2025 10:28 [...] Vijay Valdovinos M.D. MJ T: Report ID: [id number] Reading Location: [id number] Procedure Note Vijay Valdovinos MD - 2025 [...] Vijay Valdovinos M.D. MJ T: Report ID: [id number] Reading Location: [id number] Fabien Galeas QUALITY ASSOCIATE IMG XR PROCEDURES Final Re sult * [...] MD LAB BLOOD ORDERABLES Final Result [facility] [address] [facility] Department [place] [address] * (ABNORMAL) Differential, auto (07/08/2025 10:16 AM CDT) Neutrophil abs 8.56(H) 1.50 - 6.50 K/cumm Imm gran abs 0.05 0.00 - 0.10 K/cumm [facility] Lymphocyte abs 1.91 0.80 - 3.30 K/cumm [facility] Monocyte abs 0.53 0.20 - 0.80 K/cumm [facility] Eosinophil abs 0.31 0.00 - 0.50 K/cumm [facility] Basophil abs 0.07 0.00 - 0.10 K/cumm [facility] Neutrophil pct 75.0 % [facility] Comment: Interpretive Data Percent cell count reference ranges are not reported, since discordance with absolute values may lead to misinterpretation of CBC data. Current Interpretive Data was last revised on 2018. Imm gran pct 0.4 % [facility] Comment: Interpretive Data Percent cell count reference ranges are not reported, since discordance with absolute values may lead to misinterpretation of CBC data. Current Interpretive Data was last revised on 2018. Lymphocyte pct 16.7 % [facility] Comment: Interpretive Data Percent cell count reference ranges are not reported, since discordance with absolute values may lead to misinterpretation of CBC data. Current Interpretive Data was last revised on 2018. Monocyte pct 4.6 % [facility] Comment: Interpretive Data Percent cell count reference ranges are not reported, since discordance with absolute values may lead to misinterpretation of CBC data. Current Interpretive Data was last revised on 2018. Eosinophil pct 2.7 % [facility] Comment: Interpretive Data Percent cell count reference ranges are not reported, since discordance with absolute values may lead to misinterpretation of CBC data. Current Interpretive Data was last revised on 2018. Basophil pct 0.6 % [facility] Comment: Interpretive Data Percent cell count reference ranges are not reported, since discordance with absolute values may lead to misinterpretation of CBC data. Current Interpretive Data was last revised on 2018. Blood 07/08/2025 10:1 6 AM CDT 07/08/2025 10:22 AM CDT us Faby Medina MD LAB BLOOD ORDERABLES Final Result [facility] ALLEN [address] [facility] Department [place] [address] * (ABNORMAL) CBC with auto differential (07/08/2025 10:16 AM CDT) [facility] WBC 11.43(H) 3.80 - 9.90 K/cumm Hgb 12.9(L) 13.0 - 17.5 g/dL [facility] Hct 39.7 38.9 - 50.3 % [facility] Plt 244 150 - 400 K/cumm [facility] MPV 10.4 9.1 - 12.3 fL [facility] RBC 4.50 4.30 - 5.80 M/cumm [facility] MCV 88.2 81.3 - 96.4 fL [facility] MCH 28.7 27.1 - 33.3 pg [facility] MCHC 32.5 32.3 - 35.7 g/dL [facility] RDW CV 13.3 11.1 - 14.9 % [facility] RDW SD 43.2 35.7 - 48.1 fL [facility] NRBC abs 0.00 0.00 - 0.01 K/cumm [facility] Blood 07/08/2025 10:1 6 AM CDT 07/08/2025 10:22 AM CDT Faby Medina MD LAB BLOOD ORDERABLES Final Result [facility] [address] [facility] Department [place] [address] * MRSA Only (Staphylococcus aureus) PCR Nasal (07/08/2025 10:16 AM CDT) [facility] PCR Scrn, Methicillin resistant Staphylococcus aureus (MRSA) Not Detected Not Detected Comment: Interpretive Data Testing performed using Nucleic Acid Amplification with the Phanfare Xpert MRSA NxG Assay. This assay detects target DNA from mecA, mecC and the SCCmec insertion site of Staphylococcus aureus using Real-Time PCR and has been cleared by the FDA. Performance characteristics have been verified by the [facility]. Current Interpretive Data was last revised on 2023 Nasal 07/08/2025 10:1 6 AM CDT 07/08/2025 10:21 AM CDT Fabien Galeas NP LAB MICROBIOLOGY - GENERAL ORDERABLES Final Result Performing Organization Address [facility] de Phone Number [address] [address] * ABO/Rh (07/08/2025 10:16 AM CDT) ABO/Rh [...] ORDERAB LES Final Result Performing Organization Address [facility] de Phone Number [address] [address] * aPTT (07/08/2025 10:16 AM CDT) Pathologist [facility] aPTT 28 22 - 37 sec Comment: Interpretive data aPTT test has not been evaluated for monitoring heparin therapy. The anti-Xa is the preferred test. Current interpretive data was last revised on 2019. Blood 07/08/2025 10:1 6 AM CDT 07/08/2025 10:22 AM CDT Faby Medina MD LAB BLOOD ORDERABLES Final Result Performing Organization Address [facility] de Phone Number [address] [place] [address] * Protime-INR (07/08/2025 10:16 AM CDT) PT 13.90 12.00 - 14.60 sec INR 1.06 0.90 - 1.20 [facility] Comment: Interpretive data Oral anticoagulant therapeutic ranges: Venous thromboembolism prophylaxis or treatment: 2.0-3.0 CARDIOLOGY Standard range: 2.0-3.0 High-intensity range: 2.5-3.5 Refer to indication-specific guidelines for appropriate target ranges for prosthetic heart valve replacement. Current interpretive data was last revised on 2019. Blood 07/08/2025 10:1 6 AM CDT 07/08/2025 10:22 AM CDT Faby Medina MD LAB BLOOD ORDERABLES Final Result Performing Organization Address [facility] de Phone Number [address] [place] [address] * Crossmatch (07/08/2025 10:16 AM CDT) Crossmatch Compatible [facility] Unit number for crossmatch [id number] [facility] Crossmatch Compatible [facility] Unit number for crossmatch [id number] [facility] Blood 07/08/2025 10:1 6 AM CDT 07/08/2025 10:22 AM CDT Result [facility] Faby Medina MD LAB BLOOD BANK TEST ORDERAB LES Final Result Performing Organization Address [facility] de Phone Number [address] [place] [address] * Antibody screen (07/08/2025 10:16 AM CDT) Rosa, indirect, Gel Interpretation Negative [facility] Blood 07/08/2025 10:1 6 AM CDT 07/08/2025 10:22 AM CDT Narrative [facility] - 07/08/2025 10:59 AM CDT Is this test being ordered in advance for a procedure?->Yes Expected date of procedure:->07/16/25 Has the patient been transfused in the past 3 months?->No Faby Medina MD LAB BLOOD BANK TEST ORDERAB LES Final Result Performing Organization Address [facility] de Phone Number [address] [place] [address] * Hemoglobin A1c (07/08/2025 10:16 AM CDT) Hgb A1C 5.6 4.0 - 5.6 % Estimated Average Glucose 114 mg/dL [facility] Comment: The ADA recommends reporting an estimated Average Glucose (eAG) with all Hemoglobin A1c results using the equation derived from a study of 507 normal and diabetic adults. Minority populations were underrepresented and children were not included. (Diabetes Care 31:4862-2272, 2008). The eAG is not equivalent to a fasting glucose. Blood 07/08/2025 10:1 6 AM CDT 07/08/2025 10:22 AM CDT Faby Medina MD LAB BLOOD ORDERABLES Final Result [facility] [address] [place] [address] * (ABNORMAL) Comprehensive metabolic panel (07/08/2025 10:16 AM CDT) Pathologist [facility] Sodium 137 135 - 145 mmol/L Potassium, pl 3.6 3.3 - 4.9 mmol/L [facility] Chloride 105 97 - 110 mmol/L [facility] CO2 24 22 - 32 mmol/L [facility] Anion gap 8 2 - 15 mmol/L [facility] BUN 11 6 - 25 mg/dL [facility] Creatinine 0.73(L) 0.80 - 1.30 mg/dL [facility] Glucose 114 70 - 199 mg/dL [facility] Comment: Interpretive Data Fasting glucose >/= 126 [...] 2022. Calcium 9.2 8.5 - 10.3 mg/dL [facility] Bilirubin, total 0.4 0.1 - 1.2 mg/dL [facility] Protein, pl 7.0 6.5 - 8.5 g/dL [facility] Albumin 3.7 3.5 - 5.0 g/dL [facility] Alk phos 119 40 - 130 Units/L [facility] ALT 40 7 - 55 Units/L [facility] AST 36 10 - 50 Units/L [facility] Blood 07/08/2025 10:1 6 AM CDT 07/08/2025 10:22 AM CDT Faby Medina MD LAB BLOOD ORDERABLES Final Result Performing Organization Address City/[facility] Co de Phone Number [facility] [address] [facility] Department [place] [address] * ECG 12 lead (07/08/2025 10:03 AM CDT) Pathologist [facility] Ventricular Rate EKG/Min 81 BPM [facility] Atrial Rate 81 BPM [facility] MI-Interval (MSEC) 154 ms [facility] QRS-Interval (MSEC) 100 ms [facility] QT-Interval (MSEC) 368 ms [facility] QTc 427 ms [facility] P [place] 34 degrees [facility] R [place] 163 degrees [facility] T [place] 72 degrees [facility] Diagnosis Normal sinus rhythm Right axis deviation Abnormal ECG No previous ECGs available Confirmed by JANELLE COBB M.D. ([id number]) on 07/08/2025 12:07:43 PM [facility] 07/08/2025 10:0 3 AM CDT 07/08/2025 12:07 PM CDT Faby Median MD ECG ORDERABLES Final Resul t Performing Organization Address City/[facility] Co de Phone Number [facility] * TRANSTHORACIC ECHO (TTE) COMPLETE W DOPPLER/CF [...] AM Ht(Inch): 74 Wt(Lb): 352.01 BSA: 2.89 Manager Ethics: Melita Polanco RDCS Order Provider: FABY MEDINA Heart Rate: 85 BMI: 45.19 BP: 135 / 88 Ref Provider: FABY MEDINA PROCEDURES: Echocardiographic Report: ([id number]) Transthoracic complete echo, 2D, spectral and tissue Doppler, color flow Doppler, M-mode. Contrast: Patient refused contrast. Technically difficult study due to: Technically difficult study due to Body Habitus/ current smoker. INDICATIONS: Pre [address] way bypass and Coronary artery disease, [place] vessel. FINDINGS: Left Ventricle: Normal left ventricular [...] 61 % [ 52 - 72 ] RNO Vmax 2.40 cm2 Visually Estimated EF 60-65 [...] AM Ht(Inch): 74 Wt(Lb): 352.01 BSA: 2.89 Manager Ethics: Melita Polanco FRAN Order Provider: FABY MEDINA Heart Rate: 85 BMI: 45.19 BP: 135 / 88 Ref Provider: FABY MEDINA PROCEDURES: Echocardiographic Report: ([id number]) Transthoracic complete echo, 2D,spectral and tissue Doppler, color flow Doppler, M-mode. Contrast: Patient refused contrast. Technically difficult study due to: Technically difficult study due toBody Habitus/ current smoker. INDICATIONS: Pre 2 way bypass and Coronary artery disease, [place] vessel. FINDINGS: Left Ventricle: Normal left ventricular [...] Outside Reference (06/30/2025 9:53 AM CDT) Impressions [facility] - 06/30/2025 9:53 AM CDT These images are for Reference purposes only and have not been reviewed by [facility] Radiology. There will be no report generated by a [facility] Radiologist. Narrative [facility] - 06/30/2025 9:53 AM CDT EXAMINATION: Images [...] Advance Directives For more information, please contact: [phone] * Full Code (Latest Code Status on File) Date Activated Date Inactivated Comments 07/16/2025 1:21 PM 07/20/2025 9:28 PM Care Teams Business Trainer Relationship Specialty Start Date End Date Samy Hendrickson MD [address] [place] [address] PCP - General Family Medicine 02/22/25 Vijay Saravia MD [address] [address] Consulting Physician Cardiology 07/08/25
[2025-08-22 09:43] LABS: Alanine Aminotransferase 55 U/L (6-50); Albumin Level 4.7 g/dL (3.5-5.1); Alkaline Phosphatase 117 U/L (38-126); Anion Gap 10 mmol/L (4-12); Aspartate Amino Transferase 49 U/L (17-59); Bilirubin,Total 0.8 mg/dL (0.2-1.3); Blood Urea Nitrogen 12 mg/dL (9-20); Calcium 9.3 mg/dL (8.4-10.2); Carbon Dioxide 29 mmol/L (22-30); Chloride 102 mmol/L (98-107); Estimated CRCL calculation 164 ml/min; Estimated Glomerular Filt Rate > 60; Glucose 126 mg/dL (65-110); Potassium 4.3 mmol/L (3.4-5.0); Sodium 141 mmol/L (137-145); Total Protein 8.9 g/dL (6.3-8.2)
[2025-08-22 10:00] LABS: NT Pro B Type Natriuretic Pept 72 pg/mL (19.9-100)
[2025-08-22 10:50] LABS: Influenza A QL RT-PCR Negative (Negative); Influenza B QL RT-PCR Negative (Negative); RSV RNA, RT-PCR Negative (Negative); SARS-CoV-2 RNA PCR Negative (Negative)
[2025-08-22 11:15] VITALS: BP 152/88; PULSE 65; RESP 18; O2SAT 97
[2025-08-22 11:54] VITALS: BP 153/94; PULSE 68; RESP 20; O2SAT 95
== END 2025-08-22 11:56 | disposition home or self-care (01) ==
PROVIDERS: Emergency Provider Emergency Medicine; PCP Family Medicine
DX: I31.39 Other pericardial effusion (noninflammatory) (principal); I50.9 Heart failure, unspecified; I25.10 Atherosclerotic heart disease of native coronary artery without angina pectoris; Z79.82 Long term (current) use of aspirin; F17.210 Nicotine dependence, cigarettes, uncomplicated; Z20.822 Contact with and (suspected) exposure to COVID-19
CPT/HCPCS: 36415; 71046; 71275; 80053; 83880; 85025; 85380; 87637; 93005; 99284; Q9967